=== PATIENT | female | born 1940 | race Caucasian/White ===

== ENCOUNTER → 2024-09-17 | Outpatient (CLI) | payer OTHER, SELFPAY ==
[2024-09-17 08:33] LABS: Basophils % (Auto) 1 % (0-2.5); Eosinophils # (Auto) 0.1 Thou/mm3 (0.0-0.5); Eosinophils % (Auto) 2 % (0-10); Hematocrit 38.1 % (36.0-46.0); Hemoglobin 12.7 g/dL (12.0-16.0); Immature Granulocytes % (Auto) 0 % (0-0); Immature Granulocytes Auto 0.01 Thou/mm3 (0.00-0.00); Lymphocytes # (Auto) 1.6 Thou/mm3 (1.0-4.8); Lymphocytes % (Auto) 26 % (10-50); Mean Corpuscular HGB Conc 33.3 g/dl (31.0-37.0); Mean Corpuscular Hemoglobin 31.9 pg (25.0-35.0); Mean Corpuscular Volume 96 fL (80-100); Monocytes # (Auto) 0.5 Thou/mm3 (0.0-0.8); Monocytes % (Auto) 9 % (0-12); Neutrophils # (Auto) 3.9 Thou/mm3 (1.8-7.7); Neutrophils % (Auto) 64 % (37-80); Nucleated Red Blood Cell % 0 /100 WBC (0); Platelet Count 186 Thou/mm3 (140-440); RDW Standard Deviation 44.8 fL (36.4-46.3); Red Blood Count 3.98 Miln/mm3 (4.00-5.20); White Blood Count 6.2 Thou/mm3 (3.6-11.0)
[2024-09-17 08:43] LABS: Alanine Aminotransferase 15 U/L (10-49); Albumin, Serum 4.4 gm/dL (3.4-4.8); Albumin/Globulin Ratio 1.7 (1.2-2.2); Alkaline Phosphatase 66 U/L (46-116); Anion Gap 8 (7-16); Aspartate Amino Transferase 20 U/L (0-34); BUN/Creatinine Ratio 20 Ratio (12-20); Bilirubin,Total 0.7 mg/dL (0.3-1.2); Blood Urea Nitrogen 22 mg/dL (9-23); Calcium 9.9 mg/dL (8.3-10.6); Calcium (Corrected) 9.9 mg/dL (8.5-10.1); Carbon Dioxide 32.5 mMol/L (20.0-31.0); Cardiac Risk Estimate 2.8 RATIO (3.7-5.6); Chloride 102 mMol/L (98-107); Cholesterol 203 mg/dL (132-200); Creatinine (Component) 1.1 mg/dL (0.6-1.3); Globulin 2.6 gm/dL (2.3-3.5); Glucose 116 mg/dL (74-106); HDL Cholesterol 72 mg/dL (40-60); LDL Cholesterol,Calculated 115 mg/dL (0-130); Osmolality,Calculated 287 (275-295); Potassium 4.3 mMol/L (3.4-5.1); Sodium 142 mMol/L (136-145); Triglycerides 80 mg/dL (30-150); eGFR 49 See Note
[2024-09-17 13:29] LABS: Collection Type, Urine Clean Catch
[2024-09-17 14:01] LABS: Bilirubin,Urine Negative (Negative); Blood,Urine Negative (Negative); Clarity,Urine Clear (Clear/Hazy); Color,Urine Yellow (Lt Yel-Yel); Glucose, Urine Negative (Negative); Hyaline Casts,Urine < 1 /hpf (0-1); Ketones,Urine Negative (Negative); Leukocyte Esterase,Urine Negative (Negative); Nitrite,Urine Negative (Negative); Protein,Urine Negative (Neg - Trace); RBC,Urine 1 /hpf (0-3); Squamous Epithelial Cell,Urine 8 /hpf (0-5); Urobilinogen,Urine Negative mg/dL (0.0-1.0); WBC,Urine 2 /hpf (0-5)
== END | disposition home or self-care (01) ==
LOC: COPL 06:39
PROVIDERS: PCP Internal Medicine; Referring Provider Internal Medicine; Visit Provider Internal Medicine Cardiovascular Disease
DX: I48.91 Unspecified atrial fibrillation (principal)
CPT/HCPCS: 36415; 80053; 80061; 81001; 85025

== ENCOUNTER → 2025-01-20 | Outpatient (CLI) | payer OTHER, SELFPAY ==
--- NOTE | 2025-01-20 | XR_ITS ---
EXAMINATION: Cervical spine, 5 views Technique: Cervical spine AP, AP odontoid, lateral, bilateral obliques, 5 views Exam date and time: January 20, 2025 0720 hours INDICATIONS: Left-sided neck pain beginning 5 years ago. FINDINGS: Straightening normal cervical lordosis. No cervical vertebral body compression fracture The odontoid is not well visualized on the lateral view Partial fusion C4-C5 Advanced degenerative disc disease C6-C7 Diffuse posterior osteophyte formation Diffuse mild to moderate bilateral neural foraminal stenosis IMPRESSION: Partial fusion C4-C5 Advanced degenerative disc disease C6-C7 Bilateral neural foraminal stenosis as above The odontoid is not well visualized on the lateral view, suggest CT scan cervical spine follow-up as clinically warranted
[2025-01-20 07:59] LABS: Collection Type, Urine Clean Catch
[2025-01-20 08:30] LABS: Alanine Aminotransferase 13 U/L (10-49); Albumin, Serum 4.5 gm/dL (3.4-4.8); Alkaline Phosphatase 59 U/L (46-116); Anion Gap 7 (7-16); BUN/Creatinine Ratio 13 Ratio (12-20); Bilirubin,Total 0.7 mg/dL (0.3-1.2); Blood Urea Nitrogen 13 mg/dL (9-23); Calcium 9.9 mg/dL (8.3-10.6); Calcium (Corrected) 9.9 mg/dL (8.5-10.1); Carbon Dioxide 29.9 mMol/L (20.0-31.0); Chloride 102 mMol/L (98-107); Cholesterol 219 mg/dL (132-200); Globulin 2.3 gm/dL (2.3-3.5); Glucose 126 mg/dL (74-106); HDL Cholesterol 72 mg/dL (40-60); LDL Cholesterol,Calculated 128 mg/dL (0-130); Osmolality,Calculated 279 (275-295); Potassium 4.8 mMol/L (3.4-5.1); Sodium 139 mMol/L (136-145); Total Protein 6.8 gm/dL (5.7-8.2); Triglycerides 94 mg/dL (30-150); eGFR 55 See Note
[2025-01-20 08:35] LABS: Basophils % (Auto) 1 % (0-2.5); Eosinophils # (Auto) 0.1 Thou/mm3 (0.0-0.5); Eosinophils % (Auto) 1 % (0-10); Hematocrit 36.3 % (36.0-46.0); Hemoglobin 12.5 g/dL (12.0-16.0); Immature Granulocytes % (Auto) 0 % (0-0); Immature Granulocytes Auto 0.01 Thou/mm3 (0.00-0.00); Lymphocytes # (Auto) 1.9 Thou/mm3 (1.0-4.8); Lymphocytes % (Auto) 28 % (10-50); Mean Corpuscular HGB Conc 34.4 g/dl (31.0-37.0); Mean Corpuscular Hemoglobin 32.1 pg (25.0-35.0); Mean Corpuscular Volume 93 fL (80-100); Monocytes # (Auto) 0.6 Thou/mm3 (0.0-0.8); Monocytes % (Auto) 9 % (0-12); Neutrophils # (Auto) 4.1 Thou/mm3 (1.8-7.7); Neutrophils % (Auto) 61 % (37-80); Nucleated Red Blood Cell % 0 /100 WBC (0); Platelet Count 234 Thou/mm3 (140-440); RDW Standard Deviation 44.6 fL (36.4-46.3); Red Blood Count 3.89 Miln/mm3 (4.00-5.20); White Blood Count 6.8 Thou/mm3 (3.6-11.0)
[2025-01-20 09:01] LABS: Bilirubin,Urine Negative (Negative); Blood,Urine Negative (Negative); Clarity,Urine Clear (Clear/Hazy); Color,Urine Yellow (Lt Yel-Yel); Glucose, Urine Negative (Negative); Hyaline Casts,Urine < 1 /hpf (0-1); Ketones,Urine Negative (Negative); Leukocyte Esterase,Urine Negative (Negative); Nitrite,Urine Negative (Negative); PH,Urine 6.5 (5.0-7.0); Protein,Urine Trace (Neg - Trace); RBC,Urine 4 /hpf (0-3); Specific Gravity,Urine 1.021 (1.001-1.035); Squamous Epithelial Cell,Urine 3 /hpf (0-5); Urobilinogen,Urine Negative mg/dL (0.0-1.0); WBC,Urine 3 /hpf (0-5)
== END | disposition home or self-care (01) ==
LOC: CDIM 06:40
PROVIDERS: PCP Internal Medicine; Referring Provider Internal Medicine; Visit Provider Internal Medicine
DX: M50.323 Other cervical disc degeneration at C6-C7 level (principal); M48.02 Spinal stenosis, cervical region; M43.22 Fusion of spine, cervical region
CPT/HCPCS: 36415; 72050; 80053; 80061; 81001; 85025

== ENCOUNTER → 2025-02-13 | Outpatient (CLI) | payer OTHER, SELFPAY ==
--- NOTE | 2025-02-13 09:15 | XR_ITS ---
Examination: Breast ultrasound complete, bilateral Date and time of exam: February 13, 2025 0922 hours INDICATIONS: Breast pain beginning one year ago Technique: Real-time grayscale ultrasonographic imaging bilateral breasts, including all 4 quadrants as well as nipple retroareolar and axillary regions. Findings: Sonographic images right and left breast demonstrated no cystic or solid masses IMPRESSION: BI-RADS Category 1: Negative studies
== END | disposition home or self-care (01) ==
PROVIDERS: PCP Internal Medicine; Referring Provider Internal Medicine; Visit Provider Internal Medicine
DX: N64.4 Mastodynia (principal)
CPT/HCPCS: 76641

== ENCOUNTER 2025-02-25 07:17 | Inpatient (IN) | payer OTHER, MEDICARE, SELFPAY ==
[2025-02-25] VITALS (9 sets, daily range): BP systolic 92–140; BP diastolic 49–75; PULSE 52–93; RESP 14–20; TEMP 36.4–36.8; O2SAT 94–100; BMI 22.6
--- NOTE | 2025-02-25 07:35 | XR_ITS ---
Examination: CT brain head without contrast. Date and time of exam: TECHNIQUE: 2024, 0806 hours INDICATIONS: Stroke alert, onset altered mental status today CTDI: vol (mGy):130 DLP: (mGycm):3085 Technique: Multiple axial sections of the brain to been obtained, 5 mm slice thickness. Contrast has not been administered. 2-D sagittal, coronal reconstructions have been obtained Low dose protocols were performed. One or more of the following dose reduction techniques were used; automated exposure control, adjustment of the mA and/or KV according to patient size, use of iterative reconstruction technique. Findings: No significant ventricular enlargement. Intra-axial or extra-axial hemorrhage density is not seen. No mass effect or midline shift. Basal cisterns are not remarkable. Fourth ventricle is midline. Cranial vault intact. Impression: Negative for acute hemorrhage, mass effect or midline shift
--- NOTE | 2025-02-25 07:35 | XR_ITS ---
Examination:Right hip AP, lateral, AP pelvis 3 views Technique: Hip AP lateral, AP pelvis, 3 views Exam date and time:February 25, 2025 0743 hours INDICATIONS: Patient fell today with injury to the right hip, right hip pain. FINDINGS: Acute displaced fracture right femoral neck Left hip bones of the pelvis is intact IMPRESSION: Acute displaced fracture right femoral neck.
[2025-02-25] MEDS: MORPHINE SULF INJ 10 MG/ML VIAL 4 MG IVP ×2 (07:59→11:15)
--- NOTE | 2025-02-25 08:06 | PC.NURSE ---
PATIENT ARRIVED ED WITH COMPLAINT OF RIGHT HIP PAIN S/P FALL THIS MORNING. PATIENT STATES SHE WAS OUTSIDE IN THE YARD PICKING UP TRASH WITH SHE LOST HER BALANCE LANDING ON HER RIGHT HIP. PATIENT WITH SHORTENING AND EXTERNAL ROTATION. PATIENT ALSO PRESENTS WITH SKIN TEAR TO RIGHT ARM. PATIENT WITH PAIN 10/10 ON PAIN SCALE. EMS ADMINISTERED 56MG FENTANYL AND 1000MG TYLENOL. PATIENT DENIES HEAD PAIN AND NO TRAUMA. CALL LIGHT WITHIN REACH. WILL CONTINUE TO MONITOR
--- NOTE | 2025-02-25 08:27 | PD.EDFALL ---
ED Fall Injury RME/HPI General Chief Complaint: Fall Stated Complaint: HIP PAIN Time Seen by Provider: 02/25/25 07:28 Arrival date/time: 02/25/25 07:17 RME / HPI RME / HPI Narrative: 84 year old female with a nonsyncopal trip and fall accident earlier this morning in her backyard. She did not hit her head. No loss of consciousness. Related Data Home Medications ?Medication ?Instructions ?Recorded ?Confirmed amiodarone 200 mg tablet 200 mg PO QPM 09/04/18 10/31/23 aspirin 81 mg tablet,delayed 81 mg PO DAILY 05/20/19 10/31/23 release (Aspir-) timolol 0.5 % eye drops 1 drp ophthalmic (eye) BID 05/20/19 10/31/23 albuterol 90 mcg/actuation aerosol 90 mcg inhalation PRN PRN 05/09/22 10/31/23 inhaler Shortness Of Breath Or Wheezing ferrous sulfate 325 mg (65 mg 325 mg PO DAILY 05/09/22 10/31/23 iron) capsule,extended release ferrous sulfate 325 mg (65 mg 325 mg PO QDAY 05/09/22 10/31/23 iron) tablet (iron) fluticasone propionate 50 1 spray intranasal HS 05/09/22 10/31/23 mcg/actuation nasal spray,suspension loratadine 10 mg tablet 10 mg PO QDAY 05/09/22 10/31/23 chykatps-kxnx-csek 8 mg-folic 400 1 tab PO DAILY 05/09/22 10/31/23 mcg-K 50 mcg-lutein 300 mcg tablet (Centrum Silver Women) nitroglycerin 0.4 mg sublingual 0.4 mg buccal 1XD PRN Chest Pain 05/09/22 10/31/23 tablet tizanidine 2 mg tablet 2 mg PO DAILY 05/09/22 10/31/23 vitamin E 400 unit tablet 45 mg PO QDAY 05/09/22 10/31/23 mirabegron 25 mg tablet,extended 25 mg PO QDAY 03/02/23 10/31/23 release 24 hr (Myrbetriq) Allergies Allergy/AdvReac Type Severity Reaction Status Date / Time Iodine and Iodide Containing AdvReac Mild Rash Verified 09/22/23 08:11 Produc Review of Systems Review of Systems Systems Reviewed: All systems reviewed, normal except as documented Past Medical History Past Medical History NEUROLOGIC: Negative Neurological Disorders, Cerebrovascular Accident, Transient Ischemic Attacks (TIA), Dementia, Alzheimer's Disease, Parkinson's Disease, Brain Tumor, Meningitis, Seizures, Epilepsy, Multiple Sclerosis, Cerebral Palsy, Amyotrophic Lateral Sclerosis (ALS/Sarah Gehrig's), Guillain-[place] Syndrome, Spina Bifida, Paralysis, Peripheral Neuropathy, Perez's Palsy, Subdural Hematoma, Migraine, Head Trauma, Spinal Cord Injury or Traumatic Brain Injury CARDIAC: Positive Cardiac Disorders, Angina, Coronary Artery Disease, Atherosclerotic Heart Disease and Edema; Negative Myocardial Infarction, Cardiac Arrhythmia, Atrial Fibrillation, Heart Murmur, Peripheral Vascular Disease, Hypercholesterolemia, Aneurysm, Congestive Heart Failure, Congenital Heart Disease, Valvular Heart Disease, Rheumatic Fever, Cardiomyopathy, Pericarditis, Cellulitis, Deep Vein Thrombosis, Hypertension, Hypotension or Varicose Veins RESPIRATORY: Positive Chronic Obstructive Pulmonary Disease (COPD); Negative Asthma, Bronchitis, Emphysema, Pneumonia, Pulmonary Fibrosis, Cystic Fibrosis, Tuberculosis, Pulmonary Embolism, Pulmonary Edema or Sleep Apnea GASTROINTESTINAL: Positive Gastrointestinal Disorders and Gall Bladder Disease (CHOLECYSTECTOMY); Negative Hepatitis, Cirrhosis, Pancreatitis, Celiac Disease, Gastrointestinal Bleed, Esophageal Varices, Munoz's Esophagus, Colitis, Ulcerative Colitis, Diverticulitis, Diverticulosis, Ulcer, Colorectal Cancer, Irritable Bowel, Crohn's Disease, Obstructive Bowel, Hiatal Hernia, Hemorrhoids, Gastroesophageal Reflux Disease or Obesity GENITOURINARY: Negative Genitourinary Disorders, Renal Disease, Kidney Stones, Polycystic Kidney Disease, Neurogenic Bladder, Inguinal Hernia, Dialysis or Prostate Cancer REPRODUCTIVE: Positive Previous Pregnancies (); Negative Breast Cancer, Endometriosis, Genital Herpes, Gonorrhea, Pelvic Inflammatory Disease, Syphilis, Testicular Cancer or Uterine Prolapse MUSCULOSKELETAL: Positive Musculoskeletal Disorders, Arthritis and Fractures (L ARM); Negative Muscular Dystrophy, Myasthenia Gravis, Marfan's Syndrome, Bone Cancer, Rheumatoid Arthritis, Osteoporosis, Degenerative Disk Disease, Gout, Scoliosis, Carpal Tunnel Syndrome, Fibromyalgia, Degenerative Joint Disease, Osteomyelitis or Poliovirus ENT: Positive Glaucoma; Negative Cataracts, Blind, Retinal Detachment, Macular Degeneration, Ear Infection, Deafness, Head Trauma or Eye Prosthesis ENDOCRINE: Negative Endocrine Disorders, Diabetes Mellitus Type 1, Diabetes Mellitus Type 2, Hypoglycemia, [place]'s Syndrome, Ryne's Disease, Hyperthyroidism, Hypothyroidism, Parathyroid Disease, Pituitary Disease, Systemic Lupus Erythematosus, Syndrome of Inappropriate Antidiuretic Hormone (SIADH), Adrenal Disease or Graves' Disease HEMATOLOGIC: Negative Blood Disorders, Anemia, Leukemia, Hemophilia, Thalassemia or Sickle Cell Disease PSYCHO/SOCIAL: Negative Psychiatric Problems, Schizophrenia, Recreational Drug Use, Bipolar Disorder, Depression, Anxiety, Behavior Problems, Self-Mutilation, Attention Deficit Disorder, Attention Deficit Hyperactivity Disorder, Depression, Post Traumatic Stress Disorder or Eating Disorder OTHER HISTORY: Positive Hospitalization, Shingles, Falls, Chicken Pox and Measles; Negative Autoimmune Disease, Down Syndrome, Autism, Developmental Delay, Blood Transfusions, Blood Transfusion Reaction, Anesthesia Reactions, Organ Transplant, Chemotherapy, Radiation Therapy, Hyperbaric Therapy, MRSA, Vancomycin-Resistant Enterococci, Human Immunodeficiency Virus (HIV), Mumps, Rubella (Iranian Measles), Pertussis, Clostridium Difficile, Cancer, Breast Cancer, Cervical Cancer, Colorectal Cancer, Lung Cancer, Ovarian Cancer, Prostate Cancer or Testicular Cancer Family History FAMILY HISTORY: Positive Family Respiratory Disorders (FATHER), Family Cardiac Disorders (SISTER), Family Gastrointestinal Problems and Family Cancer; Negative Family Psychiatric Problems, Family Surgery or Family Anesthesia Reaction Surgical History SURGICAL: Positive Cardiac Catheterization, Angiogram, Tonsillectomy, Abdominal Surgery and Hysterectomy; Negative Cardiac Surgery, Open Heart Surgery, Coronary Artery Bypass Graft, Valve Replacement, Vascular Surgery, Coronary Stent, Pacemaker, Auto Implanted Cardiovert Defib, Carotid Endarterectomy, Endocrine Surgery, Thyroidectomy, Ear Surgery, Tympanostomy Tube, Eye Surgery, Nose Surgery, Oral Surgery, Adenoidectomy, Cochlear Implant, Corneal Transplant, Throat Surgery, Tracheostomy, Gastric Bypass Surgery, Gastrostomy, Bowel Surgery, Nephrectomy, Transurethral Resection, Joint Replacement, Amputation, Open Reduction Internal Fixation, Arthroscopy, Neurologic Surgery, Brain Shunt, Mastectomy, Lumpectomy, Tubal Ligation, Section or Organ Transplant Social History SMOKING STATUS: Never smoker ED Exam Narrative Physical exam: Generally patient is alert in mild to moderate distress secondary to pain. Heart regular rate and rhythm lungs clear to auscultation bilaterally abdomen soft bowel sounds present times and nontender extremities show external rotation and shortening of the right lower extremity with tenderness at the right hip. Patient's right lower extremity is neurovascularly intact. Course Quality Measures none Orders Category Date Time Status Admit to Inpatient Status Routine Admission 02/25/25 09:43 Active Patient Condition Routine Admission 02/25/25 09:42 Ordered Activity as Tolerated Routine Care 02/25/25 09:43 Ordered Continuous Pulse Oximetry NOW Care 02/25/25 09:42 Active Notify provider NEEDED Care 02/25/25 09:42 Active Obtain Written Consent For: .NOW Care 02/25/25 09:41 Active Obtain weight X1 Care 02/25/25 09:42 Active XR chest 1V portable Stat Exams 02/25/25 07:35 Completed XR femur RT 2V Stat Exams 02/25/25 09:42 Ordered XR hip RT w pelvis 2-3V Stat Exams 02/25/25 07:35 Completed XR knee RT 3V Stat Exams 02/25/25 09:42 Ordered CBC Stat Lab 02/25/25 08:15 Completed CMP [Comprehensive Metabolic Panel] Stat Lab 02/25/25 08:15 Completed PT [Prothrombin Time with INR] Stat Lab 02/25/25 08:15 Completed HYDROcodone*/APAP 5/325 [[place] 5/325] Med 02/25/25 09:42 Active 1 tab PO Q4HR PRN Morphine Inj Med 02/25/25 07:35 Discontinued 4 mg IVP X1 ONE Code Status Routine Oth 02/25/25 09:42 Ordered Oxygen Delivery PRN RT 02/25/25 09:42 Active Vital Signs Vital signs: Vital Signs Temperature 97.9 F 02/25/25 07:28 Pulse Rate 62 02/25/25 07:28 Respiratory Rate 20 02/25/25 07:28 Blood Pressure 127/75 02/25/25 07:28 Fall MDM Narrative MDM Narrative:: X-ray of the right hip shows a femoral neck fracture. Preop labs were ordered. I discussed this case with orthopedic surgeon Dr. Gonzalez who asked for full femur x-rays to be obtained as well as the knee so those were ordered as well. I discussed this with the hospitalist. Patient will be admitted to the hospital for further treatment and evaluation for her right femoral neck fracture. Patient data External records reviewed:: [facility] previous records Clinical information provided by:: patient Social determinants that could affect healthcare access:: none Patient has the following chronic illnesses:: Atrial fibrillation How is presenting disease/condition affected by chronic disease/condition?: no chronic disease Evaluation data The following diagnostics were reviewed and interpreted by me:: lab results and radiology exam(s) Lab and/or radiology exams considered but not ordered:: None Interpretation Summary: All labs were reviewed and interpreted by myself Medications / Prescriptions Medications or Prescriptions considered but not ordered:: Medications were reviewed Medication administrations:: Medication Administration History Hydrocodone Bitart/Acetaminophen (Hydrocodone/Apap 5/325 Tablet) 1 tab PO Q4HR PRN PRN Reason: PAIN SCALE 4-6 (Moderate Stop: 03/02/25 09:41 Discontinued Medications Morphine Sulfate (Morphine Sulf Inj 10 Mg/Ml Vial) 4 mg IVP X1 ONE Stop: 02/25/25 07:36 Last Admin: 02/25/25 07:59 Dose: 4 mg Documented By: SM See above Consultations Consultation(s) initiated? (list below): Yes Consultation #1 (Physician, Specialty, Details): Dr. Gonzalez Time: 09:30 Consultation #2 (Physician, Specialty, Details): Hospitalist Time: 09:40 Diagnosis Fall Differential Diagnosis: other Most likely diagnosis given after review of the tests above:: Right femoral neck fracture Admission Indicated Admission indicated?: indicated Admission Request Was there a request for admission?: Yes Admission Attestation Admission request attestation: Discussed case with [] from Hospitalist service regarding admission. Discussed patients ED course, exam findings, labs, and radiology results. The Hospitalist [agrees,declines] to accept the patient for admission. Disposition Plan Disposition Plan: Admit Discharge Plan Plan Patient Disposition: Admit Acute Care w/in Hospital Prescriptions/Referrals Prescriptions/Med Rec: No Action Myrbetriq 25 mg tablet extended release 24 hr 25 mg PO QDAY amiodarone 200 mg Tablet 200 mg PO QPM aspirin [Aspir-81] 81 mg Tablet,Delayed Release (Dr/Ec) 81 mg PO DAILY timolol 0.5 % Drops 1 drp OPHTHALMIC (EYE) BID nitroglycerin 0.4 mg Tablet, Sublingual 0.4 mg BUCCAL 1XD PRN (Reason: Chest Pain) fluticasone propionate 50 mcg/actuation [place],Suspension 1 spray INTRANASAL HS Rx Instructions: administer into each nostril ferrous sulfate 325 mg (65 mg iron) Capsule, Extended Release 325 mg PO DAILY tizanidine 2 mg Tablet 2 mg PO DAILY Centrum Silver Women 8 mg iron-400 mcg-300 mcg Tablet 1 tab PO DAILY ferrous sulfate [iron] 325 mg (65 mg iron) Tablet 325 mg PO QDAY vitamin E 400 unit Tablet 45 mg PO QDAY albuterol 90 mcg/actuation Aerosol 90 mcg INHALATION PRN PRN (Reason: Shortness Of Breath Or Wheezing) loratadine 10 mg Tablet 10 mg PO QDAY Referrals: Adriana Knutson MD [Primary Care Provider] - In 1 week Problem List Clinical Impression: Closed displaced fracture of right femoral neck Patient/Caregiver Discharge Instructions Print Language: Algerian Stand Alone Forms: Kateryna Award Info., Patient Portal Info Letter
[2025-02-25 08:32] LABS: Basophils # (Auto) 0.0 Thou/mm3 (0.0-0.2); Basophils % (Auto) 0 % (0-2.5); Eosinophils # (Auto) 0.0 Thou/mm3 (0.0-0.5); Eosinophils % (Auto) 0 % (0-10); Hematocrit 33.2 % (36.0-46.0); Hemoglobin 11.5 g/dL (12.0-16.0); Immature Granulocytes Auto 0.08 Thou/mm3 (0.00-0.00); Lymphocytes # (Auto) 1.4 Thou/mm3 (1.0-4.8); Lymphocytes % (Auto) 13 % (10-50); Mean Corpuscular HGB Conc 34.6 g/dl (31.0-37.0); Mean Corpuscular Hemoglobin 32.5 pg (25.0-35.0); Mean Corpuscular Volume 94 fL (80-100); Monocytes # (Auto) 0.6 Thou/mm3 (0.0-0.8); Monocytes % (Auto) 6 % (0-12); Neutrophils # (Auto) 8.3 Thou/mm3 (1.8-7.7); Neutrophils % (Auto) 80 % (37-80); Nucleated Red Blood Cell # 0.00 Thou/mm3 (0.00-0.00); Nucleated Red Blood Cell % 0 /100 WBC (0); Platelet Count 189 Thou/mm3 (140-440); RDW Standard Deviation 44.6 fL (36.4-46.3); Red Blood Count 3.54 Miln/mm3 (4.00-5.20); White Blood Count 10.3 Thou/mm3 (3.6-11.0)
[2025-02-25 08:42] LABS: INR 1.1 (0.9-1.3); Prothrombin Time 11.9 Seconds (9.0-12.2)
[2025-02-25 08:44] LABS: Alanine Aminotransferase 22 U/L (10-49); Albumin, Serum 4.0 gm/dL (3.4-4.8); Albumin/Globulin Ratio 1.7 (1.2-2.2); Alkaline Phosphatase 56 U/L (46-116); Anion Gap 7 (7-16); Aspartate Amino Transferase 23 U/L (0-34); BUN/Creatinine Ratio 13 Ratio (12-20); Bilirubin,Total 0.8 mg/dL (0.3-1.2); Blood Urea Nitrogen 13 mg/dL (9-23); Calcium 9.5 mg/dL (8.3-10.6); Calcium (Corrected) 9.5 mg/dL (8.5-10.1); Carbon Dioxide 26.8 mMol/L (20.0-31.0); Chloride 100 mMol/L (98-107); Creatinine (Component) 1.0 mg/dL (0.6-1.3); Estimated Creatinine Clearance 36.9 mL/min (>60); Globulin 2.3 gm/dL (2.3-3.5); Glucose 148 mg/dL (74-106); Osmolality,Calculated 271 (275-295); Potassium 4.5 mMol/L (3.4-5.1); Sodium 134 mMol/L (136-145); Total Protein 6.3 gm/dL (5.7-8.2); eGFR 55 See Note
--- NOTE | 2025-02-25 09:42 | XR_ITS ---
Examination: Right knee 2 views TECHNIQUE: Portable AP lateral right knee 2 views Date and time: February 25, 2025 at 0951 hours FINDINGS: Limited study, no true lateral view the knee No fracture depicted Moderate narrowing medial lateral patellofemoral joints IMPRESSION: Limited study with no acute fracture
--- NOTE | 2025-02-25 09:42 | XR_ITS ---
Indication: Right femur 2 views Technique one AP lateral right femur 2 views Date and time: February 25, 2025 0948 hours INDICATIONS: Patient fell today with injury to the femur, femur pain. FINDINGS: Acute displaced right femoral neck fracture. Shaft of the femur intact IMPRESSION: Acute displaced right femoral neck fracture
[2025-02-25] MEDS: ONDANSETRON INJ 2 MG/ML INJ 2 ML 4 MG IV ×2 (11:15→20:21)
--- NOTE | 2025-02-25 11:29 | PD.RESHP ---
Documentation for date of: 02/25/25 HPI History of Present Illness Chief complaint: Fracture of Rt femoral neck History of present illness: Mayi Fox is a 84F pmhx significant for atrial fibrillation, CKDIII, COPD on 2L at home, depression, and anemia who presents with mechanical fall. She reports that earlier this morning she was gardening in the back yard when she tripped over her feet and fell. Denies frequent falls, syncope, dizziness or palpitations at the time of the fall or currently. Reports that she uses 2L of O2 at night and sometimes during the day when she feels short of breath. Denies chest pain, SOB or fever. Currently reports no pain as was given morphine in ED. PMHx: atrial fibrillation, CKDIII, COPD on 2L, depression, anemia, urinary urge incontinence, GERD, osteoarthritis Surgical Hx: remote hysterectomy FHx: Noncontributory Social Hx: denies alcohol, tobacco or recreational drug use. Lives alone and is independent with all ADLs Allergies: iodine- rash Medications: Trelegy 100/62.5 1 puff prn, pantoprazole 20 mg QD, solifenacin 10 mg QD, ASA 81 mg QD, amiodarone 200 mg QD, furosemide 20 mg QD, timolol 1 drop BID, In ED, BP 127/75 HR 62, satting 94% on 4L O2, significant labs include Hgb 11.5, Cr 1.0, GFR 55, and glucose 148. In ED, given morphine 4 mg x2 and zofran. Hip X-ray showed acute displaced fracture of Rt femoral neck. Femur x-ray shows shaft of femur intact, acute displaced Rt femoral neck fracture. Rt knee X-ray shows a limited study w no acute fracture. Patient was admitted for right femoral neck fracture, Dr. Gonzalez consulted for surgery. Review of Systems Review of Systems Systems Reviewed: All systems reviewed, normal except as documented Exam Vital Signs Temp Pulse Resp BP Pulse Ox O2 Del Method O2 Flow Rate 97.9 F 60 20 127/72 96 Nasal Cannula 4 02/25/25 10:01 02/25/25 10:01 02/25/25 10:01 02/25/25 10:01 02/25/25 10:01 02/25/25 10:01 02/25/25 10:01 Narrative Exam General: AOx3, no acute distress HEENT: NC/AT, mucous membranes moist, bilateral sclera anicteric Cardiovascular: regular rate and rhythm, S1/S2 present, no murmurs appreciated Pulmonary: clear to auscultation bilaterally, no rales/rhonchi/wheezes Abdominal: soft, non-tender, non-distended, no rebound/guarding, bowel sounds present Extremities: no peripheral edema, Rt leg is straight, cushioned with pillows, externally rotated and shortened Skin: warm and dry, intact, no rashes Neuro CN II-XII grossly intact, no focal deficits, alert, following commands Results: Labs 02/25/25 08:15 02/25/25 08:15 Labs: Short CBC 02/25/25 Range/Units 08:15 WBC 10.3 (3.6-11.0) Thou/mm3 Hgb 11.5 L (12.0-16.0) g/dL Hct 33.2 L (36.0-46.0) % Plt Count 189 D (140-440) Thou/mm3 BMP 02/25/25 08:15 Sodium 134 L Potassium 4.5 Chloride 100 Carbon Dioxide 26.8 BUN 13 Creatinine 1.0 Glucose 148 H Calcium 9.5 Liver Function 02/25/25 Range/Units 08:15 Total Bilirubin 0.8 (0.3-1.2) mg/dL AST 23 (0-34) U/L ALT 22 (10-49) U/L Alkaline Phosphatase 56 (46-116) U/L Albumin 4.0 (3.4-4.8) gm/dL Quality Measures Quality Measures none Advance care planning discussed with:: patient Medications Home Medications and Allergies Home Medications ?Medication ?Instructions ?Recorded ?Confirmed ?Type amiodarone 200 mg tablet 200 mg PO QPM 09/04/18 02/25/25 History aspirin 81 mg tablet,delayed 81 mg PO PRN 05/20/19 02/25/25 History release (Aspir-) timolol 0.5 % eye drops 1 drp ophthalmic (eye) BID 05/20/19 02/25/25 History albuterol 90 mcg/actuation aerosol 90 mcg inhalation PRN PRN 05/09/22 02/25/25 History inhaler Shortness Of Breath Or Wheezing ferrous sulfate 325 mg (65 mg 325 mg PO DAILY 05/09/22 02/25/25 History iron) capsule,extended release ferrous sulfate 325 mg (65 mg 325 mg PO QDAY 05/09/22 02/25/25 History iron) tablet (iron) fluticasone propionate 50 1 spray intranasal HS 05/09/22 02/25/25 History mcg/actuation nasal spray,suspension loratadine 10 mg tablet 10 mg PO QDAY 05/09/22 02/25/25 History pszcmwst-ofbc-kakl 8 mg-folic 400 1 tab PO DAILY 05/09/22 02/25/25 History mcg-K 50 mcg-lutein 300 mcg tablet (Centrum Silver Women) nitroglycerin 0.4 mg sublingual 0.4 mg buccal 1XD PRN Chest Pain 05/09/22 02/25/25 History tablet tizanidine 2 mg tablet 2 mg PO PRN PRN muscle spasticity 05/09/22 02/25/25 History vitamin E 400 unit tablet 45 mg PO QDAY 05/09/22 02/25/25 History mirabegron 25 mg tablet,extended 25 mg PO QDAY 03/02/23 02/25/25 History release 24 hr (Myrbetriq) Allergies Allergy/AdvReac Type Severity Reaction Status Date / Time Iodine and Iodide Containing AdvReac Mild Rash Verified 09/22/23 08:11 Produc Visit Medications Acetaminophen (Acetaminophen 325 Mg Tablet) 650 mg PO Q6H PRN PRN Reason: PAIN 1-3 OR FEVER > 101 Stop: 03/27/25 10:42 Hydrocodone Bitart/Acetaminophen (Hydrocodone/Apap 5/325 Tablet) 1 tab PO Q4HR PRN PRN Reason: PAIN SCALE 4-6 (Moderate Stop: 03/02/25 09:41 Morphine Sulfate (Morphine Sulf Inj 10 Mg/Ml Vial) 4 mg IVP Q6HR PRN PRN Reason: PAIN SCALE 7-10 severe Stop: 03/02/25 10:44 Last Admin: 02/25/25 11:15 Dose: 4 mg Ondansetron HCl (Ondansetron Inj 2 Mg/Ml Inj 2 Ml) 4 mg IV Q6H PRN; Protocol PRN Reason: NAUSEA OR VOMITING Stop: 03/27/25 10:42 Last Admin: 02/25/25 11:15 Dose: 4 mg Sennosides (Senna Tablet) 2 tab PO BID PRN; Protocol PRN Reason: CONSTIPATION Stop: 03/27/25 10:42 Discontinued Medications Morphine Sulfate (Morphine Sulf Inj 10 Mg/Ml Vial) 4 mg IVP X1 ONE Stop: 02/25/25 07:36 Last Admin: 02/25/25 07:59 Dose: 4 mg Morphine Sulfate (Morphine Sulf Inj 10 Mg/Ml Vial) 4 mg IVP Q6HR PRN PRN Reason: PAIN SCALE 4-10(Mod-Sev Stop: 03/02/25 10:44 Assessment & Plan Plan Mayi Fox is a 84F pmhx significant for atrial fibrillation, CKDIII, COPD on 2L at home, depression, and anemia who presents with fall, admitted for Rt femoral neck fracture, Dr. Gonzalez consulted for surgery. #Displaced right femoral neck fracture Patient sustained mechanical ground level fall while gardening, denies syncope or headstrike Hip x-ray shows acute displaced fracture of Rt femoral neck. Femur x-ray shows shaft of femur intact, acute displaced Rt femoral neck fracture. Rt knee X-ray shows a limited study w no acute fracture. CXR done, but report contained CT head findings which was neg for acute hemorrhage. Plan: -Dr. Gonzalez consulted for surgery -NPO -Pain scale regimen: norco 5 q4h prn, morphine 4 q6h prn -Zofran prn for nausea -Post op PT #Atrial Fibrillation, rate controlled, stable Patient is unaware she has atrial fibrillation, but upon chart review, she is taking ASA and amiodarone and follows Dr. Quinones outpatient. Denies palpitations. At bedside, is in sinus rhythm. Plan: -Hold home ASA 81 mg and amiodarone 200 mg for now -CTM #Normocytic anemia, stable Admission Hgb 11.5 MCV 94, but Hgb 12.5 01/2025. Is on iron supplements at home. Plan: -CTM and manage outpatient #CKD Stage IIIa, stable Admission GFR 55 Cr 1.0 at baseline. Plan: -CTM, trend -Hold Lasix for now iso surgery -Avoid nephrotoxic medication -Renally dose medication #Urinary urge incontinence #Osteoarthritis Chronic medical conditions nonpertinent to the following presentation Plan: -Hold solifenacin 10 mg QD and topical diclofenac for now Hospital management: Diet: NPO Bowel: Senna GI prophylaxis: none for now DVT prophylaxis: none iso surgery Disposition: med surg for Rt femoral fracture surgery CODE STATUS: Full code Plan of care discussed with attending Dr. Knutson, and PGY-2 Dr. Del Toro. Shana Vazquez, DO PGY-1 Internal Medicine Attending Provider Attestation/Addendum Patient seen and examined with resident physician Dr. Vazquez. Note reviewed, agree with findings and recommendations. Status post fall-right femoral fracture. orthopedic consultation requested by ER provider. Might need cardiology clearance due to history of A-fib. Hold Rex.
--- NOTE | 2025-02-25 11:52 | PD.SUROPNT ---
Date of Procedure 02/26/25 Pre Op Diagnosis right hip femoral neck fracture displaced Post Op Diagnosis right hip femoral neck fracture displaced Procedure right hip hemiarthroplasty Findings displaced femoral neck fracture Procedure Description Indications: The patient is a 84y.o. year-old with a right femoral neck fracture after ground-level fall. After considering the patient's condition and the impact of their hip injury on the patient's quality of life and risks of nonoperative treatment, total hip replacement was offered as a reasonable option. Prior to the surgery I discussed the nature of the hip replacement surgery including alternatives to surgery and the purpose of, and indications for proceeding with surgery. I discussed that this surgery is a shared decision between the patient and the surgeon. Risks and benefits and alternatives of the procedure have been explained to the patient and their family. Anesthesia complications and risks include but are not limited to stroke, heart attack, and . The surgical risks include but are not limited to infection, instability/dislocation, bleeding, nerve and blood vessel injury, deep vein thrombosis, pulmonary embolus, stiffness, pain, scar, need for reoperation, leg length discrepancy, thigh numbness, weakness, and mechanical failure of the implant including loosening, metal complications, metal allergy, wear or breakage. I discussed the expected recovery from surgery and the importance of compliance with all our pre and post-operative recommendations in order to maximize the recovery. The patient/family understands the risks of loss of life, loss of limb and, loss of function and wishes to proceed. They understand they are at increased risk for infection given their history of smoking. A signed and witnessed consent was obtained and placed in the chart. We also discussed that she is at risk for wound complications because of her blood thinner history. She was bridged on heparin drip as her INR went down to 1.2. Patient Positioning: The patient was placed in the lateral decubitus position on a standard table using a pegboard. An axillary role was placed. All extremities were padded to ensure adequate protection. A starkey catheter was aseptically inserted. Time Out: A timeout was performed prior to the procedure which verified the correct patient, positioning, operation to be performed, operative site, antibiotics, allergies, imaging, and any other concerns. All parties were in agreement. Procedure in detail: The operative site was cleaned and draped in the usual sterile fashion. A final timeout was performed with all parties in agreement. A modified anterolateral approach to the hip was utilized. A 16cm skin incision was made centered over the greater trochanter in line with the femur. This was taken down through skin and subcutaneous tissue using a 10 blade. Bleeding was controlled using electrocautery. The fascia was identified and split in line with the femur. The charnley retractor was then placed. The abductor insertion was identified and a split made in the anterior 1/3 of the tendon proximally. Retractors were placed and the gluteus minimus was visualized. A capsulotomy was made down to the femoral neck anterior to the minimus. A split was then made in the anterior 1/3 of the vastus lateralis. A retractor was then placed anterior to the femoral shaft, the tendon was tagged with #1 ethibond sutures and a U-shaped split was made in the anterior 1/3 of the abductor tendon being careful to leave enough tendon to re-attach. The hip was then gently externally rotated as the anterior tissues were taken down with the tendon and capsule as one sleeve. A femoral neck fracture was visualized. The hip was gently dislocated. Retractors were placed around the femoral neck and the femoral neck osteotomy was then made to freshen up the cut. The femoral head was then removed. We then turned our attention to the femur. The leg was brought into external rotation and the femur was exposed. A canal finder was used followed by a box osteotomy and the femur was broached sequentially. The trial stem was then left in and the hip was trialed using various neck offsets and head sizes until the appropriate size was found based on leg length, stability. Once we were satisfied with the construct a cross-table AP pelvis radiograph was obtained to confirm appropriate positioning and sizing. The hip was then dislocated and the trials were then removed and the final stem impacted into placed. The hip was then again trialed and the appropriate head size identified. The marie taper was then cleaned and dried and the final head impact into place and tested. The acetabulum was irrigated and confirmed to be free of debris. The hip was then reduced and taken through range of motion. The hip was stable in abduction and external rotation, adduction and external rotation, flexion past 90 degrees and internal rotation past 20 degrees. It did not sublux throughout range of motion and no impingement was detected. Leg lengths were appropriately restored based on preoperative leg lengths and intraoperative testing. . The hip was then copiously irrigated with dilute betadine followed by normal saline. The hip was then injected with the cocktail per protocol The hip was the closed in layers. The abductor tendon was closed with #1 ethibond. The fascia was closed with 0 Vicryl followed by an 0 V-lock. . The deep layer was closed with 0-Vicryl and the subcutaneous layer by a 2-0 Vicryl. The subdermal layer was closed with a 3-0 monocryl. The skin was then cleaned and dried and steri-strips placed followed by a sterile dressing. The drapes were then taken down and the patient was placed supine. Leg lengths were confirmed to be appropriate and the patient's lower extremities were warm and well perfused with brisk capillary refill and palpable pulses. The patient was then awoken, transferred to the [facility] and taken to the PACU in stable condition. They tolerated the procedure well. The patient's family/caregiviers were made aware of their condition. Postoperative plan Activity: WBAT, no hip precautions , no active hip abduction DVT Prophylaxis: per medicine Antibiotics: Standard postoperative antibiotics x 24 hours Implants: Keshia 47 bipolar head, 5HO insignia Anesthesia GETA Implants keshia Pathology / specimen None Pathology comment: none Estimated Blood Loss 150 Condition Stable Disposition same day Surgeon Almas Gonzalez MD Surgical Staff Operation Date: 02/25/25 15:45 <No data on this case meets the specified criteria>
--- NOTE | 2025-02-25 14:25 | PD.ORTHCON ---
HPI Consult details Reason for consultation narrative: Right hip pain History of present illness: Mayi is a pleasant 84-year-old female was a baseline ambulator with a cane with a ground-level fall this morning. I have previously seen her in the past. She is not on any blood thinners. She reports significant right hip pain and was unable to walk since this happened. She reports that she slipped on the driveway today. She denies hitting her head. Meds Home Medications and Allergies Home Medications ?Medication ?Instructions ?Recorded ?Confirmed ?Type amiodarone 200 mg tablet 200 mg PO QPM 09/04/18 02/25/25 History aspirin 81 mg tablet,delayed 81 mg PO PRN 05/20/19 02/25/25 History release (Aspir-) timolol 0.5 % eye drops 1 drp ophthalmic (eye) BID 05/20/19 02/25/25 History albuterol 90 mcg/actuation aerosol 90 mcg inhalation PRN PRN 05/09/22 02/25/25 History inhaler Shortness Of Breath Or Wheezing ferrous sulfate 325 mg (65 mg 325 mg PO DAILY 05/09/22 02/25/25 History iron) capsule,extended release ferrous sulfate 325 mg (65 mg 325 mg PO QDAY 05/09/22 02/25/25 History iron) tablet (iron) fluticasone propionate 50 1 spray intranasal HS 05/09/22 02/25/25 History mcg/actuation nasal spray,suspension loratadine 10 mg tablet 10 mg PO QDAY 05/09/22 02/25/25 History sqhgfmyn-sfrf-btou 8 mg-folic 400 1 tab PO DAILY 05/09/22 02/25/25 History mcg-K 50 mcg-lutein 300 mcg tablet (Centrum Silver Women) nitroglycerin 0.4 mg sublingual 0.4 mg buccal 1XD PRN Chest Pain 05/09/22 02/25/25 History tablet tizanidine 2 mg tablet 2 mg PO PRN PRN muscle spasticity 05/09/22 02/25/25 History vitamin E 400 unit tablet 45 mg PO QDAY 05/09/22 02/25/25 History mirabegron 25 mg tablet,extended 25 mg PO QDAY 03/02/23 02/25/25 History release 24 hr (Myrbetriq) Allergies Allergy/AdvReac Type Severity Reaction Status Date / Time Iodine and Iodide Containing AdvReac Mild Rash Verified 09/22/23 08:11 Produc Exam Vital Signs Temp Pulse Resp BP Pulse Ox O2 Del Method O2 Flow Rate 97.8 F 60 18 113/65 98 Nasal Cannula 2 02/25/25 12:00 02/25/25 12:00 02/25/25 12:00 02/25/25 12:00 02/25/25 12:00 02/25/25 12:00 02/25/25 12:00 Additional findings Additional findings: Patient is in no acute distress and is cooperative with the examination today. Breathing is nonlabored. In no respiratory distress. Patient has no paraspinal tenderness. Spinal deformity cannot be appreciated. Bilateral extremities were evaluated and demonstrates sensation intact to light touch. Palpable pedal pulses are present. No significant edema is present. Bilateral knees were examined and the patient has full strength and range of motion.. The left hip was examined. Patient was able to flex to 90 degrees, adduct to 30 degrees, abduct to 40 degrees, internally rotate to 20 degrees, and externally rotate to 20 degrees. Patient has a negative logroll. Stinchfield is negative. The patient is nontender diffusely to touch. The right hip was examined. Leg is externally rotated and shortened. Right hip x-rays demonstrate a acute displaced femoral neck fracture. Her cortices are great Results - Ortho Labs 02/25/25 08:15 02/25/25 08:15 Labs: Short CBC 02/25/25 Range/Units 08:15 WBC 10.3 (3.6-11.0) Thou/mm3 Hgb 11.5 L (12.0-16.0) g/dL Hct 33.2 L (36.0-46.0) % Plt Count 189 D (140-440) Thou/mm3 BMP 02/25/25 08:15 Sodium 134 L Potassium 4.5 Chloride 100 Carbon Dioxide 26.8 BUN 13 Creatinine 1.0 Glucose 148 H Calcium 9.5 Liver Function 02/25/25 Range/Units 08:15 Total Bilirubin 0.8 (0.3-1.2) mg/dL AST 23 (0-34) U/L ALT 22 (10-49) U/L Alkaline Phosphatase 56 (46-116) U/L Albumin 4.0 (3.4-4.8) gm/dL Assessment & Plan Problem List (1) Closed displaced fracture of right femoral neck: Status: Acute Assessment and plan: Patient is a 84-year-old female with a right displaced femoral neck fracture who lives alone. She is a baseline ambulator with a cane. The patient has been NPO. We were planning for surgery at 3:00. It appears that the case may be bumped by an emergent case and it may have to wait until tomorrow unfortunately. We discussed the risk the procedure with her and her son Serge who is a manager surgical. We discussed the risk of fracture, infection, damage to nerves and vessels, and dislocation, and medical risk of having surgery in general. We discussed hemiarthroplasty is a reasonable option giving her age. She understands like to proceed with the procedure - N.p.o. - Awaiting OR availability which appears to be limited by anesthesia availability - Plan for hip hemiarthroplasty through an anterior lateral approach
--- NOTE | 2025-02-25 20:00 | PC.NURSE ---
called Dr. Knutson regarding patient's BP 92/49, HR 53, Patient is also having 10/10 pain in her right leg. New orders received for morphine 1mg every 4 hours 7-10 pain, per Dr giraldo to give medication. IV fluids NS at 80 mL/hr started.
[2025-02-25] MEDS: MORPHINE SULF INJ 10 MG/ML VIAL IVP (20:14)
[2025-02-25] MEDS: SODIUM CHLORIDE 0.9% 1000 ML 1,000 ML 80 ML IV (20:22)
[2025-02-25] MEDS: HYDROcodone/APAP 5/325 TABLET 1 TAB PO (21:40)
--- NOTE | 2025-02-25 21:43 | EKG_ITS ---
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
[2025-02-26] VITALS (14 sets, daily range): BP systolic 92–119; BP diastolic 43–67; PULSE 47–65; RESP 14–22; TEMP 36.2–37.1; O2SAT 93–100
[2025-02-26] MEDS: MORPHINE SULF INJ 10 MG/ML VIAL IVP ×2 (05:08→09:04)
[2025-02-26 06:07] LABS: Collection Type, Urine Clean Catch
[2025-02-26 06:11] LABS: Bilirubin,Urine Negative (Negative); Blood,Urine Negative (Negative); Clarity,Urine Clear (Clear/Hazy); Color,Urine Yellow (Lt Yel-Yel); Glucose, Urine Negative (Negative); Hyaline Casts,Urine < 1 /hpf (0-1); Ketones,Urine 1+ (Negative); Leukocyte Esterase,Urine Negative (Negative); Nitrite,Urine Negative (Negative); PH,Urine 6.5 (5.0-7.0); Protein,Urine Negative (Neg - Trace); RBC,Urine < 1 /hpf (0-3); Specific Gravity,Urine 1.024 (1.001-1.035); Squamous Epithelial Cell,Urine 2 /hpf (0-5); Urobilinogen,Urine Negative mg/dL (0.0-1.0); WBC,Urine 1 /hpf (0-5)
[2025-02-26 06:38] LABS: Basophils # (Auto) 0.0 Thou/mm3 (0.0-0.2); Basophils % (Auto) 0 % (0-2.5); Eosinophils # (Auto) 0.0 Thou/mm3 (0.0-0.5); Eosinophils % (Auto) 0 % (0-10); Hematocrit 31.7 % (36.0-46.0); Hemoglobin 11.1 g/dL (12.0-16.0); Immature Granulocytes Auto 0.04 Thou/mm3 (0.00-0.00); Lymphocytes # (Auto) 1.0 Thou/mm3 (1.0-4.8); Lymphocytes % (Auto) 11 % (10-50); Mean Corpuscular HGB Conc 35.0 g/dl (31.0-37.0); Mean Corpuscular Hemoglobin 32.6 pg (25.0-35.0); Mean Corpuscular Volume 93 fL (80-100); Monocytes # (Auto) 0.6 Thou/mm3 (0.0-0.8); Monocytes % (Auto) 6 % (0-12); Neutrophils # (Auto) 7.5 Thou/mm3 (1.8-7.7); Neutrophils % (Auto) 82 % (37-80); Nucleated Red Blood Cell # 0.00 Thou/mm3 (0.00-0.00); Nucleated Red Blood Cell % 0 /100 WBC (0); Platelet Count 151 Thou/mm3 (140-440); RDW Standard Deviation 45.0 fL (36.4-46.3); Red Blood Count 3.40 Miln/mm3 (4.00-5.20); White Blood Count 9.2 Thou/mm3 (3.6-11.0)
--- NOTE | 2025-02-26 06:41 | PC.NURSE ---
called Dr. Knutson regarding patient c/o severe pain 10/10 in her right leg, patient was given morphine 1mg IVP at 0500 but patient states did not help. Also notified of patient's HR and BP being on the lower side, new order okay to give 2 mg morphine IVP x1 then change order of PRN morphine to Q3hr.
[2025-02-26 06:44] LABS: INR 1.1 (0.9-1.3); Prothrombin Time 11.9 Seconds (9.0-12.2)
[2025-02-26] MEDS: MORPHINE SULF INJ 10 MG/ML VIAL 2 MG IVP (06:49)
[2025-02-26 07:07] LABS: Alanine Aminotransferase 49 U/L (10-49); Albumin, Serum 3.6 gm/dL (3.4-4.8); Alkaline Phosphatase 56 U/L (46-116); Anion Gap 7 (7-16); Aspartate Amino Transferase 43 U/L (0-34); BUN/Creatinine Ratio 11 Ratio (12-20); Bilirubin,Direct 0.4 mg/dL (0.0-0.3); Bilirubin,Total 1.3 mg/dL (0.3-1.2); Blood Urea Nitrogen 10 mg/dL (9-23); Calcium 9.0 mg/dL (8.3-10.6); Carbon Dioxide 28.2 mMol/L (20.0-31.0); Cardiac Risk Estimate 2.7 RATIO (3.7-5.6); Chloride 100 mMol/L (98-107); Cholesterol 169 mg/dL (132-200); Creatinine (Component) 0.9 mg/dL (0.6-1.3); Estimated Creatinine Clearance 33.9 mL/min (>60); Glucose 126 mg/dL (74-106); HDL Cholesterol 63 mg/dL (40-60); LDL Cholesterol,Calculated 94 mg/dL (0-130); Magnesium 1.5 mg/dL (1.6-2.6); Osmolality,Calculated 271 (275-295); Phosphorous 2.8 mg/dL (2.4-5.1); Potassium 4.6 mMol/L (3.4-5.1); Sodium 135 mMol/L (136-145); Thyroid Stimulating Hormone 3.24 uIU/mL (0.55-4.78); Total Protein 5.8 gm/dL (5.7-8.2); Triglycerides 61 mg/dL (30-150); eGFR > 60 See Note
[2025-02-26] MEDS: SODIUM CHLORIDE 0.9% 1000 ML 1,000 ML 80 ML IV ×2 (08:55→16:06)
--- NOTE | 2025-02-26 10:07 | PD.RESPRO ---
Documentation for date of: 02/26/25 Subjective Subjective Interval history: Mayi Fox is a 84F pmhx significant for atrial fibrillation, CKDIII, COPD on 2L at home, depression, and anemia who presents with mechanical fall. She reports that earlier this morning she was gardening in the back yard when she tripped over her feet and fell. Denies frequent falls, syncope, dizziness or palpitations at the time of the fall or currently. Reports that she uses 2L of O2 at night and sometimes during the day when she feels short of breath. Denies chest pain, SOB or fever. Currently reports no pain as was given morphine in ED. 02/26/25: Overnight, HR dropped to low 50s, no interventions. Patient seen and examined at bedside. Patient is asleep on left side and endorses significant pain of Rt hip. Denies chest pain, SOB, fever, or palpitations. Upon exam, HR stable high 50s-low 60s on tele monitor. Exam Vital Signs Temp Pulse Resp BP Pulse Ox O2 Del Method O2 Flow Rate 97.2 F 56 L 18 92/47 L 93 L Nasal Cannula 2 02/26/25 08:00 02/26/25 08:00 02/26/25 08:00 02/26/25 08:00 02/26/25 08:00 02/26/25 08:00 02/26/25 08:00 Narrative Exam General: AOx3, no acute distress, laying on left side HEENT: NC/AT, mucous membranes moist, bilateral sclera anicteric Cardiovascular: regular rate and rhythm, S1/S2 present, no murmurs appreciated Pulmonary: clear to auscultation bilaterally, no rales/rhonchi/wheezes Abdominal: soft, non-tender, non-distended, no rebound/guarding, bowel sounds present Extremities: no peripheral edema, Rt leg externally rotated and shortened Skin: warm and dry, intact, no rashes Neuro CN II-XII grossly intact, no focal deficits, alert, following commands Objective Labs 02/26/25 05:46 02/26/25 05:46 Labs: Laboratory Results - last 24 hr 02/26/25 02/26/25 05:16 05:46 WBC 9.2 RBC 3.40 L Hgb 11.1 L Hct 31.7 L MCV 93 MCH 32.6 MCHC 35.0 RDW Std Deviation 45.0 Plt Count 151 D Neut % (Auto) 82 H Lymph % (Auto) 11 Potter % (Auto) 6 Eos % (Auto) 0 Baso % (Auto) 0 Neut # (Auto) 7.5 Lymph # (Auto) 1.0 Potter # (Auto) 0.6 Eos # (Auto) 0.0 Baso # (Auto) 0.0 Immature Gran # (Auto) 0.04 H Absolute Nucleated RBC 0.00 Immature Gran % 0 Nucleated RBC % 0 PT 11.9 INR 1.1 Sodium 135 L Potassium 4.6 Chloride 100 Carbon Dioxide 28.2 Anion Gap 7 BUN 10 Creatinine 0.9 Estim Creat Clear Calc 33.9 L eGFR > 60 BUN/Creatinine Ratio 11 L Glucose 126 H Calculated Osmolality 271 L Calcium 9.0 Phosphorus 2.8 Magnesium 1.5 L Total Bilirubin 1.3 H D Direct Bilirubin 0.4 H AST 43 H ALT 49 Alkaline Phosphatase 56 Total Protein 5.8 Albumin 3.6 Triglycerides 61 Cholesterol 169 LDL Cholesterol, Calc 94 HDL Cholesterol 63 H Cholesterol/HDL Ratio 2.7 L TSH 3.24 Ur Collection Type Clean Catch Urine Color Yellow Urine Clarity Clear Urine pH 6.5 Ur Specific [place] 1.024 Urine Protein Negative Urine Glucose (UA) Negative Urine Ketones 1+ A Urine Blood Negative Urine Nitrite Negative Urine Bilirubin Negative Urine Urobilinogen (Auto) Negative Ur Leukocyte Esterase Negative Urine RBC < 1 Urine WBC 1 Ur Squamous Epith Cells 2 Urine Bacteria None Hyaline Casts < 1 Quality Measures Quality Measures none Advance care planning discussed with:: patient Assessment & Plan Assessment Current Active Medications: Generic Name Dose Route Start Last Admin Trade Name Freq PRN Reason Stop Dose Admin Acetaminophen 650 mg 02/25/25 10:43 Acetaminophen 325 Mg Tablet PO 03/27/25 10:42 Q6H PRN PAIN 1-3 OR FEVER > 101 Hydrocodone Bitart/Acetaminophen 1 tab 02/25/25 09:42 02/25/25 21:40 Hydrocodone/Apap 5/325 Tablet PO 03/02/25 09:41 1 tab Q4HR PRN Administration PAIN SCALE 4-6 (Moderate Sodium Chloride 1,000 mls @ 80 mls/hr 02/25/25 19:55 02/26/25 08:55 Ns IV 03/27/25 19:54 80 mls/hr .[id number] SANDOR Administration Morphine Sulfate 1 mg 02/26/25 06:40 02/26/25 09:04 Morphine Sulf Inj 10 Mg/Ml Vial IVP 03/02/25 19:52 1 mg Q3HR PRN Administration PAIN SCALE 7-10 (Severe Ondansetron HCl 4 mg 02/25/25 10:43 02/25/25 20:21 Ondansetron Inj 2 Mg/Ml Inj 2 Ml IV 03/27/25 10:42 4 mg Q6H PRN Administration NAUSEA OR VOMITING Protocol Sennosides 2 tab 02/25/25 10:43 Senna Tablet PO 03/27/25 10:42 BID PRN CONSTIPATION Protocol Plan Mayi Fox is a 84F pmhx significant for atrial fibrillation, CKDIII, COPD on 2L at home, depression, and anemia who presents with fall, admitted for Rt femoral neck fracture, Dr. Gonzalez consulted for surgery. #Displaced right femoral neck fracture Patient sustained mechanical ground level fall while gardening, denies syncope or headstrike Hip x-ray shows acute displaced fracture of Rt femoral neck. Femur x-ray shows shaft of femur intact, acute displaced Rt femoral neck fracture. Rt knee X-ray shows a limited study w no acute fracture. CXR done, but report contained CT head findings which was neg for acute hemorrhage. Plan: -Dr. Gonzalez consulted for surgery -NPO -Pain scale regimen: norco 5 q4h prn, morphine 1 q3h prn -Zofran prn for nausea -Post op PT #Atrial Fibrillation, rate controlled, stable Patient is unaware she has atrial fibrillation, but upon chart review, she is taking ASA and amiodarone and follows Dr. Quinones outpatient. Denies palpitations. At bedside, is in sinus rhythm with HR high 50s-low 60s. Plan: -Hold home ASA 81 mg and amiodarone 200 mg for now -CTM -Consider consulting cardiology Dr. Quinones if HR is persistently low or patient goes into a-fib #Normocytic anemia, stable Admission Hgb 11.5 MCV 94, but Hgb 12.5 01/2025. Not taking prescribed iron supplements at home. Plan: -CTM and manage outpatient #CKD Stage IIIa, stable Admission GFR 55 Cr 1.0 at baseline. Plan: -CTM, trend -Avoid nephrotoxic medication -Renally dose medication #Urinary urge incontinence #Osteoarthritis Chronic medical conditions nonpertinent to the following presentation Plan: -Hold solifenacin 10 mg QD and topical diclofenac for now Hospital management: Diet: NPO Bowel: Senna GI prophylaxis: none for now DVT prophylaxis: none iso surgery Disposition: med surg for Rt femoral fracture surgery CODE STATUS: Full code Plan of care discussed with attending Dr. Knutson, and PGY-2 Dr. Del Toro. Shana Vazquez, DO PGY-1 Internal Medicine Attending Provider Attestation/Addendum Patient seen and examined with resident physician Dr. Vazquez. Note reviewed, agree with findings and recommendations. Status post fall-right femoral fracture and fixation with Dr. Gonzalez. History of A-fib although currently in normal sinus rhythm. Patient noted to have bradycardia. Off amiodarone. Will consult Dr. Hartman. Will need anticoagulation-will discuss with cardiology(aspirin versus Eliquis)
--- NOTE | 2025-02-26 12:30 | XR_ITS ---
Examination: AP right hip 2 views TECHNIQUE: AP right hip 2 views Date and time: February 26, 2025 1217 hours INDICATIONS: Postop hip replacement, displaced hip fracture August 28, 2024 FINDINGS: Right hip bipolar hemiarthroplasty. Satisfactory alignment IMPRESSION: Right hip bipolar hemiarthroplasty with satisfactory alignment
--- NOTE | 2025-02-26 13:24 | XR_ITS ---
Examination: AP pelvis single view Technique one AP portable supine pelvis single view Date and time: February 26, 2025 1359 hours INDICATIONS: Postop right hip replacement FINDINGS: Right hip bipolar hemiarthroplasty. Satisfactory alignment Left hip bones of the pelvis intact IMPRESSION: Right hip bipolar hemiarthroplasty with satisfactory alignment
[2025-02-26] MEDS: ONDANSETRON INJ 2 MG/ML INJ 2 ML 4 MG IVP (13:31)
--- NOTE | 2025-02-26 14:10 | SUR.PHASEI ---
1410: Pt. AAOx4, vitals stable, breathing unlabored, no complaint of pain or nausea, dressing to left hip CDI, no active bleed noted, bilateral dorsalis pedis pulses strong, cap refill to bilateral feet less than 3 seconds, pt. able to move bilateral legs, report given to Shelby RN prior to transfer to room.
--- NOTE | 2025-02-26 15:01 | PC.SS ---
Mayi Elkins is a 84-year-old female admitted to unit for Femoral Fracture. MEDICAL INSURANCE CLERK made contact with the patient, in the attempt to complete initial. Role and reason for the contact was explained to the patient. Demographic information was verified with the patient. Patient was able to verify her home address, phone number and contact information. Pt. provided primary point of contact sonJayson ph: [phone] and secondary contact sister Judit Alcantara [phone]. Pt. reports she lives at home with son Myles Castrejon. Pt. reports she would like to d/c to SNF, pt. is aware she will require insurance authorization, pt. would like placement locally. Pt. reports that prior to hospitalization she was able to ambulant on her own. Pt. has the following medical equipment at home: walker and Oxygen. Pt. stated her pharmacy is [facility] on [address] and her PCP is Dr. Knutson with an upcoming appointment on 02/27. Primary contact: Jayson Castrejon [phone] PCP: DR. Knutson d/c: SNF
--- NOTE | 2025-02-26 15:55 | PC.SS ---
Addendum entered by ROSA Lerma 02/26/25 16:33: PASRR completed. Spoke with resident Dr Solomon to make aware of need for PT orders for insurance authorization for SNF. Addendum entered by ROSA Lerma 02/26/25 16:28: SS update: notified Dr. Gonzalez that patient will need PT orders as she will require insurance authorization for SNF. Original Note: SS follow up: SNF referral sent via [place]. Pending responses.
[2025-02-26] MEDS: Magnesium Sulfate 4 GM Ivpb 4 GM/50 ML BAG IV (16:06)
--- NOTE | 2025-02-26 17:22 | ESCONSULT_ITS ---
<Statement entered by Juan Carlos Quinones MD - 02/27/25 14:45> The patient is examined by me evaluate the patient as well well-known to me has longstanding history of multiple medical problems history of paroxysmal A-fib but not had any A-fib for several years on amiodarone was not given anticoagulation since maintain sinus rhythm bleeding risk was high. Patient now has a fracture of the hip. Doing fairly well negative cholangiogram. Question of anticoagulation patient will not require lengthy long-term anticoagulation since the low risk for stroke less than 3% [id number] was 3 also has high fall risk. We can proceed with a low-dose Eliquis to prevent DVT for full 2 weeks. Evaluate the patient with resident physician Dr. sunil Rosado agree with treatment plan recommendation as documented. HPI Data of Consult Requesting Physician: Almas Gonzalez MD Admitting Provider: Katie Cedeño MD Attending Provider: Almas Gonzalez MD Primary Care Provider: Adriana Knutson MD Consult Narrative Reason for consult: For anticoagulation History of present illness: A 84-year-old female with significant past medical history of atrial fibrillation not on anticoagulation, CKD, chronic lung disease on 2 L oxygen, depression, anemia presented to the hospital with chief complaints of fall. Per patient, she is doing her routine back yard work early in the morning while taking breaks in between. After standing for a while she felt that her feet is hurting and suddenly they get away following which she had a fall on her right side following which she was brought to the hospital. Denies chest pain, palpitations, syncopal episode, orthopnea, PND, pedal edema. Fall seems to be most likely mechanical rather than cardiac causes. Vitals at the time of admission are stable. Hip/pelvis x-ray done at the time showed acute displaced fracture of right femoral neck. Dr. Gonzalez was consulted and patient underwent right hip hemiarthroplasty. Patient tolerated the procedure well. The patient had history of atrial fibrillation, not on any anticoagulation and appears to be in normal sinus rhythm from chart review since 2018. No history of CAD/CABG/family history of CAD. Cardiology is consulted in view of starting of anticoagulation. Denies smoking, alcohol, other illicit drug abuse. cc:: cc: Almas Gonzalez MD Review of Systems Review of Systems Systems Reviewed: All systems reviewed, normal except as documented Past Medical History Past Medical History NEUROLOGIC: Negative Neurological Disorders, Cerebrovascular Accident, Transient Ischemic Attacks (TIA), Dementia, Alzheimer's Disease, Parkinson's Disease, Brain Tumor, Meningitis, Seizures, Epilepsy, Multiple Sclerosis, Cerebral Palsy, Amyotrophic Lateral Sclerosis (ALS/Sarah Gehrig's), Guillain-[place] Syndrome, Spina Bifida, Paralysis, Peripheral Neuropathy, Perez's Palsy, Subdural Hematoma, Migraine, Head Trauma, Spinal Cord Injury or Traumatic Brain Injury CARDIAC: Positive Cardiac Disorders, Angina, Coronary Artery Disease, Atherosclerotic Heart Disease and Edema; Negative Myocardial Infarction, Cardiac Arrhythmia, Atrial Fibrillation, Heart Murmur, Peripheral Vascular Disease, Hypercholesterolemia, Aneurysm, Congestive Heart Failure, Congenital Heart Disease, Valvular Heart Disease, Rheumatic Fever, Cardiomyopathy, Pericarditis, Cellulitis, Deep Vein Thrombosis, Hypertension, Hypotension or Varicose Veins RESPIRATORY: Positive Chronic Obstructive Pulmonary Disease (COPD); Negative Asthma, Bronchitis, Emphysema, Pneumonia, Pulmonary Fibrosis, Cystic Fibrosis, Tuberculosis, Pulmonary Embolism, Pulmonary Edema or Sleep Apnea GASTROINTESTINAL: Positive Gastrointestinal Disorders and Gall Bladder Disease (CHOLECYSTECTOMY); Negative Hepatitis, Cirrhosis, Pancreatitis, Celiac Disease, Gastrointestinal Bleed, Esophageal Varices, Munoz's Esophagus, Colitis, Ulcerative Colitis, Diverticulitis, Diverticulosis, Ulcer, Colorectal Cancer, Irritable Bowel, Crohn's Disease, Obstructive Bowel, Hiatal Hernia, Hemorrhoids, Gastroesophageal Reflux Disease or Obesity GENITOURINARY: Negative Genitourinary Disorders, Renal Disease, Kidney Stones, Polycystic Kidney Disease, Neurogenic Bladder, Inguinal Hernia, Dialysis or Prostate Cancer REPRODUCTIVE: Positive Previous Pregnancies (); Negative Breast Cancer, Endometriosis, Genital Herpes, Gonorrhea, Pelvic Inflammatory Disease, Syphilis, Testicular Cancer or Uterine Prolapse MUSCULOSKELETAL: Positive Musculoskeletal Disorders, Arthritis and Fractures (L ARM); Negative Muscular Dystrophy, Myasthenia Gravis, Marfan's Syndrome, Bone Cancer, Rheumatoid Arthritis, Osteoporosis, Degenerative Disk Disease, Gout, Scoliosis, Carpal Tunnel Syndrome, Fibromyalgia, Degenerative Joint Disease, Osteomyelitis or Poliovirus ENT: Positive Glaucoma; Negative Cataracts, Blind, Retinal Detachment, Macular Degeneration, Ear Infection, Deafness, Head Trauma or Eye Prosthesis ENDOCRINE: Negative Endocrine Disorders, Diabetes Mellitus Type 1, Diabetes Mellitus Type 2, Hypoglycemia, Linton's Syndrome, [place]'s Disease, Hyperthyroidism, Hypothyroidism, Parathyroid Disease, Pituitary Disease, Systemic Lupus Erythematosus, Syndrome of Inappropriate Antidiuretic Hormone (SIADH), Adrenal Disease or Graves' Disease HEMATOLOGIC: Negative Blood Disorders, Anemia, Leukemia, Hemophilia, Thalassemia or Sickle Cell Disease PSYCHO/SOCIAL: Negative Psychiatric Problems, Schizophrenia, Recreational Drug Use, Bipolar Disorder, Depression, Anxiety, Behavior Problems, Self-Mutilation, Attention Deficit Disorder, Attention Deficit Hyperactivity Disorder, Depression, Post Traumatic Stress Disorder or Eating Disorder OTHER HISTORY: Positive Hospitalization, Shingles, Falls, Chicken Pox and Measles; Negative Autoimmune Disease, Down Syndrome, Autism, Developmental Delay, Blood Transfusions, Blood Transfusion Reaction, Anesthesia Reactions, Organ Transplant, Chemotherapy, Radiation Therapy, Hyperbaric Therapy, MRSA, Vancomycin-Resistant Enterococci, Human Immunodeficiency Virus (HIV), Mumps, Rubella (Kazakh Measles), Pertussis, Clostridium Difficile, Cancer, Breast Cancer, Cervical Cancer, Colorectal Cancer, Lung Cancer, Ovarian Cancer, Prostate Cancer or Testicular Cancer Family History FAMILY HISTORY: Positive Family Respiratory Disorders (FATHER), Family Cardiac Disorders (SISTER), Family Gastrointestinal Problems and Family Cancer; Negative Family Psychiatric Problems, Family Surgery or Family Anesthesia Reaction Surgical History SURGICAL: Positive Cardiac Catheterization, Angiogram, Tonsillectomy, Abdominal Surgery and Hysterectomy; Negative Cardiac Surgery, Open Heart Surgery, Coronary Artery Bypass Graft, Valve Replacement, Vascular Surgery, Coronary Stent, Pacemaker, Auto Implanted Cardiovert Defib, Carotid Endarterectomy, Endocrine Surgery, Thyroidectomy, Ear Surgery, Tympanostomy Tube, Eye Surgery, Nose Surgery, Oral Surgery, Adenoidectomy, Cochlear Implant, Corneal Transplant, Throat Surgery, Tracheostomy, Gastric Bypass Surgery, Gastrostomy, Bowel Surgery, Nephrectomy, Transurethral Resection, Joint Replacement, Amputation, Open Reduction Internal Fixation, Arthroscopy, Neurologic Surgery, Brain Shunt, Mastectomy, Lumpectomy, Tubal Ligation, Section or Organ Transplant Social History SMOKING STATUS: Never smoker Exam Vital Signs Temp Pulse Resp BP Pulse Ox O2 Del Method O2 Flow Rate 97.4 F 65 18 92/45 L 93 L Room Air 3 02/26/25 16:00 02/26/25 16:00 02/26/25 16:00 02/26/25 16:00 02/26/25 16:02/26/25 16:02/26/25 14:00 Narrative Exam General: Awake. appears ill nourished HEENT: Normocephalic, atraumatic, mucous membranes moist. Heart: Regular rate and rhythm, no murmurs. mild bradycardia noted, 55 - 60bpm Lungs: Clear to auscultation with no wheezing or crackles. Abdomen: Soft, nondistended, nontender, positive bowel sounds. ?No guarding or rebound tenderness. Neurologic: Alert and oriented x3, no gross neurological deficit, and patient able to move all 4 extremities. Extremities: No edema. noted limited movements at the site of surgery Skin: No rash or ecchymoses. Results Labs 02/27/25 05:36 02/27/25 05:36 Labs: Short CBC 02/26/25 Range/Units 05:46 WBC 9.2 (3.6-11.0) Thou/mm3 Hgb 11.1 L (12.0-16.0) g/dL Hct 31.7 L (36.0-46.0) % Plt Count 151 D (140-440) Thou/mm3 BMP 02/26/25 05:46 Sodium 135 L Potassium 4.6 Chloride 100 Carbon Dioxide 28.2 BUN 10 Creatinine 0.9 Glucose 126 H Calcium 9.0 Liver Function 02/26/25 Range/Units 05:46 Total Bilirubin 1.3 H D (0.3-1.2) mg/dL Direct Bilirubin 0.4 H (0.0-0.3) mg/dL AST 43 H (0-34) U/L ALT 49 (10-49) U/L Alkaline Phosphatase 56 (46-116) U/L Albumin 3.6 (3.4-4.8) gm/dL Urine 02/26/25 Range/Units 05:16 Urine Color Yellow (Lt Yel-Yel) Urine Clarity Clear (Clear/Hazy) Urine pH 6.5 (5.0-7.0) Ur Specific [place] 1.024 (1.001-1.035) Urine Protein Negative (Neg - Trace) Urine Glucose (UA) Negative (Negative) Quality Measures Quality Measures none Advance care planning discussed with:: patient Medications Home Medications and Allergies Home Medications ?Medication ?Instructions ?Recorded ?Confirmed ?Type amiodarone 200 mg tablet 200 mg PO QPM 09/04/1802/25 History aspirin 81 mg tablet,delayed 81 mg PO PRN 05/20/19 History release (Aspir-) timolol 0.5 % eye drops 1 drp ophthalmic (eye) BID 1 02/25/25 History albuterol 90 mcg/actuation aerosol 90 mcg inhalation P RN PRN 05/09/22 02/25/25 History inhaler Shortness Of Breath Or Wheez ing ferrous sulfate 325 mg (65 mg 325 mg PO DAILY 05/09/22 02/25/25 History iron) capsule,extended release ferrous sulfate 325 mg (65 mg 325 mg PO QDAY 05/09/22 02/25/25 History iron) tablet (iron) fluticasone propionate 50 1 spray intranasal HS 02/25/25 History mcg/actuation nasal spray,suspension loratadine 10 mg tablet 10 mg PO QDAY 05/09/2202/25 History hvxliggd-iorb-orlu 8 mg-folic 400 1 tab PO DAILY 05/0902/25/25 History mcg-K 50 mcg-lutein 300 mcg tablet (Centrum Silver Women) nitroglycerin 0.4 mg sublingual 0.4 mg buccal 1XD PRN Chest Pain 05/09/22 02/25/25 History tablet tizanidine 2 mg tablet 2 mg PO PRN PRN muscle spast icity 05/09/22 02/25/25 History vitamin E 400 unit tablet 45 mg PO QDAY 05/09/2202/25 History mirabegron 25 mg tablet,extended 25 mg PO QDAY 3 02/25/25 History release 24 hr (Myrbetriq) Allergies Allergy/AdvReac Type Severity Reaction Status Date / Time Iodine and Iodide Containing AdvReac Mild Rash Verified 09/22/23 08:11 Produc Visit Medications Acetaminophen (Acetaminophen 325 Mg Tablet) 650 mg PO Q6H PRN PRN Reason: PAIN 1-3 OR FEVER > 101 Stop: 03/27/25 10:42 Hydrocodone Bitart/Acetaminophen (Hydrocodone/Apap 5/325 Tablet) 1 tab PO Q4HR PRN PRN Reason: PAIN SCALE 4-6 (Moderate Stop: 03/02/25 09:41 Last Admin: 02/25/25 21:40 Dose: 1 tab Albuterol (Albuterol Inh 8 Gm) 90 puff INH Q4H PRN PRN Reason: Shortness Of Breath Or Wheezing Stop: 03/28/25 15:02 Amiodarone HCl (Amiodarone Hcl 200 Mg Tablet) 200 mg PO HS [facility] Stop: 03/28/25 20:59 Aspirin (Aspirin Ec 81 Mg Tabec) 81 mg PO DAILY [facility] Stop: 03/29/25 08:59 Ferrous Sulfate (Ferrous Sulf 325 Mg Tablet) 325 mg PO DAILY [facility] Stop: 03/29/25 08:59 Sodium Chloride (Ns) 1,000 mls @ 80 mls/hr IV .[id number] SANDOR Stop: 03/27/25 19:54 Last Admin: 02/26/25 16:06 Dose: 80 mls/hr Magnesium Sulfate (Magnesium Sulfate Ivpb) 4 gm in 50 mls @ 12.5 mls/hr IV X1 ONE Stop: 02/26/25 19:05 Last Admin: 02/26/25 16:06 Dose: 12.5 mls/hr Loratadine (Loratadine 10 Mg Tablet) 10 mg PO QDAY [facility] Stop: 03/29/25 08:59 Morphine Sulfate (Morphine Sulf Inj 10 Mg/Ml Vial) 1 mg IVP Q3HR PRN PRN Reason: PAIN SCALE 7-10 (Severe Stop: 03/02/25 19:52 Last Admin: 02/26/25 09:04 Dose: 1 mg Multivitamins (Multivitamins Tablet) 1 tab PO DAILY [facility] Stop: 03/29/25 08:59 Ondansetron HCl (Ondansetron Inj 2 Mg/Ml Inj 2 Ml) 4 mg IV Q6H PRN; Protocol PRN Reason: NAUSEA OR VOMITING Stop: 03/27/25 10:42 Last Admin: 02/25/25 20:21 Dose: 4 mg Sennosides (Senna Tablet) 2 tab PO BID PRN; Protocol PRN Reason: CONSTIPATION Stop: 03/27/25 10:42 Tizanidine HCl (Tizanidine Hcl 2 Mg Tablet) 2 mg PO QDAY PRN PRN Reason: MUSCLE SPASMS Stop: 03/28/25 15:02 Discontinued Medications Fentanyl Citrate (Fentanyl Cit Inj 50 Mcg/Ml Amp 2ml) 25 mcg IVP Q5M PRN PRN Reason: PAIN SCALE 1-3 (mild Stop: 02/26/25 13:06 Hydromorphone HCl (Hydromorphone Inj 2 Mg/Ml Vial) 0.2 mg IVP Q5M PRN PRN Reason: PAIN 1-6 (mild-mod Stop: 02/26/25 13:06 Morphine Sulfate (Morphine Sulf Inj 10 Mg/Ml Vial) 4 mg IVP X1 ONE Stop: 02/25/25 07:36 Last Admin: 02/25/25 07:59 Dose: 4 mg Morphine Sulfate (Morphine Sulf Inj 10 Mg/Ml Vial) 4 mg IVP Q6HR PRN PRN Reason: PAIN SCALE 4-10(Mod-Sev Stop: 03/02/25 10:44 Morphine Sulfate (Morphine Sulf Inj 10 Mg/Ml Vial) 4 mg IVP Q6HR PRN PRN Reason: PAIN SCALE 7-10 severe Stop: 03/02/25 10:44 Last Admin: 02/25/25 11:15 Dose: 4 mg Morphine Sulfate (Morphine Sulf Inj 10 Mg/Ml Vial) 1 mg IVP Q4HR PRN PRN Reason: PAIN SCALE 7-10 (Severe Stop: 03/02/25 19:52 Last Admin: 02/26/25 05:08 Dose: 1 mg Morphine Sulfate (Morphine Sulf Inj 10 Mg/Ml Vial) 2 mg IVP X1 ONE Stop: 02/26/25 06:40 Last Admin: 02/26/25 06:49 Dose: 2 mg Morphine Sulfate (Morphine Sulf Inj 10 Mg/Ml Vial) 3 mg IVP Q5M PRN PRN Reason: PAIN SCALE 4-6 (Moderate Stop: 02/26/25 13:06 Ondansetron HCl (Ondansetron Inj 2 Mg/Ml Inj 2 Ml) 4 mg IVP X1 ONE Stop: 02/26/25 11:06 Last Admin: 02/26/25 13:31 Dose: 4 mg Assessment & Plan Plan A 84-year-old female with significant past medical history of atrial fibrillation not on anticoagulation, CKD, chronic lung disease on 2 L oxygen, depression, anemia presented to the hospital with chief complaints of fall, admitted for acute displaced fracture of right hip followed by right hip hemiarthroplasty # History of paroxysmal atrial fibrillation, currently in normal sinus rhythm # Bradycardia # Status post right hip hemiarthroplasty - Patient had history of atrial fibrillation and was on amiodarone 200 Mg p.o. at bedtime but not on any anticoagulation - Per chart review, EKG since 2018 did not show any further episodes of atrial fibrillation. Also found to have mild bradycardia with heart rate around 55 to 60 bpm since then - Does not remember exact duration since she had A-fib, denies history of CAD/PCI/CABG, heart failure, TIA/stroke - [id number] or is 3 Plan - Recommended to continue amiodarone 200 Mg p.o. at bedtime - Though patient had [id number] or of 3, no anticoagulation is needed for atrial fibrillation as patient did not have any history of TIA/stroke despite not being on anticoagulation. - As patient had fall risk now, it is better not to start any anticoagulation for atrial fibrillation - For DVT prophylaxis patient can be started on either Eliquis 2.5 Mg twice daily for 10 days or aspirin 81 Mg twice daily for 10 days - Patient does not have any symptoms of bradycardia like dizziness, skipped beats, hypotension - no need of any pacemaker for now #Displaced right femoral neck fracture #Normocytic anemia, stable #CKD Stage IIIa, stable #Urinary urge incontinence #Osteoarthritis -Rest of the medical conditions to be treated as per primary team Thank you for allowing us to involved in the care of the patient Patient plan of care was discussed with the wire machine cutter, Dr. Joni Willis, PGY2
[2025-02-27] VITALS (10 sets, daily range): BP systolic 94–130; BP diastolic 55–69; PULSE 51–99; RESP 15–22; TEMP 36.1–36.8; O2SAT 90–100; BMI 22.6
[2025-02-27 06:35] LABS: Basophils # (Auto) 0.0 Thou/mm3 (0.0-0.2); Basophils % (Auto) 0 % (0-2.5); Eosinophils # (Auto) 0.0 Thou/mm3 (0.0-0.5); Eosinophils % (Auto) 0 % (0-10); Hematocrit 28.3 % (36.0-46.0); Hemoglobin 10.1 g/dL (12.0-16.0); Immature Granulocytes Auto 0.07 Thou/mm3 (0.00-0.00); Lymphocytes # (Auto) 0.6 Thou/mm3 (1.0-4.8); Lymphocytes % (Auto) 5 % (10-50); Mean Corpuscular HGB Conc 35.7 g/dl (31.0-37.0); Mean Corpuscular Hemoglobin 33.0 pg (25.0-35.0); Mean Corpuscular Volume 93 fL (80-100); Monocytes # (Auto) 0.7 Thou/mm3 (0.0-0.8); Monocytes % (Auto) 5 % (0-12); Neutrophils # (Auto) 12.1 Thou/mm3 (1.8-7.7); Neutrophils % (Auto) 90 % (37-80); Nucleated Red Blood Cell # 0.00 Thou/mm3 (0.00-0.00); Nucleated Red Blood Cell % 0 /100 WBC (0); Platelet Count 106 Thou/mm3 (140-440); RDW Standard Deviation 43.8 fL (36.4-46.3); Red Blood Count 3.06 Miln/mm3 (4.00-5.20); White Blood Count 13.5 Thou/mm3 (3.6-11.0)
[2025-02-27] MEDS: MORPHINE SULF INJ 10 MG/ML VIAL IVP ×2 (06:46→17:14)
[2025-02-27 07:04] LABS: Anion Gap 11 (7-16); BUN/Creatinine Ratio 14 Ratio (12-20); Blood Urea Nitrogen 13 mg/dL (9-23); Calcium 9.0 mg/dL (8.3-10.6); Carbon Dioxide 21.5 mMol/L (20.0-31.0); Chloride 102 mMol/L (98-107); Creatinine (Component) 0.9 mg/dL (0.6-1.3); Estimated Creatinine Clearance 33.9 mL/min (>60); Glucose 155 mg/dL (74-106); Osmolality,Calculated 271 (275-295); Potassium 5.0 mMol/L (3.4-5.1); Sodium 134 mMol/L (136-145); eGFR > 60 See Note
[2025-02-27] MEDS: SODIUM CHLORIDE 0.9% 1000 ML 1,000 ML 80 ML IV (08:38)
[2025-02-27] MEDS: ASPIRIN EC 81 MG TABEC PO (08:38)
[2025-02-27] MEDS: FERROUS SULF 325 MG TABLET PO (08:38)
[2025-02-27] MEDS: MULTIVITAMINS TABLET 1 TAB PO (08:38)
[2025-02-27] MEDS: HYDROcodone/APAP 5/325 TABLET 1 TAB PO (09:11)
--- NOTE | 2025-02-27 10:39 | PC.SS ---
Addendum entered by Jael Walters 02/27/25 14:55: SS follow up note; SS contacted DR. Virgen and she informed SS that patient is pending Surgery clearance and patient will possibly discharge tomorrow to [facility]. Addendum entered by Jael Walters 02/27/25 14:50: SS follow up note; SS was contacted by Mirlande from [facility] and she informed SS that auth was approved for patient to discharge to [facility]. Addendum entered by Jael Walters 02/27/25 13:07: SS follow up note; SS sent PT note to [facility]. SS contacted Mirlande from [facility] [place]. SS left voicemail with contact number. Addendum entered by Jael Waltres 02/27/25 11:51: SS follow up note: SS sent Clinicals to [facility], will sent PT note once available. Original Note: SS follow up note; SS met with patient at bedside to discuss SNF choices, patient would like to discharge to [facility]. SS contacted Kelley from [facility] and she informed SS that they are able to accept patient. SS will send PT notes to [facility] once available for auth.
--- NOTE | 2025-02-27 11:50 | PD.RESPRO ---
Documentation for date of: 02/27/25 Subjective Subjective Interval history: Mayi Fox is a 84F pmhx significant for atrial fibrillation, CKDIII, COPD on 2L at home, depression, and anemia who presents with mechanical fall. She reports that earlier this morning she was gardening in the back yard when she tripped over her feet and fell. Denies frequent falls, syncope, dizziness or palpitations at the time of the fall or currently. Reports that she uses 2L of O2 at night and sometimes during the day when she feels short of breath. Denies chest pain, SOB or fever. Currently reports no pain as was given morphine in ED. 02/26/25: Overnight, HR dropped to low 50s, no interventions. Patient seen and examined at bedside. Patient is asleep on left side and endorses significant pain of Rt hip. Denies chest pain, SOB, fever, or palpitations. Upon exam, HR stable high 50s-low 60s on tele monitor. 02/27/25: No acute overnight events. Patient seen and examined at bedside. Hip replacement surgery yesterday afternoon. States that Rt hip is painful and stiff. Denies chest pain, SOB, fever, or palpitations. BP stable. HR stable low 50s-70. Exam Vital Signs Temp Pulse Resp BP Pulse Ox O2 Del Method O2 Flow Rate 96.9 F 70 18 130/60 97 Nasal Cannula 2 02/27/25 08:00 02/27/25 08:00 02/27/25 08:00 02/27/25 08:00 02/27/25 08:00 02/27/25 08:00 02/27/25 08:00 Narrative Exam General: AOx3, no acute distress, laying on left side HEENT: NC/AT, mucous membranes moist, bilateral sclera anicteric Cardiovascular: regular rate and rhythm, S1/S2 present, no murmurs appreciated Pulmonary: clear to auscultation bilaterally, no rales/rhonchi/wheezes Abdominal: soft, non-tender, non-distended, no rebound/guarding, bowel sounds present Extremities: no peripheral edema, Rt hip surgical site dressed Skin: warm and dry, intact, no rashes Neuro CN II-XII grossly intact, no focal deficits, alert, following commands Objective Labs 02/27/25 05:36 02/27/25 05:36 Labs: Laboratory Results - last 24 hr 02/27/25 05:36 WBC 13.5 H D RBC 3.06 L Hgb 10.1 L Hct 28.3 L MCV 93 MCH 33.0 MCHC 35.7 RDW Std Deviation 43.8 Plt Count 106 L D Neut % (Auto) 90 H Lymph % (Auto) 5 L [place] % (Auto) 5 Eos % (Auto) 0 Baso % (Auto) 0 Neut # (Auto) 12.1 H Lymph # (Auto) 0.6 L [place] # (Auto) 0.7 Eos # (Auto) 0.0 Baso # (Auto) 0.0 Immature Gran # (Auto) 0.07 H Absolute Nucleated RBC 0.00 Immature Gran % 1 H Nucleated RBC % 0 Sodium 134 L Potassium 5.0 Chloride 102 Carbon Dioxide 21.5 Anion Gap 11 BUN 13 Creatinine 0.9 Estim Creat Clear Calc 33.9 L eGFR > 60 BUN/Creatinine Ratio 14 Glucose 155 H Calculated Osmolality 271 L Calcium 9.0 Quality Measures Quality Measures none Advance care planning discussed with:: patient Assessment & Plan Assessment Current Active Medications: Generic Name Dose Route Start Last Admin Trade Name Freq PRN Reason Stop Dose Admin Acetaminophen 650 mg 02/25/25 10:43 Acetaminophen 325 Mg Tablet PO 03/27/25 10:42 Q6H PRN PAIN 1-3 OR FEVER > 101 Hydrocodone Bitart/Acetaminophen 1 tab 02/25/25 09:42 02/27/25 09:11 Hydrocodone/Apap 5/325 Tablet PO 03/02/25 09:41 1 tab Q4HR PRN Administration PAIN SCALE 4-6 (Moderate Albuterol 90 puff 02/26/25 15:03 Albuterol Inh 8 Gm INH 03/28/25 15:02 Q4H PRN Shortness Of Breath Or Wheezing Amiodarone HCl 200 mg 02/26/25 21:00 02/26/25 20:28 Amiodarone Hcl 200 Mg Tablet PO 03/28/25 20:59 Not Given HS SANDOR Aspirin 81 mg 02/27/25 09:00 02/27/25 08:38 Aspirin Ec 81 Mg Tabec PO 03/29/25 08:59 81 mg DAILY SANDOR Administration Ferrous Sulfate 325 mg 02/27/25 09:00 02/27/25 08:38 Ferrous Sulf 325 Mg Tablet PO 03/29/25 08:59 325 mg DAILY SANDOR Administration Sodium Chloride 1,000 mls @ 80 mls/hr 02/25/25 19:55 02/27/25 08:38 Ns IV 03/27/25 19:54 80 mls/hr .[id number] SANDOR Administration Loratadine 10 mg 02/27/25 09:00 02/27/25 08:38 Loratadine 10 Mg Tablet PO 03/29/25 08:59 10 mg QDAY SANDOR Administration Morphine Sulfate 1 mg 02/26/25 06:40 02/27/25 06:46 Morphine Sulf Inj 10 Mg/Ml Vial IVP 03/02/25 19:52 1 mg Q3HR PRN Administration PAIN SCALE 7-10 (Severe Multivitamins 1 tab 02/27/25 09:00 02/27/25 08:38 Multivitamins Tablet PO 03/29/25 08:59 1 tab DAILY SANDOR Administration Ondansetron HCl 4 mg 02/25/25 10:43 02/25/25 20:21 Ondansetron Inj 2 Mg/Ml Inj 2 Ml IV 03/27/25 10:42 4 mg Q6H PRN Administration NAUSEA OR VOMITING Protocol Sennosides 2 tab 02/25/25 10:43 Senna Tablet PO 03/27/25 10:42 BID PRN CONSTIPATION Protocol Tizanidine HCl 2 mg 02/26/25 15:03 Tizanidine Hcl 2 Mg Tablet PO 03/28/25 15:02 QDAY PRN MUSCLE SPASMS Protocol Plan Mayi Fox is a 84F pmhx significant for atrial fibrillation, CKDIII, COPD on 2L at home, depression, and anemia who presents with fall, admitted for Rt femoral neck fracture operated by Dr. Gonzalez 02/26. #Displaced right femoral neck fracture s/p hip hemiarthroplasty 02/26/25 Patient sustained mechanical ground level fall while gardening, denies syncope or headstrike Hip x-ray shows acute displaced fracture of Rt femoral neck. Femur x-ray shows shaft of femur intact, acute displaced Rt femoral neck fracture. Rt knee X-ray shows a limited study w no acute fracture. CXR done, but report contained CT head findings which was neg for acute hemorrhage. Plan: -Pain scale regimen: norco 5 q4h prn, morphine 1 q3h prn -ASA 81 mg QD started for post surgery thromboprophylaxis -Zofran prn for nausea -Post op PT ordered #Atrial Fibrillation, rate controlled, stable Patient is unaware she has atrial fibrillation, but upon chart review, she is taking ASA and amiodarone and follows Dr. Quinones outpatient. Denies palpitations. At bedside, is in sinus rhythm with HR high 50s-low 60s. Plan: -on amiodarone 200 mg po qhs -CTM -Cardiology Dr. Quinones consulted recs appreciated: continue amiodarone 200 mg qhs, for DVT prophylaxis either Eliquis 2.5 mg BID for 10 days or ASA 81 mg BID for 10 days #Normocytic anemia, stable Admission Hgb 11.5 MCV 94, but Hgb 12.5 01/2025. Not taking prescribed iron supplements at home. Plan: -CTM and manage outpatient #CKD Stage IIIa, stable Admission GFR 55 Cr 1.0 at baseline. Plan: -CTM, trend -Avoid nephrotoxic medication -Renally dose medication #Urinary urge incontinence #Osteoarthritis Chronic medical conditions nonpertinent to the following presentation Plan: -Hold solifenacin 10 mg QD and topical diclofenac for now Hospital management: Diet: regular Bowel: Senna GI prophylaxis: none for now DVT prophylaxis: none Disposition: med surg for Rt femoral fracture surgery CODE STATUS: Full code Plan of care discussed with attending Dr. Knutson. Shana Vazquez DO PGY-1 Internal Medicine Attending Provider Attestation/Addendum Patient seen and examined with resident physician Dr. Vazquez. Note reviewed, agree with findings and recommendations. Status post fall-right femoral fracture and fixation with Dr. Gonzalez. History of A-fib although currently in normal sinus rhythm. Patient noted to have bradycardia. Off amiodarone. Dr. Hartman was consulted. Recommended aspirin bid for prophylaxis. Will give heparin while in the hospital. Plan for discharge to rehab in a.m.
--- NOTE | 2025-02-27 12:32 | PC.PT ---
Patient is safe to ambulate to the bathroom with a FWW, her O2, and 1 staff assist. RN made aware.
--- NOTE | 2025-02-27 15:03 | ESPR_ITS ---
<Statement entered by Juan Carlos Quinones MD - 03/02/25 17:32> I examined the patient evaluate the patient with resident physician Dr. Anderson PGY 2 the patient is known to me has a history of A-fib but she does not have any further episodes atrial fibrillation for several years decided not to anticoagulate the patient because of risk of bleeding. Might consider prophylactic use of Eliquis 2.5 twice daily otherwise no other recommendations. Agree with the treatment treatment plan recommendation as documented by Dr. Anderson. Documentation for date of: 02/27/25 Subjective Subjective Interval history: Pt is seen at bedside. Currently in Sinus rhythm with rate of 65-67. Pt is saturating above 94% on 2 L oxygen via nasal cannula. Pt was just reposition in bed therefore is complaining of pain in the hip rigth now but otherwise feeling great. Pt underwent physical therapy today and states she was able to walk to the door without difficulty. Pt will be discharge to rehab tomorrow to continue physical therapy. vitals are stable, labs are reviewed and electrolytes are repleted. Recommend continuing DVT prophylaxis with Aspirin as per orthopedics recommendations. Continue Amiodarone 200mg QD, no anticoagulation for afib at this time. Exam Vital Signs Temp Pulse Resp BP Pulse Ox O2 Del Method O2 Flow Rate 97.8 F 60 19 94/58 L 98 Nasal Cannula 2 02/27/25 12:00 02/27/25 12:00 02/27/25 12:00 02/27/25 12:00 02/27/25 12:00 02/27/25 12:00 02/27/25 12:00 Narrative Exam GENERAL: A&Ox3 . Awake, Not in acute distress NEURO: no focal neurological deficits HEENT: Atraumatic, Normocephalic. mucous membranes moist. Eyes open, symmetrical, & clear HEART: Normal Heart Sounds LUNGS: Clear to auscultation with no wheezing or crackles. ABDOMEN: soft, non-distended, non-tender, bowel sounds heard, no guarding or rebound tenderness SKIN: No Rash or ecchymoses EXTREMITIES: No edema, tenderness, able to move all 4 extremities, pedal pulses palpated, surgical site is clean and dry, limited range of movement due to pain Objective Labs 02/27/25 05:36 02/27/25 05:36 Labs: Laboratory Results - last 24 hr 02/27/25 05:36 WBC 13.5 H D RBC 3.06 L Hgb 10.1 L Hct 28.3 L MCV 93 MCH 33.0 MCHC 35.7 RDW Std Deviation 43.8 Plt Count 106 L D Neut % (Auto) 90 H Lymph % (Auto) 5 L [place] % (Auto) 5 Eos % (Auto) 0 Baso % (Auto) 0 Neut # (Auto) 12.1 H Lymph # (Auto) 0.6 L [place] # (Auto) 0.7 Eos # (Auto) 0.0 Baso # (Auto) 0.0 Immature Gran # (Auto) 0.07 H Absolute Nucleated RBC 0.00 Immature Gran % 1 H Nucleated RBC % 0 Sodium 134 L Potassium 5.0 Chloride 102 Carbon Dioxide 21.5 Anion Gap 11 BUN 13 Creatinine 0.9 Estim Creat Clear Calc 33.9 L eGFR > 60 BUN/Creatinine Ratio 14 Glucose 155 H Calculated Osmolality 271 L Calcium 9.0 Quality Measures Quality Measures none Advance care planning discussed with:: patient Assessment & Plan Assessment Current Active Medications: Generic Name Dose Route Start Last Admin Trade Name Freq PRN Reason Stop Dose Admin Acetaminophen 650 mg 02/25/25 10:43 Acetaminophen 325 Mg Tablet PO 03/27/25 10:42 Q6H PRN PAIN 1-3 OR FEVER > 101 Hydrocodone Bitart/Acetaminophen 1 tab 02/25/25 09:42 02/27/25 09:11 Hydrocodone/Apap 5/325 Tablet PO 03/02/25 09:41 1 tab Q4HR PRN Administration PAIN SCALE 4-6 (Moderate Albuterol 90 puff 02/26/25 15:03 Albuterol Inh 8 Gm INH 03/28/25 15:02 Q4H PRN Shortness Of Breath Or Wheezing Amiodarone HCl 200 mg 02/26/25 21:00 02/26/25 20:28 Amiodarone Hcl 200 Mg Tablet PO 03/28/25 20:59 Not Given HS SANDOR Aspirin 81 mg 02/27/25 09:00 02/27/25 08:38 Aspirin Ec 81 Mg Tabec PO 03/29/25 08:59 81 mg DAILY SANDOR Administration Ferrous Sulfate 325 mg 02/27/25 09:00 02/27/25 08:38 Ferrous Sulf 325 Mg Tablet PO 03/29/25 08:59 325 mg DAILY SANDOR Administration Sodium Chloride 1,000 mls @ 80 mls/hr 02/25/25 19:55 02/27/25 08:38 Ns IV 03/27/25 19:54 80 mls/hr .[id number] SANDOR Administration Loratadine 10 mg 02/27/25 09:00 02/27/25 08:38 Loratadine 10 Mg Tablet PO 03/29/25 08:59 10 mg QDAY SANDOR Administration Morphine Sulfate 1 mg 02/26/25 06:40 02/27/25 06:46 Morphine Sulf Inj 10 Mg/Ml Vial IVP 03/02/25 19:52 1 mg Q3HR PRN Administration PAIN SCALE 7-10 (Severe Multivitamins 1 tab 02/27/25 09:00 02/27/25 08:38 Multivitamins Tablet PO 03/29/25 08:59 1 tab DAILY SANDOR Administration Ondansetron HCl 4 mg 02/25/25 10:43 02/25/25 20:21 Ondansetron Inj 2 Mg/Ml Inj 2 Ml IV 03/27/25 10:42 4 mg Q6H PRN Administration NAUSEA OR VOMITING Protocol Sennosides 2 tab 02/25/25 10:43 Senna Tablet PO 03/27/25 10:42 BID PRN CONSTIPATION Protocol Tizanidine HCl 2 mg 02/26/25 15:03 Tizanidine Hcl 2 Mg Tablet PO 03/28/25 15:02 QDAY PRN MUSCLE SPASMS Protocol Plan Ms. Elkins is a 84-year-old female with significant past medical history of atrial fibrillation not on anticoagulation, CKD, chronic lung disease on 2 L oxygen, depression, anemia presented to the hospital with chief complaints of fall, admitted for acute displaced fracture of right hip followed by right hip hemiarthroplasty #History of paroxysmal atrial fibrillation, currently in normal sinus rhythm #Bradycardia #Status post right hip hemiarthroplasty - Patient had history of atrial fibrillation and was on amiodarone 200 Mg p.o. at bedtime but not on any anticoagulation - Per chart review, EKG since 2018 did not show any further episodes of atrial fibrillation. Also found to have mild bradycardia with heart rate around 55 to 60 bpm since then - Does not remember exact duration since she had A-fib, denies history of CAD/PCI/CABG, heart failure, TIA/stroke - [id number] score is 3, risk for stroke less than 3% yearly Plan - Recommended to continue amiodarone 200 Mg p.o. at bedtime - Though patient had [id number] or of 3, no anticoagulation is needed for atrial fibrillation as patient did not have any history of TIA/stroke despite not being on anticoagulation. - As patient had fall risk now, it is better not to start any anticoagulation for atrial fibrillation - For DVT prophylaxis patient can continue Aspirin as per orthopedic surgery recommendation - Patient does not have any symptoms of bradycardia like dizziness, skipped beats, hypotension - no need of any pacemaker for now #Displaced right femoral neck fracture #Normocytic anemia, stable #CKD Stage IIIa, stable #Urinary urge incontinence #Osteoarthritis -Rest of the medical conditions to be treated as per primary team Assessment and plan discussed with my attending Parts Facilitator Dr. Joni Anderson (PGY-2)- Internal medicine resident
[2025-02-27] MEDS: AMIODARONE HCL 200 MG TABLET PO (21:16)
[2025-02-27] MEDS: HEPARIN SOD INJ 5000 UNIT/ML VIAL SC (21:16)
[2025-02-28] VITALS (11 sets, daily range): BP systolic 99–134; BP diastolic 52–72; PULSE 58–80; RESP 16–22; TEMP 36.2–36.7; O2SAT 93–100
--- NOTE | 2025-02-28 00:03 | PC.NURSE ---
Patient woke up from her sleep and accidentally pulled out her IV on the left forearm. A new IV was inserted on her Right hand.
[2025-02-28] MEDS: MORPHINE SULF INJ 10 MG/ML VIAL IVP (00:12)
[2025-02-28] MEDS: SODIUM CHLORIDE 0.9% 1000 ML 1,000 ML 80 ML IV ×2 (05:56→19:54)
[2025-02-28] MEDS: HEPARIN SOD INJ 5000 UNIT/ML VIAL SC ×3 (05:56→21:13)
[2025-02-28 06:37] LABS: Basophils # (Auto) 0.0 Thou/mm3 (0.0-0.2); Basophils % (Auto) 0 % (0-2.5); Eosinophils # (Auto) 0.0 Thou/mm3 (0.0-0.5); Eosinophils % (Auto) 0 % (0-10); Hematocrit 28.9 % (36.0-46.0); Hemoglobin 10.1 g/dL (12.0-16.0); Immature Granulocytes Auto 0.06 Thou/mm3 (0.00-0.00); Lymphocytes # (Auto) 1.4 Thou/mm3 (1.0-4.8); Lymphocytes % (Auto) 13 % (10-50); Mean Corpuscular HGB Conc 34.9 g/dl (31.0-37.0); Mean Corpuscular Hemoglobin 32.5 pg (25.0-35.0); Mean Corpuscular Volume 93 fL (80-100); Monocytes # (Auto) 1.0 Thou/mm3 (0.0-0.8); Monocytes % (Auto) 9 % (0-12); Neutrophils # (Auto) 8.3 Thou/mm3 (1.8-7.7); Neutrophils % (Auto) 77 % (37-80); Nucleated Red Blood Cell # 0.00 Thou/mm3 (0.00-0.00); Nucleated Red Blood Cell % 0 /100 WBC (0); Platelet Count 111 Thou/mm3 (140-440); RDW Standard Deviation 45.3 fL (36.4-46.3); Red Blood Count 3.11 Miln/mm3 (4.00-5.20); White Blood Count 10.7 Thou/mm3 (3.6-11.0)
[2025-02-28 07:40] LABS: Anion Gap 9 (7-16); BUN/Creatinine Ratio 17 Ratio (12-20); Blood Urea Nitrogen 12 mg/dL (9-23); Calcium 8.6 mg/dL (8.3-10.6); Carbon Dioxide 21.9 mMol/L (20.0-31.0); Chloride 107 mMol/L (98-107); Creatinine (Component) 0.7 mg/dL (0.6-1.3); Estimated Creatinine Clearance 43.5 mL/min (>60); Glucose 108 mg/dL (74-106); Osmolality,Calculated 276 (275-295); Potassium 4.8 mMol/L (3.4-5.1); Sodium 138 mMol/L (136-145); eGFR > 60 See Note
[2025-02-28] MEDS: MULTIVITAMINS TABLET 1 TAB PO (08:21)
[2025-02-28] MEDS: ASPIRIN EC 81 MG TABEC PO (08:21)
[2025-02-28] MEDS: FERROUS SULF 325 MG TABLET PO (08:21)
--- NOTE | 2025-02-28 09:24 | PD.RESPRO ---
Documentation for date of: 02/28/25 Subjective Subjective Interval history: Mayi Fox is a 84F pmhx significant for atrial fibrillation, CKDIII, COPD on 2L at home, depression, and anemia who presents with mechanical fall. She reports that earlier this morning she was gardening in the back yard when she tripped over her feet and fell. Denies frequent falls, syncope, dizziness or palpitations at the time of the fall or currently. Reports that she uses 2L of O2 at night and sometimes during the day when she feels short of breath. Denies chest pain, SOB or fever. Currently reports no pain as was given morphine in ED. 02/26/25: Overnight, HR dropped to low 50s, no interventions. Patient seen and examined at bedside. Patient is asleep on left side and endorses significant pain of Rt hip. Denies chest pain, SOB, fever, or palpitations. Upon exam, HR stable high 50s-low 60s on tele monitor. 02/27/25: No acute overnight events. Patient seen and examined at bedside. Hip replacement surgery yesterday afternoon. States that Rt hip is painful and stiff. Denies chest pain, SOB, fever, or palpitations. BP stable. HR stable low 50s-70. 02/28/25: No acute overnight events. Patient seen and examined at bedside. Complaints of Rt hip pain and stiffness. Has not had BM since prior to admission. Denies chest pain, SOB, or fever. In sinus rhythm HR in 60s at bedside. BP stable. Exam Vital Signs Temp Pulse Resp BP Pulse Ox O2 Del Method O2 Flow Rate 97.1 F 63 16 134/67 H 95 Nasal Cannula 2 02/28/25 07:32 02/28/25 07:32 02/28/25 07:32 02/28/25 07:32 02/28/25 07:32 02/28/25 07:32 02/28/25 07:32 Narrative Exam General: AOx3, no acute distress HEENT: NC/AT, mucous membranes moist, bilateral sclera anicteric Cardiovascular: regular rate and rhythm, S1/S2 present, no murmurs appreciated Pulmonary: clear to auscultation bilaterally, no rales/rhonchi/wheezes Abdominal: soft, non-tender, non-distended, no rebound/guarding, bowel sounds present Extremities: no peripheral edema, Rt hip surgical site dressed Skin: warm and dry, intact, no rashes Neuro CN II-XII grossly intact, no focal deficits, alert, following commands Objective Labs 02/28/25 04:15 02/28/25 04:15 Labs: Laboratory Results - last 24 hr 02/28/25 04:15 WBC 10.7 RBC 3.11 L Hgb 10.1 L Hct 28.9 L MCV 93 MCH 32.5 MCHC 34.9 RDW Std Deviation 45.3 Plt Count 111 L Neut % (Auto) 77 Lymph % (Auto) 13 [place] % (Auto) 9 Eos % (Auto) 0 Baso % (Auto) 0 Neut # (Auto) 8.3 H Lymph # (Auto) 1.4 [place] # (Auto) 1.0 H Eos # (Auto) 0.0 Baso # (Auto) 0.0 Immature Gran # (Auto) 0.06 H Absolute Nucleated RBC 0.00 Immature Gran % 1 H Nucleated RBC % 0 Sodium 138 Potassium 4.8 Chloride 107 Carbon Dioxide 21.9 Anion Gap 9 BUN 12 Creatinine 0.7 Estim Creat Clear Calc 43.5 L eGFR > 60 BUN/Creatinine Ratio 17 Glucose 108 H Calculated Osmolality 276 Calcium 8.6 Quality Measures Quality Measures none Advance care planning discussed with:: patient Assessment & Plan Assessment Current Active Medications: Generic Name Dose Route Start Last Admin Trade Name Freq PRN Reason Stop Dose Admin Acetaminophen 650 mg 02/25/25 10:43 Acetaminophen 325 Mg Tablet PO 03/27/25 10:42 Q6H PRN PAIN 1-3 OR FEVER > 101 Hydrocodone Bitart/Acetaminophen 1 tab 02/25/25 09:42 02/27/25 09:11 Hydrocodone/Apap 5/325 Tablet PO 03/02/25 09:41 1 tab Q4HR PRN Administration PAIN SCALE 4-6 (Moderate Albuterol 90 puff 02/26/25 15:03 Albuterol Inh 8 Gm INH 03/28/25 15:02 Q4H PRN Shortness Of Breath Or Wheezing Amiodarone HCl 200 mg 02/26/25 21:00 02/27/25 21:16 Amiodarone Hcl 200 Mg Tablet PO 03/28/25 20:59 200 mg HS SANDOR Administration Aspirin 81 mg 02/27/25 09:00 02/28/25 08:21 Aspirin Ec 81 Mg Tabec PO 03/29/25 08:59 81 mg DAILY SANDOR Administration Ferrous Sulfate 325 mg 02/27/25 09:00 02/28/25 08:21 Ferrous Sulf 325 Mg Tablet PO 03/29/25 08:59 325 mg DAILY SANDOR Administration Heparin Sodium (Porcine) 5,000 unit 02/27/25 22:00 02/28/25 05:56 Heparin Sod Inj 5000 Unit/Ml Vial SC 03/13/25 21:59 5,000 unit Q8HR SANDOR Administration Sodium Chloride 1,000 mls @ 80 mls/hr 02/25/25 19:55 02/28/25 05:56 Ns IV 03/27/25 19:54 80 mls/hr .[id number] SANDOR Administration Lactulose 20 gm 02/28/25 08:50 Lactulose Syrup 20 Gm/30 Ml Udc PO 03/30/25 08:59 TID PRN CONSTIPATION Protocol Loratadine 10 mg 02/27/25 09:00 02/28/25 08:21 Loratadine 10 Mg Tablet PO 03/29/25 08:59 10 mg QDAY SANDOR Administration Morphine Sulfate 1 mg 02/26/25 06:40 02/28/25 00:12 Morphine Sulf Inj 10 Mg/Ml Vial IVP 03/02/25 19:52 1 mg Q3HR PRN Administration PAIN SCALE 7-10 (Severe Multivitamins 1 tab 02/27/25 09:00 02/28/25 08:21 Multivitamins Tablet PO 03/29/25 08:59 1 tab DAILY SANDOR Administration Naloxegol 25 mg 02/28/25 09:00 Naloxegol Oxalate 25 Mg Tablet (Non-Formulary) PO 03/30/25 08:59 QDAY [facility] Ondansetron HCl 4 mg 02/25/25 10:43 02/25/25 20:21 Ondansetron Inj 2 Mg/Ml Inj 2 Ml IV 03/27/25 10:42 4 mg Q6H PRN Administration NAUSEA OR VOMITING Protocol Sennosides 2 tab 02/25/25 10:43 Senna Tablet PO 03/27/25 10:42 BID PRN CONSTIPATION Protocol Tizanidine HCl 2 mg 02/26/25 15:03 Tizanidine Hcl 2 Mg Tablet PO 03/28/25 15:02 QDAY PRN MUSCLE SPASMS Protocol Plan Mayi Fox is a 84F pmhx significant for atrial fibrillation, CKDIII, COPD on 2L at home, depression, and anemia who presents with fall, admitted for Rt femoral neck fracture operated by Dr. Gonzalez 02/26. #Constipation Patient has not had a bowel movement since admission. Likely opioid induced as has received significant morphine doses and hydrocodone for hip pain. Plan: -Movantik 25 mg QD -Lactulose 20 mg BID prn #Displaced right femoral neck fracture s/p hip hemiarthroplasty 02/26/25 Patient sustained mechanical ground level fall while gardening, denies syncope or headstrike Hip x-ray shows acute displaced fracture of Rt femoral neck. Femur x-ray shows shaft of femur intact, acute displaced Rt femoral neck fracture. Rt knee X-ray shows a limited study w no acute fracture. Plan: -Pain scale regimen: norco 5 q4h prn, morphine 1 q3h prn -ASA 81 mg QD started for post surgery thromboprophylaxis -Zofran prn for nausea -Post op PT ordered: recommend discharge to SNF #Atrial Fibrillation, rate controlled, stable Patient is unaware she has atrial fibrillation, but upon chart review, she is taking ASA and amiodarone and follows Dr. Quinones outpatient. Denies palpitations. At bedside, is in sinus rhythm with HR high 50s-low 60s. No recorded atrial fibrillation during current stay. Plan: -on amiodarone 200 mg po qhs -CTM -Cardiology Dr. Quinones consulted recs appreciated: continue amiodarone 200 mg qhs, for DVT prophylaxis either Eliquis 2.5 mg BID for 10 days or ASA 81 mg BID for 10 days #Normocytic anemia, stable Admission Hgb 11.5 MCV 94, but Hgb 12.5 01/2025. Not taking prescribed iron supplements at home. Plan: -CTM and manage outpatient #CKD Stage IIIa, stable Admission GFR 55 Cr 1.0 at baseline. Plan: -CTM, trend -Avoid nephrotoxic medication -Renally dose medication #Urinary urge incontinence #Osteoarthritis Chronic medical conditions nonpertinent to the following presentation Plan: -Hold solifenacin 10 mg QD and topical diclofenac for now Hospital management: Diet: regular Bowel: Senna GI prophylaxis: none for now DVT prophylaxis: heparin Disposition: med surg for Rt femoral fracture surgery CODE STATUS: Full code Plan of care discussed with attending Dr. Knutson. Shana Vazquez, PGY-1 Internal Medicine Attending Provider Attestation/Addendum Patient seen and examined with resident physician Dr. Vazquez. Note reviewed, agree with findings and recommendations. Status post fall-right femoral fracture and fixation with Dr. Gonzalez. History of A-fib although currently in normal sinus rhythm. Bradycardia seems to be acceptable. Back on amiodarone. Dr. Hartman was consulted. Recommended aspirin bid for prophylaxis. Will give heparin while in the hospital. Plan for discharge to rehab in a.m once she has a bowel movement
[2025-02-28] MEDS: NALOXEGOL OXALATE 25 MG TABLET (NON-FORMULARY) PO (09:33)
[2025-02-28] MEDS: HYDROcodone/APAP 5/325 TABLET 1 TAB PO ×2 (09:33→20:07)
[2025-02-28] MEDS: LACTULOSE SYRUP 20 GM/30 ML UDC PO ×2 (09:33→14:55)
--- NOTE | 2025-02-28 10:07 | CHAP ---
Patient expressed gratitude for visit and prayer.
[2025-02-28] MEDS: GLYCERIN, ADULT 1 EA SUPP 1 EACH PR (15:51)
[2025-02-28] MEDS: SIMETHICONE 80 MG CHEW PO (15:51)
--- NOTE | 2025-02-28 18:49 | ESPR_ITS ---
<Statement entered by Juan Carlos Quinones MD - 03/02/25 17:46> I personally evaluated examined the patient with the resident physician PGY 2 Dr. Anderson patient is clinically stable orthopedic surgeon decided to give aspirin. There is no evidence in the medical literature and internal medicine about aspirin use for orthopedic surgery prevention however orthopedic surgery articles do have aspirin use which is okay with me though but it is not expected to be useful recommend the patient to be active to prevent DVT. Documentation for date of: 02/28/25 Subjective Subjective Interval history: Pt is seen at bedside, currently saturating 97% on 1L O2. Pt starts she was able to ambulate down the hallway and back without difficulty. Pt denies any chest palpitations. Does not have any cardiac complaints. Pt complains of constipation and gas, states she feels very uncomfortable. Pt is pending rehab placement. Recommend following Orthpedic recommendations on DVT prophalaxis post surgery. Pt is in sinus rhythm, continue Amiodarone 200mg QD, no anticoagulation for afib at this time. Cardiology team reema sign off, if further questions please do reach out Exam Vital Signs Temp Pulse Resp BP Pulse Ox O2 Del Method O2 Flow Rate 97.1 F 70 16 99/52 L 97 Nasal Cannula 1 02/28/25 16:00 02/28/25 16:00 02/28/25 16:00 02/28/25 16:00 02/28/25 16:00 02/28/25 16:00 02/28/25 16:00 Narrative Exam GENERAL: A&Ox3 . Awake, Not in acute distress NEURO: no focal neurological deficits HEENT: Atraumatic, Normocephalic. mucous membranes moist. Eyes open, symmetrical, & clear HEART: Normal Heart Sounds LUNGS: Clear to auscultation with no wheezing or crackles. ABDOMEN: soft, non-distended, non-tender, bowel sounds heard, no guarding or rebound tenderness SKIN: No Rash or ecchymoses EXTREMITIES: No edema, tenderness, able to move all 4 extremities, pedal pulses palpated, surgical site is clean and dry, limited range of movement due to pain Objective Labs 02/28/25 04:15 02/28/25 04:15 Labs: Laboratory Results - last 24 hr 02/28/25 04:15 WBC 10.7 RBC 3.11 L Hgb 10.1 L Hct 28.9 L MCV 93 MCH 32.5 MCHC 34.9 RDW Std Deviation 45.3 Plt Count 111 L Neut % (Auto) 77 Lymph % (Auto) 13 [place] % (Auto) 9 Eos % (Auto) 0 Baso % (Auto) 0 Neut # (Auto) 8.3 H Lymph # (Auto) 1.4 [place] # (Auto) 1.0 H Eos # (Auto) 0.0 Baso # (Auto) 0.0 Immature Gran # (Auto) 0.06 H Absolute Nucleated RBC 0.00 Immature Gran % 1 H Nucleated RBC % 0 Sodium 138 Potassium 4.8 Chloride 107 Carbon Dioxide 21.9 Anion Gap 9 BUN 12 Creatinine 0.7 Estim Creat Clear Calc 43.5 L eGFR > 60 BUN/Creatinine Ratio 17 Glucose 108 H Calculated Osmolality 276 Calcium 8.6 Quality Measures Quality Measures none Advance care planning discussed with:: patient Assessment & Plan Assessment Current Active Medications: Generic Name Dose Route Start Last Admin Trade Name Freq PRN Reason Stop Dose Admin Acetaminophen 650 mg 02/25/25 10:43 Acetaminophen 325 Mg Tablet PO 03/27/25 10:42 Q6H PRN PAIN 1-3 OR FEVER > 101 Hydrocodone Bitart/Acetaminophen 1 tab 02/25/25 09:42 02/28/25 09:33 Hydrocodone/Apap 5/325 Tablet PO 03/02/25 09:41 1 tab Q4HR PRN Administration PAIN SCALE 4-6 (Moderate Albuterol 90 puff 02/26/25 15:03 Albuterol Inh 8 Gm INH 03/28/25 15:02 Q4H PRN Shortness Of Breath Or Wheezing Amiodarone HCl 200 mg 02/26/25 21:00 02/27/25 21:16 Amiodarone Hcl 200 Mg Tablet PO 03/28/25 20:59 200 mg HS SANDOR Administration Aspirin 81 mg 02/27/25 09:00 02/28/25 08:21 Aspirin Ec 81 Mg Tabec PO 03/29/25 08:59 81 mg DAILY SANDOR Administration Ferrous Sulfate 325 mg 02/27/25 09:00 02/28/25 08:21 Ferrous Sulf 325 Mg Tablet PO 03/29/25 08:59 325 mg DAILY SANDOR Administration Heparin Sodium (Porcine) 5,000 unit 02/27/25 22:00 02/28/25 14:56 Heparin Sod Inj 5000 Unit/Ml Vial SC 03/13/25 21:59 5,000 unit Q8HR SANDOR Administration Sodium Chloride 1,000 mls @ 80 mls/hr 02/25/25 19:55 02/28/25 05:56 Ns IV 03/27/25 19:54 80 mls/hr .[id number] SANDOR Administration Lactulose 20 gm 02/28/25 08:50 02/28/25 14:55 Lactulose Syrup 20 Gm/30 Ml Udc PO 03/30/25 08:59 20 gm TID PRN Administration CONSTIPATION Protocol Loratadine 10 mg 02/27/25 09:00 02/28/25 08:21 Loratadine 10 Mg Tablet PO 03/29/25 08:59 10 mg QDAY SANDOR Administration Morphine Sulfate 1 mg 02/26/25 06:40 02/28/25 00:12 Morphine Sulf Inj 10 Mg/Ml Vial IVP 03/02/25 19:52 1 mg Q3HR PRN Administration PAIN SCALE 7-10 (Severe Multivitamins 1 tab 02/27/25 09:00 02/28/25 08:21 Multivitamins Tablet PO 03/29/25 08:59 1 tab DAILY SANDOR Administration Naloxegol 25 mg 02/28/25 09:00 02/28/25 09:33 Naloxegol Oxalate 25 Mg Tablet (Non-Formulary) PO 03/30/25 08:59 25 mg QDAY SANDOR Administration Ondansetron HCl 4 mg 02/25/25 10:43 02/25/25 20:21 Ondansetron Inj 2 Mg/Ml Inj 2 Ml IV 03/27/25 10:42 4 mg Q6H PRN Administration NAUSEA OR VOMITING Protocol Sennosides 1 tab 02/28/25 15:00 02/28/25 15:51 Senna Tablet PO 03/30/25 14:59 1 tab BID SANDOR Administration Protocol Tizanidine HCl 2 mg 02/26/25 15:03 Tizanidine Hcl 2 Mg Tablet PO 03/28/25 15:02 QDAY PRN MUSCLE SPASMS Protocol Plan Ms. Elkins is a 84-year-old female with significant past medical history of atrial fibrillation not on anticoagulation, CKD, chronic lung disease on 2 L oxygen, depression, anemia presented to the hospital with chief complaints of fall, admitted for acute displaced fracture of right hip followed by right hip hemiarthroplasty #History of paroxysmal atrial fibrillation, currently in normal sinus rhythm #Bradycardia #Status post right hip hemiarthroplasty - Patient had history of atrial fibrillation and was on amiodarone 200 Mg p.o. at bedtime but not on any anticoagulation - Per chart review, EKG since 2018 did not show any further episodes of atrial fibrillation. Also found to have mild bradycardia with heart rate around 55 to 60 bpm since then - Does not remember exact duration since she had A-fib, denies history of CAD/PCI/CABG, heart failure, TIA/stroke - [id number] score is 3, risk for stroke less than 3% yearly Plan - Recommended to continue amiodarone 200 Mg p.o. at bedtime - Though patient had [id number] or of 3, no anticoagulation is needed for atrial fibrillation as patient did not have any history of TIA/stroke despite not being on anticoagulation. - As patient had fall risk now, it is better not to start any anticoagulation for atrial fibrillation - For DVT prophylaxis patient can continue Aspirin as per orthopedic surgery recommendation - Patient does not have any symptoms of bradycardia like dizziness, skipped beats, hypotension - no need of any pacemaker for now #Displaced right femoral neck fracture #Normocytic anemia, stable #CKD Stage IIIa, stable #Urinary urge incontinence #Osteoarthritis -Rest of the medical conditions to be treated as per primary team Assessment and plan discussed with my attending Lens Shaper Grinder Dr. Joni Anderson (PGY-2)- Internal medicine resident
[2025-02-28] MEDS: AMIODARONE HCL 200 MG TABLET PO (20:07)
[2025-03-01] VITALS (11 sets, daily range): BP systolic 98–117; BP diastolic 47–77; PULSE 57–94; RESP 15–95; TEMP 36.1–37; O2SAT 94–99; BMI 11.0
--- NOTE | 2025-03-01 04:20 | PC.NURSE ---
Left big toe noted to be swollen, reddish, warm and tender to touch with no visible opening. Pt complains of pain only when the area is in contact with the blanket. Dr. Vallejo was made aware. No new orders obtained at time. MD to let the day team know.
--- NOTE | 2025-03-01 04:36 | PC.NURSE ---
Dr. Vallejo and Dr. Champion in the room to assess patient.
[2025-03-01] MEDS: HEPARIN SOD INJ 5000 UNIT/ML VIAL SC ×3 (05:39→22:00)
--- NOTE | 2025-03-01 08:04 | PD.RESPRO ---
Documentation for date of: 03/01/25 Subjective Subjective Interval history: Mayi Fox is a 84F pmhx significant for atrial fibrillation, CKDIII, COPD on 2L at home, depression, and anemia who presents with mechanical fall. She reports that earlier this morning she was gardening in the back yard when she tripped over her feet and fell. Denies frequent falls, syncope, dizziness or palpitations at the time of the fall or currently. Reports that she uses 2L of O2 at night and sometimes during the day when she feels short of breath. Denies chest pain, SOB or fever. Currently reports no pain as was given morphine in ED. 02/26/25: Overnight, HR dropped to low 50s, no interventions. Patient seen and examined at bedside. Patient is asleep on left side and endorses significant pain of Rt hip. Denies chest pain, SOB, fever, or palpitations. Upon exam, HR stable high 50s-low 60s on tele monitor. 02/27/25: No acute overnight events. Patient seen and examined at bedside. Hip replacement surgery yesterday afternoon. States that Rt hip is painful and stiff. Denies chest pain, SOB, fever, or palpitations. BP stable. HR stable low 50s-70. 02/28/25: No acute overnight events. Patient seen and examined at bedside. Complaints of Rt hip pain and stiffness. Has not had BM since prior to admission. Denies chest pain, SOB, or fever. In sinus rhythm HR in 60s at bedside. BP stable. 03/01/25: No acute overnight events. Patient seen and examined at bedside. Vitals and labs reviewed. States hip pain is better, still stiff. Able to move both lower extremities. Endorsed BM this morning. Denies chest pain, SOB, or fever. Exam Vital Signs Temp Pulse Resp BP Pulse Ox O2 Del Method O2 Flow Rate 98.6 F 58 L 28 H 101/57 L 99 Nasal Cannula 1 03/01/25 08:00 03/01/25 08:00 03/01/25 08:00 03/01/25 08:00 03/01/25 08:00 03/01/25 08:00 03/01/25 08:00 Narrative Exam General: AOx3, no acute distress HEENT: NC/AT, mucous membranes moist, bilateral sclera anicteric Cardiovascular: regular rate and rhythm, S1/S2 present, no murmurs appreciated Pulmonary: clear to auscultation bilaterally, no rales/rhonchi/wheezes Abdominal: soft, non-tender, non-distended, no rebound/guarding, bowel sounds present Extremities: no peripheral edema, Rt hip surgical site dressed Skin: warm and dry, intact, no rashes Neuro CN II-XII grossly intact, no focal deficits, alert, following commands Objective Labs 02/28/25 04:15 02/28/25 04:15 Quality Measures Quality Measures VTE prophylaxis Advance care planning discussed with:: patient and spouse Assessment & Plan Assessment Current Active Medications: Generic Name Dose Route Start Last Admin Trade Name Freq PRN Reason Stop Dose Admin Acetaminophen 650 mg 02/25/25 10:43 Acetaminophen 325 Mg Tablet PO 03/27/25 10:42 Q6H PRN PAIN 1-3 OR FEVER > 101 Hydrocodone Bitart/Acetaminophen 1 tab 02/25/25 09:42 02/28/25 20:07 Hydrocodone/Apap 5/325 Tablet PO 03/02/25 09:41 1 tab Q4HR PRN Administration PAIN SCALE 4-6 (Moderate Albuterol 90 puff 02/26/25 15:03 Albuterol Inh 8 Gm INH 03/28/25 15:02 Q4H PRN Shortness Of Breath Or Wheezing Amiodarone HCl 200 mg 02/26/25 21:00 02/28/25 20:07 Amiodarone Hcl 200 Mg Tablet PO 03/28/25 20:59 200 mg HS SANDOR Administration Aspirin 81 mg 02/27/25 09:00 02/28/25 08:21 Aspirin Ec 81 Mg Tabec PO 03/29/25 08:59 81 mg DAILY SANDOR Administration Diclofenac Sodium 2 gm 03/01/25 06:00 03/01/25 06:15 Diclofenac 1% Top Gel 100 Gm Tube TOP 03/31/25 05:59 Not Given TID SANDOR Ferrous Sulfate 325 mg 02/27/25 09:00 02/28/25 08:21 Ferrous Sulf 325 Mg Tablet PO 03/29/25 08:59 325 mg DAILY SANDOR Administration Heparin Sodium (Porcine) 5,000 unit 02/27/25 22:00 03/01/25 05:39 Heparin Sod Inj 5000 Unit/Ml Vial SC 03/13/25 21:59 5,000 unit Q8HR SANDOR Administration Sodium Chloride 1,000 mls @ 80 mls/hr 02/25/25 19:55 02/28/25 19:54 Ns IV 03/27/25 19:54 80 mls/hr .[id number] SANDOR Administration Lactulose 20 gm 02/28/25 08:50 02/28/25 14:55 Lactulose Syrup 20 Gm/30 Ml Udc PO 03/30/25 08:59 20 gm TID PRN Administration CONSTIPATION Protocol Loratadine 10 mg 02/27/25 09:00 02/28/25 08:21 Loratadine 10 Mg Tablet PO 03/29/25 08:59 10 mg QDAY SANDOR Administration Morphine Sulfate 1 mg 02/26/25 06:40 02/28/25 00:12 Morphine Sulf Inj 10 Mg/Ml Vial IVP 03/02/25 19:52 1 mg Q3HR PRN Administration PAIN SCALE 7-10 (Severe Multivitamins 1 tab 02/27/25 09:00 02/28/25 08:21 Multivitamins Tablet PO 03/29/25 08:59 1 tab DAILY SANDOR Administration Naloxegol 25 mg 02/28/25 09:00 02/28/25 09:33 Naloxegol Oxalate 25 Mg Tablet (Non-Formulary) PO 03/30/25 08:59 25 mg QDAY SANDOR Administration Ondansetron HCl 4 mg 02/25/25 10:43 02/25/25 20:21 Ondansetron Inj 2 Mg/Ml Inj 2 Ml IV 03/27/25 10:42 4 mg Q6H PRN Administration NAUSEA OR VOMITING Protocol Sennosides 1 tab 02/28/25 15:00 02/28/25 20:08 Senna Tablet PO 03/30/25 14:59 Not Given BID SANDOR Protocol Tizanidine HCl 2 mg 02/26/25 15:03 Tizanidine Hcl 2 Mg Tablet PO 03/28/25 15:02 QDAY PRN MUSCLE SPASMS Protocol Plan Mayi Fox is a 84F pmhx significant for atrial fibrillation, CKDIII, COPD on 2L at home, depression, and anemia who presents with fall, admitted for Rt femoral neck fracture operated by Dr. Gonzalez 02/26. Pending DC to [facility]. #Constipation Patient has not had a bowel movement since admission. Likely opioid induced as has received significant morphine doses and hydrocodone for hip pain. Plan: -Movantik 25 mg QD -Lactulose 20 mg BID prn #Displaced right femoral neck fracture s/p hip hemiarthroplasty 02/26/25 Patient sustained mechanical ground level fall while gardening, denies syncope or headstrike Hip x-ray shows acute displaced fracture of Rt femoral neck. Femur x-ray shows shaft of femur intact, acute displaced Rt femoral neck fracture. Rt knee X-ray shows a limited study w no acute fracture. Plan: -Pain scale regimen: norco 5 q4h prn, morphine 1 q3h prn -ASA 81 mg QD started for post surgery thromboprophylaxis -Zofran prn for nausea -Post op PT ordered: recommend discharge to SNF #Atrial Fibrillation, rate controlled, stable Patient is unaware she has atrial fibrillation, but upon chart review, she is taking ASA and amiodarone and follows Dr. Quinones outpatient. Denies palpitations. At bedside, is in sinus rhythm with HR high 50s-low 60s. No recorded atrial fibrillation during current stay. Plan: -on amiodarone 200 mg po qhs -CTM -Cardiology Dr. Quinones consulted recs appreciated: continue amiodarone 200 mg qhs, for DVT prophylaxis either Eliquis 2.5 mg BID for 10 days or ASA 81 mg BID for 10 days #Normocytic anemia, stable Admission Hgb 11.5 MCV 94, but Hgb 12.5 01/2025. Not taking prescribed iron supplements at home. Plan: -CTM and manage outpatient #CKD Stage IIIa, stable Admission GFR 55 Cr 1.0 at baseline. Plan: -CTM, trend -Avoid nephrotoxic medication -Renally dose medication #Urinary urge incontinence #Osteoarthritis Chronic medical conditions nonpertinent to the following presentation Plan: -Hold solifenacin 10 mg QD and topical diclofenac for now Hospital management: Diet: regular Bowel: Senna GI prophylaxis: none for now DVT prophylaxis: heparin Disposition: med surg for Rt femoral fracture surgery CODE STATUS: Full code Plan of care discussed with attending Dr. Knutson. Ibrahima Khanna MD PGY-1 Attending Provider Attestation/Addendum Patient seen and examined with resident physician Dr. Khanna. Note reviewed, agree with findings and recommendations. Status post fall-right femoral fracture and fixation with Dr. Gonzalez. History of A-fib although currently in normal sinus rhythm. Bradycardia seems to be acceptable. Back on amiodarone with parameters. Dr. Hartman was consulted. Recommended aspirin bid for prophylaxis. Will give heparin while in the hospital. Plan for discharge to rehab in a.m once. she has a bowel movement
[2025-03-01] MEDS: MULTIVITAMINS TABLET 1 TAB PO (08:46)
[2025-03-01] MEDS: FERROUS SULF 325 MG TABLET PO (08:46)
[2025-03-01] MEDS: ASPIRIN EC 81 MG TABEC PO (08:46)
[2025-03-01] MEDS: NALOXEGOL OXALATE 25 MG TABLET (NON-FORMULARY) PO (08:49)
[2025-03-01] MEDS: SODIUM CHLORIDE 0.9% 1000 ML 1,000 ML 80 ML IV (13:33)
[2025-03-01] MEDS: DICLOFENAC 1% TOP GEL 100 GM TUBE TOP ×2 (13:56→22:11)
--- NOTE | 2025-03-01 16:35 | PC.NURSE ---
Clarified with MD Gonzalez pt is ok to dc over the phone. Per pt is clear and ready to DC.
[2025-03-01] MEDS: AMIODARONE HCL 200 MG TABLET PO (21:59)
[2025-03-01] MEDS: HYDROcodone/APAP 5/325 TABLET 1 TAB PO (22:06)
[2025-03-02] VITALS (9 sets, daily range): BP systolic 105–116; BP diastolic 51–62; PULSE 56–70; RESP 16–18; TEMP 36.1–36.8; O2SAT 94–99
[2025-03-02] MEDS: SODIUM CHLORIDE 0.9% 1000 ML 1,000 ML 80 ML IV (03:05)
[2025-03-02] MEDS: HYDROcodone/APAP 5/325 TABLET 1 TAB PO ×2 (04:22→08:55)
[2025-03-02] MEDS: LACTULOSE SYRUP 20 GM/30 ML UDC PO (04:22)
[2025-03-02] MEDS: HEPARIN SOD INJ 5000 UNIT/ML VIAL SC ×2 (05:45→13:48)
[2025-03-02] MEDS: DICLOFENAC 1% TOP GEL 100 GM TUBE TOP ×2 (05:45→13:51)
[2025-03-02] MEDS: FERROUS SULF 325 MG TABLET PO (08:25)
[2025-03-02] MEDS: ASPIRIN EC 81 MG TABEC PO (08:25)
[2025-03-02] MEDS: MULTIVITAMINS TABLET 1 TAB PO (08:25)
[2025-03-02] MEDS: NALOXEGOL OXALATE 25 MG TABLET (NON-FORMULARY) PO (08:26)
--- NOTE | 2025-03-02 09:28 | PD.RESDS ---
Planned Discharge Date 03/02/25 DS: Providers Provider Date of admission: 02/25/25 09:43 Primary care physician: Adriana Knutson MD Admitting Provider: Katie Cedeño MD Attending Provider on Admission: Almas Kebede MD Consults: 02/25/25 11:30 [facility] Referral - Transportation Routine Comment: Positive screening for transportation needs. 02/26/25 07:00 Consult to Cardiology Routine Comment: [facility], preop Consulting Provider: Juan Carlos Quinones Instructions: call in am 02/26/25 16:34 Referral Physical Therapy Routine Comment: Physician Instructions: Attending Provider on DC: RESIDENT John Discharging Provider: RESIDENT John DS: Diagnosis Problem List Completed Was Problem List Reviewed/Reconciled?: Yes Hospital Course Hospital Course Hospital course: Mayi Fox is a 84F pmhx significant for atrial fibrillation, CKDIII, COPD on 2L at home, depression, and anemia who presents with mechanical fall. She reports that earlier this morning she was gardening in the back yard when she tripped over her feet and fell. Denies frequent falls, syncope, dizziness or palpitations at the time of the fall or currently. Reports that she uses 2L of O2 at night and sometimes during the day when she feels short of breath. Denies chest pain, SOB or fever. Currently reports no pain as was given morphine in ED. 02/26/25: Overnight, HR dropped to low 50s, no interventions. Patient seen and examined at bedside. Patient is asleep on left side and endorses significant pain of Rt hip. Denies chest pain, SOB, fever, or palpitations. Upon exam, HR stable high 50s-low 60s on tele monitor. 02/27/25: No acute overnight events. Patient seen and examined at bedside. Hip replacement surgery yesterday afternoon. States that Rt hip is painful and stiff. Denies chest pain, SOB, fever, or palpitations. BP stable. HR stable low 50s-70. 02/28/25: No acute overnight events. Patient seen and examined at bedside. Complaints of Rt hip pain and stiffness. Has not had BM since prior to admission. Denies chest pain, SOB, or fever. In sinus rhythm HR in 60s at bedside. BP stable. 03/01/25: No acute overnight events. Patient seen and examined at bedside. Vitals and labs reviewed. States hip pain is better, still stiff. Able to move both lower extremities. Endorsed BM this morning. Denies chest pain, SOB, or fever. 03/02/25: Patient seen and examined at bedside. Still having some Rt hip pain and stiffness. Denies chest pain, SOB, or fever. Patient is feeling well and ready to go home. Status at Discharge Cognitive/behavioral status at discharge: Stable. Overall status at discharge: patient is progressing back to baseline Time Spent with Patient Time attestation: Total time spent providing and/or coordinating discharge services: Time spent: Greater than 30 minutes Exam Vital Signs Temp Pulse Resp BP Pulse Ox O2 Del Method O2 Flow Rate 97.8 F 60 18 107/60 99 Nasal Cannula 1 03/02/25 08:00 03/02/25 08:00 03/02/25 08:00 03/02/25 08:00 03/02/25 08:00 03/02/25 08:00 03/02/25 08:00 Narrative Exam General: AOx3, no acute distress HEENT: NC/AT, mucous membranes moist, bilateral sclera anicteric Cardiovascular: regular rate and rhythm, S1/S2 present, no murmurs appreciated Pulmonary: clear to auscultation bilaterally, no rales/rhonchi/wheezes Abdominal: soft, non-tender, non-distended, no rebound/guarding, bowel sounds present Extremities: no peripheral edema, Rt hip surgical site dressed, able to wiggles toes and move feet Skin: warm and dry, intact, no rashes Neuro CN II-XII grossly intact, no focal deficits, alert, following commands Discharge Plan Plan Patient Disposition: Xfer Skilled Nsg Fac (SNF) Disposition Comment: [facility] Patient condition on transfer: Stable Prescriptions/Referrals Prescriptions/Med Rec: New hydrocodone-acetaminophen 5-325 mg Tablet 1 tab PO Q4HR MDD 4 PRN (Reason: Pain Scale 4-6 (Moderate) Qty: 1 0RF Continued Myrbetriq 25 mg tablet extended release 24 hr 25 mg PO QDAY amiodarone 200 mg Tablet 200 mg PO QPM aspirin [Aspir-81] 81 mg Tablet,Delayed Release (Dr/Ec) 81 mg PO PRN timolol 0.5 % Drops 1 drp OPHTHALMIC (EYE) BID nitroglycerin 0.4 mg Tablet, Sublingual 0.4 mg BUCCAL 1XD PRN (Reason: Chest Pain) fluticasone propionate 50 mcg/actuation [place],Suspension 1 spray INTRANASAL HS Rx Instructions: administer into each nostril ferrous sulfate 325 mg (65 mg iron) Capsule, Extended Release 325 mg PO DAILY tizanidine 2 mg Tablet 2 mg PO PRN PRN (Reason: muscle spasticity) Centrum Silver Women 8 mg iron-400 mcg-300 mcg Tablet 1 tab PO DAILY ferrous sulfate [iron] 325 mg (65 mg iron) Tablet 325 mg PO QDAY vitamin E 400 unit Tablet 45 mg PO QDAY albuterol 90 mcg/actuation Aerosol 90 mcg INHALATION PRN PRN (Reason: Shortness Of Breath Or Wheezing) loratadine 10 mg Tablet 10 mg PO QDAY Referrals: Adriana Knutson MD [Primary Care Provider] - Patient/Caregiver Discharge Instructions Discharge Activity: activity as tolerated Education Materials: Surgery Anesthesia After, Preventing Surgical Site Infections Print Language: Estonian Activity Restrictions/Additional Instructions: follow up with Dr. kebede in 1-2 weeks\aspirin 81mg by mouth twice a day for 10 days Hold amiodarone if heart rate less than 60. Stand Alone Forms: [employer] Award Info., Patient Portal Info Letter Discharge Order Discharge Orders: Discharge (Routine); Ordered 03/02/25 Ordered By: Adriana Knutson Quality Discharge Quality Measures VTE prophylaxis MD Attestestation MD Attestation Patient seen and examined with resident physician Dr. Khanna. Note reviewed, agree with findings and recommendations. Status post fall-right femoral fracture and fixation with Dr. Kebede. History of A-fib although currently in normal sinus rhythm. Bradycardia seems to be acceptable. Back on amiodarone with parameters. Dr. Hartman was consulted. Recommended aspirin bid for prophylaxis. Will give heparin while in the hospital. Plan for discharge to rehab today,. CC:
--- NOTE | 2025-03-02 15:24 | PC.SS ---
Addendum entered by Monse Ortiz 03/02/25 15:31: SS received call from patient's son Yahir Castrjeon [phone], SS informed him patient to discharge today at 1700 to [facility]. Original Note: SS informed by ERROL Metzger patient is ready for discharge. SS confirmed with [facility] she can accept patient today. SS obtained [facility] for transportation, transportation scheduled for 1700 with [facility]. ERROL Metzger informed. SS attempted to connect with patient's son Jayson [phone], a message was left. [facility] informed of 1700 ETA.
--- NOTE | 2025-03-02 16:34 | PC.NURSE ---
Report given to Jane SOLIS at [facility].
== END 2025-03-02 18:04 | disposition skilled nursing facility (03) | DRG 522 ==
LOC: SERX 09:53 → SERHOLD 10:14 → S3NX 11:30 → SERHOLD 14:12
PROVIDERS: Student in an Organized Health Care Education/Training Program; Admitting Provider Internal Medicine; Emergency Provider Emergency Medicine; PCP Internal Medicine; Visit Provider Orthopaedic Surgery Adult Reconstructive Orthopaedic Surgery
PROC: 0SRR0JZ Replacement of Right Hip Joint, Femoral Surface with Synthetic Substitute, Open Approach (ICD-10-PCS; CPT 27125; principal; 2025-02-26 12:30)
DX: S72.001A Fracture of unspecified part of neck of right femur, initial encounter for closed fracture (principal); I48.91 Unspecified atrial fibrillation; J44.9 Chronic obstructive pulmonary disease, unspecified; N18.31 Chronic kidney disease, stage 3a; W01.0XXA Fall on same level from slipping, tripping and stumbling without subsequent striking against object, initial encounter; F32.A Depression, unspecified; Z90.710 Acquired absence of both cervix and uterus; D63.1 Anemia in chronic kidney disease; N39.41 Urge incontinence; M19.90 Unspecified osteoarthritis, unspecified site; I48.0 Paroxysmal atrial fibrillation; K59.00 Constipation, unspecified; Z75.1 Person awaiting admission to adequate facility elsewhere; Z79.01 Long term (current) use of anticoagulants; Z79.82 Long term (current) use of aspirin; Z87.891 Personal history of nicotine dependence; Z91.81 History of falling
CPT/HCPCS: 36415; 71045; 73501; 73502; 73552; 73562; 80048; 80053; 80061; 80076; 81001; 83735; 84100; 84443; 85025; 85610; 87081; 93005; 93225; 96374; 97163; A4217; A4649; C1776; J0690; J1644; J2270; J2405; J2704; J3010; J3475; J3490; J7030; J7999; A9270

== ENCOUNTER 2025-03-09 21:01 | Emergency (ER) | payer OTHER, SELFPAY ==
[2025-03-09 21:06] VITALS: BP 116/60; PULSE 62; RESP 19; TEMP 36.9; O2SAT 98
[2025-03-09 21:07] VITALS: PULSE 62; RESP 18; O2SAT 97; BMI 22.9
--- NOTE | 2025-03-09 21:43 | XR_ITS ---
Examination: Duplex scan of the lower extremity, unilateral right Date and time of exam: March 09, 2025 10:29 PM INDICATIONS: Hip surgery one week ago followed by leg swelling today Technique: Duplex scan of the extremity veins using B-mode/grayscale imaging and Doppler spectral analysis and color flow Attention is directed to internal echogenicity, compression and augmentation involving these veins, color flow assessment, spectral analysis Findings: Major deep venous structures in the extremity demonstrate normal course and caliber. There is no evidence of deep vein thrombosis. Normal color flow and spectral analysis Impression: Negative for DVT..
--- NOTE | 2025-03-09 21:43 | XR_ITS ---
Examination: AP chest single view TECHNIQUE: AP portable upright chest single view Date and time: March 09, 2025 2157 hours INDICATIONS: Chest pain today. FINDINGS: Subsegmental atelectasis left base Suspicious for early pneumonia right base Normal heart size No pulmonary edema IMPRESSION: Suspicious for early right basilar pneumonia
--- NOTE | 2025-03-09 21:43 | XR_ITS ---
Examination: CT abdomen with intravenous contrast CT pelvis with intravenous contrast 2-D coronal reconstructions 2-D sagittal reconstructions Date and time of exam:March 10, 2025 0018 hours INDICATIONS:. Onset abdominal pain today CTDI: vol (mGy) 7.79. DLP: (mGycm) 387. Technique: Multiple axial sections of the abdomen and pelvis have been obtained. 64 slice high-resolution scanner used. 3 mm axial sections have been obtained, post intravenous injection of 60 cc [id number]-[id number]. 2-D sagittal, coronal reconstructions obtained. Low dose protocols were performed. One or more of the following dose reduction techniques were used; automated exposure control, adjustment of the mA and/or KV according to patient size, use of iterative reconstruction technique. Findings: Mild pneumonia left base Mild to moderate enlargement cardiac contour Liver irregular in contour Absent gallbladder Spleen is not enlarged No pancreatic mass Aorta in the abdomen is not enlarged No hydronephrosis No bowel obstruction Trace ascites Normal appendix No bowel obstruction Distended urinary bladder No pelvic mass Severe osteopenia Right hip hemiarthroplasty satisfactory alignment Impression : Mild pneumonia left base Cirrhosis versus primary hepatocellular disease Distended urinary bladder, clinical correlation advised No pelvic mass
--- NOTE | 2025-03-09 21:43 | PD.EDABDPN ---
ED Abdominal Pain RME/HPI General Chief Complaint: Nausea/Vomiting/Diarrhea Stated complaint: ABDOMINAL PAIN Time seen by provider: 03/09/25 21:37 Arrival date/time: 03/09/25 21:01 RME / HPI RME / HPI narrative: DR. SAENZ MAIN ED EVALUATION: 84 y/o female with Hx of ... CHAR from [facility] presents to ED c/o intensified abdominal pain with associated vomiting and gassiness x 1 day, but ongoing for about 2 weeks. In addition, patient also presents with RLE swelling s/p recent hemiarhroplasty on 03/02/2025. Patient was given Zofran at [facility] at approximately 20:00. No other concerns or complaints expressed at this time. Related Data Home Medications ?Medication ?Instructions ?Recorded ?Confirmed amiodarone 200 mg tablet 200 mg PO QPM 09/04/18 02/25/25 aspirin 81 mg tablet,delayed 81 mg PO PRN 05/20/19 02/25/25 release (Aspir-) timolol 0.5 % eye drops 1 drp ophthalmic (eye) BID 05/20/19 02/25/25 albuterol 90 mcg/actuation aerosol 90 mcg inhalation PRN PRN 05/09/22 02/25/25 inhaler Shortness Of Breath Or Wheezing ferrous sulfate 325 mg (65 mg 325 mg PO DAILY 05/09/22 02/25/25 iron) capsule,extended release ferrous sulfate 325 mg (65 mg 325 mg PO QDAY 05/09/22 02/25/25 iron) tablet (iron) fluticasone propionate 50 1 spray intranasal HS 05/09/22 02/25/25 mcg/actuation nasal spray,suspension loratadine 10 mg tablet 10 mg PO QDAY 05/09/22 02/25/25 [id number] 8 mg-folic 400 1 tab PO DAILY 05/09/22 02/25/25 mcg-K 50 mcg-lutein 300 mcg tablet (Centrum Silver Women) nitroglycerin 0.4 mg sublingual 0.4 mg buccal 1XD PRN Chest Pain 05/09/22 02/25/25 tablet tizanidine 2 mg tablet 2 mg PO PRN PRN muscle spasticity 05/09/22 02/25/25 vitamin E 400 unit tablet 45 mg PO QDAY 05/09/22 02/25/25 mirabegron 25 mg tablet,extended 25 mg PO QDAY 03/02/23 02/25/25 release 24 hr (Myrbetriq) Previous Rx's ?Medication ?Instructions ?Recorded hydrocodone 5 mg-acetaminophen 325 1 tab PO Q4HR PRN Pain Scale 4-6 02/27/25 mg tablet (Moderate #1 tab Allergies Allergy/AdvReac Type Severity Reaction Status Date / Time Iodine and Iodide Containing AdvReac Mild Rash Verified 03/09/25 21:06 Produc Review of Systems Review of Systems Systems Reviewed: All systems reviewed, normal except as documented Past Medical History Past Medical History CARDIAC: Positive Cardiac Disorders, Angina, Coronary Artery Disease, Atherosclerotic Heart Disease and Edema RESPIRATORY: Positive Chronic Obstructive Pulmonary Disease (COPD) GASTROINTESTINAL: Positive Gastrointestinal Disorders and Gall Bladder Disease REPRODUCTIVE: Positive Previous Pregnancies MUSCULOSKELETAL: Positive Musculoskeletal Disorders, Arthritis and Fractures ENT: Positive Glaucoma OTHER HISTORY: Positive Hospitalization, Shingles, Falls, Chicken Pox and Measles Family History FAMILY HISTORY: Positive Family Respiratory Disorders, Family Cardiac Disorders, Family Gastrointestinal Problems and Family Cancer Surgical History SURGICAL: Positive Cardiac Catheterization, Angiogram, Tonsillectomy, Abdominal Surgery and Hysterectomy ED Exam Narrative Physical exam: Generally patient is alert elderly appearing female in no obvious distress heart is regular rate and rhythm lungs reveal station equal bilaterally abdomen soft bowel sounds present nondistended mild epigastric abdominal tenderness without rebound. Extremities show dressing over the right hip wound from surgery a week ago. She has some asymmetric swelling to the right lower extremity. Course Course Course Narrative: CXR is ordered for determining the etiology of shortness of breath. Quality Measures none Orders Category Date Time Status CT Screening NOW Care 03/09/25 21:[address] abdomen pelvis w con Stat Exams 03/09/25 21:43 Taken US venous doppler LE RT Stat Exams 03/09/25 21:43 Completed XR chest 1V portable Stat Exams 03/09/25 21:43 Completed CBC Stat Lab 03/09/25 23:18 Completed CMP [Comprehensive Metabolic Panel] Stat Lab 03/09/25 23:18 Completed Lipase Stat Lab 03/09/25 23:18 Completed UA [Urinalysis] Stat Lab 03/09/25 23:59 Completed Vital Signs Vital signs: Vital Signs Temperature 98.5 F 03/09/25 21:06 Pulse Rate 62 03/09/25 21:06 Respiratory Rate 19 03/09/25 21:06 Blood Pressure 116/60 03/09/25 21:06 Pulse Oximetry (%) 98 03/09/25 21:06 Oxygen Delivery Method Nasal Cannula 03/09/25 21:06 Oxygen Flow Rate 2 03/09/25 21:06 Abdominal Pain MDM MDM Narrative MDM Narrative:: Scribe Attestation: I, Nilam Barrera, am scribing for and in the presence of Dr. Saenz. Provider Notation: Although this document has been carefully reviewed, there may still be some phonetic and other typographical errors.? These errors are purely grammatical due to imperfections in the software program and should not be construed in any way to? compromise the substance of the patient's medical care during this visit. I interpreted all labs. There is no significant abnormality. Chest x-ray showed the possibility of a developing right lung pneumonia versus atelectasis. Patient does not have cough. No leukocytosis. No fever. There is no clinical signs of pneumonia. Doppler ultrasound to the right lower extremity showed no evidence of DVT. CT scan done of the abdomen pelvis with IV contrast showed no acute abnormality or inflammatory change. Patient has not vomited here in the emergency room. Patient is stable for discharge. Patient data External records reviewed:: [facility] previous records (Reviewed prior ED records from 02/25/25. Patient was seen for Closed displaced fracture of right femoral neck.), EMS form and Jail records Clinical information provided by:: patient and EMS Social determinants that could affect healthcare access:: housing (SNF) Patient has the following chronic illnesses:: Angina, Coronary Artery Disease, Atherosclerotic Heart Disease, Edema, Chronic Obstructive Pulmonary Disease (COPD), Gall Bladder Disease, Arthritis and Fractures How is presenting disease/condition affected by chronic disease/condition?: exacerbated by Evaluation data The following diagnostics were reviewed and interpreted by me:: lab results and radiology exam(s) Lab and/or radiology exams considered but not ordered:: None Interpretation Summary: RADIOLOGY Chest X-Ray: FINDINGS: Subsegmental atelectasis left base Suspicious for early pneumonia right base Normal heart size No pulmonary edema IMPRESSION: Suspicious for early right basilar pneumonia Abdomen/Pelvis CT: Venous Doppler: Findings: Major deep venous structures in the extremity demonstrate normal course and caliber. There is no evidence of deep vein thrombosis. Normal color flow and spectral analysis Impression: Negative for DVT. Medications / Prescriptions Medications or Prescriptions considered but not ordered:: None Medication administrations:: See above if any Consultations Consultation(s) initiated? (list below): No Diagnosis Differential diagnosis abdominal pain: abdominal pain, calculus of kidney, constipation, diverticulitis, gastroenteritis, pancreatitis and small bowel obstruction Most likely diagnosis given after review of the tests above:: None Admission Indicated Admission indicated?: not indicated Admission Request Was there a request for admission?: No Disposition Plan Disposition Plan: Discharge Discharge Attestation Discharge Attestation: The patient and all family members were given an opportunity to ask questions and understood the discharge instructions. Discharge instructions specifically effects, indications for sooner follow up or return to the emergency department, and the expected course of current diagnosis. Patient condition: Stable Discharge Plan Plan Patient Disposition: Xfer Skilled Nsg Fac (SNF) Prescriptions/Referrals Prescriptions/Med Rec: No Action Myrbetriq 25 mg tablet extended release 24 hr 25 mg PO QDAY amiodarone 200 mg Tablet 200 mg PO QPM aspirin [Aspir-81] 81 mg Tablet,Delayed Release (Dr/Ec) 81 mg PO PRN timolol 0.5 % Drops 1 drp OPHTHALMIC (EYE) BID hydrocodone-acetaminophen 5-325 mg Tablet 1 tab PO Q4HR MDD 4 PRN (Reason: Pain Scale 4-6 (Moderate) Qty: 1 0RF nitroglycerin 0.4 mg Tablet, Sublingual 0.4 mg BUCCAL 1XD PRN (Reason: Chest Pain) fluticasone propionate 50 mcg/actuation [place],Suspension 1 spray INTRANASAL HS Rx Instructions: administer into each nostril ferrous sulfate 325 mg (65 mg iron) Capsule, Extended Release 325 mg PO DAILY tizanidine 2 mg Tablet 2 mg PO PRN PRN (Reason: muscle spasticity) Centrum Silver Women 8 mg iron-400 mcg-300 mcg Tablet 1 tab PO DAILY ferrous sulfate [iron] 325 mg (65 mg iron) Tablet 325 mg PO QDAY vitamin E 400 unit Tablet 45 mg PO QDAY albuterol 90 mcg/actuation Aerosol 90 mcg INHALATION PRN PRN (Reason: Shortness Of Breath Or Wheezing) loratadine 10 mg Tablet 10 mg PO QDAY Referrals: Fabien Lovett MD [Primary Care Provider] - In 1 week Problem List Clinical Impression: Abdominal pain Patient/Caregiver Discharge Instructions Additional Instructions: CT scan done of the abdomen showed no acute abnormality. Doppler ultrasound to the right lower extremity showed no evidence of DVT. Continue current outpatient management. Print Language: Yoruba Stand Alone Forms: Kateryna Award Info., Patient Portal Info Letter
[2025-03-09 23:33] LABS: Basophils # (Auto) 0.0 Thou/mm3 (0.0-0.2); Basophils % (Auto) 0 % (0-2.5); Eosinophils # (Auto) 0.0 Thou/mm3 (0.0-0.5); Eosinophils % (Auto) 0 % (0-10); Hematocrit 30.2 % (36.0-46.0); Hemoglobin 10.0 g/dL (12.0-16.0); Immature Granulocytes Auto 0.07 Thou/mm3 (0.00-0.00); Lymphocytes # (Auto) 1.3 Thou/mm3 (1.0-4.8); Lymphocytes % (Auto) 12 % (10-50); Mean Corpuscular HGB Conc 33.1 g/dl (31.0-37.0); Mean Corpuscular Hemoglobin 32.3 pg (25.0-35.0); Mean Corpuscular Volume 97 fL (80-100); Monocytes # (Auto) 0.6 Thou/mm3 (0.0-0.8); Monocytes % (Auto) 5 % (0-12); Neutrophils # (Auto) 9.1 Thou/mm3 (1.8-7.7); Neutrophils % (Auto) 82 % (37-80); Nucleated Red Blood Cell # 0.00 Thou/mm3 (0.00-0.00); Nucleated Red Blood Cell % 0 /100 WBC (0); Platelet Count 320 Thou/mm3 (140-440); RDW Standard Deviation 47.8 fL (36.4-46.3); Red Blood Count 3.10 Miln/mm3 (4.00-5.20); White Blood Count 11.1 Thou/mm3 (3.6-11.0)
[2025-03-09 23:51] LABS: Alanine Aminotransferase 23 U/L (10-49); Albumin, Serum 3.5 gm/dL (3.4-4.8); Albumin/Globulin Ratio 1.6 (1.2-2.2); Alkaline Phosphatase 71 U/L (46-116); Anion Gap 6 (7-16); Aspartate Amino Transferase 27 U/L (0-34); BUN/Creatinine Ratio 14 Ratio (12-20); Bilirubin,Total 0.5 mg/dL (0.3-1.2); Blood Urea Nitrogen 11 mg/dL (9-23); Calcium 9.1 mg/dL (8.3-10.6); Calcium (Corrected) 9.5 mg/dL (8.5-10.1); Carbon Dioxide 29.0 mMol/L (20.0-31.0); Chloride 101 mMol/L (98-107); Creatinine (Component) 0.8 mg/dL (0.6-1.3); Estimated Creatinine Clearance 45.4 mL/min (>60); Globulin 2.2 gm/dL (2.3-3.5); Glucose 136 mg/dL (74-106); Lipase 28 U/L (12-53); Osmolality,Calculated 273 (275-295); Potassium 4.4 mMol/L (3.4-5.1); Sodium 136 mMol/L (136-145); Total Protein 5.7 gm/dL (5.7-8.2); eGFR > 60 See Note
[2025-03-10 00:05] VITALS: BP 128/63; PULSE 60; RESP 16; O2SAT 100
[2025-03-10 00:33] LABS: Collection Type, Urine Catheter; Squamous Epithelial Cell,Urine 0 /hpf (0-5)
[2025-03-10 00:36] LABS: Bilirubin,Urine Negative (Negative); Blood,Urine Negative (Negative); Clarity,Urine Clear (Clear/Hazy); Color,Urine Lt-Yellow (Lt Yel-Yel); Glucose, Urine Negative (Negative); Ketones,Urine Negative (Negative); Leukocyte Esterase,Urine Negative (Negative); Nitrite,Urine Negative (Negative); PH,Urine 7.0 (5.0-7.0); Protein,Urine Negative (Neg - Trace); RBC,Urine 1 /hpf (0-3); Specific Gravity,Urine 1.010 (1.001-1.035); Urobilinogen,Urine Negative mg/dL (0.0-1.0); WBC,Urine 1 /hpf (0-5)
[2025-03-10 01:16] VITALS: BP 112/58; PULSE 63; RESP 16; TEMP 36.8; O2SAT 95
--- NOTE | 2025-03-10 01:26 | PRELIM_ITS ---
CT scan of the abdomen and pelvis with intravenous contrast (axial sections with sagittal and coronal reformats) March 10, 2025 at 0018 hours Clinical History: Abdominal pain. Comparison: No prior study is available for comparison. Findings: Mild bilateral lung consolidation, atelectasis versus pneumonia. The pancreas, spleen, kidneys and adrenals are unremarkable. Status postcholecystectomy. No biliary duct dilation. Hepatomegaly. Mild irregular liver margins. No evidence of bowel obstruction.The appendix is within normal limits. Scattered air-fluid levels in the small bowel without dilation or wall thickening. There is no mesenteric or retroperitoneal adenopathy. The urinary bladder is unremarkable. There is no free fluid or free air. Degenerative changes of the imaged portions of the spine. Chronic multilevel disc disease. No acute fractures. Status post right hip replacement. Vascular calcifications. Diverticulosis of the colon. Impression: 1. Probable cirrhosis. 2. Possible mild enteritis. 3. Mild bilateral lung consolidation, atelectasis versus pneumonia. Report Electronically Signed By: Wes Flores 03/10/2025 1:25:20 AM [EST]
[2025-03-10 02:33] VITALS: BP 108/65; PULSE 60; RESP 18; TEMP 36.7; O2SAT 99
--- NOTE | 2025-03-10 02:35 | PC.NURSE ---
[facility]
== END 2025-03-10 02:37 | disposition skilled nursing facility (03) ==
PROVIDERS: Emergency Provider Emergency Medicine; PCP Family Medicine
DX: R10.9 Unspecified abdominal pain (principal); R07.9 Chest pain, unspecified; M79.89 Other specified soft tissue disorders; Z98.890 Other specified postprocedural states
CPT/HCPCS: 36415; 71045; 74177; 80053; 81001; 83690; 85025; 93971; 99283; A4649; Q9967

== ENCOUNTER 2025-03-11 08:26 | Outpatient (AMB) | payer OTHER, SELFPAY ==
--- NOTE | 2025-03-11 08:49 | PD.ORTHCLVIS ---
Vital signs 03/11/25 08:50 Height 1.65 m Height Method Stated BP 103/59 L Blood Pressure Source Automatic Cuff Blood Pressure Location Right Upper Arm Position Sitting Respiration 18 Pulse 56 L Pulse Source Monitor Temp 97.1 F Temp Source Temporal Artery Scan Pulse Oximetry (%) 97 Oxygen Delivery Method Room Air Med/Allergies Allergies & Medications Allergies Iodine and Iodide Containing Produc Adverse Reaction (Mild, Verified 03/11/25 08:51) Rash Medication Reconciliation amiodarone 200 mg tablet 200 mg PO QPM 09/04/18 [History Confirmed 03/11/25] aspirin 81 mg tablet,delayed release (Aspir-) 81 mg PO PRN 05/20/19 [History Confirmed 03/11/25] timolol 0.5 % eye drops 1 drp ophthalmic (eye) BID 05/20/19 [History Confirmed 03/11/25] albuterol 90 mcg/actuation aerosol inhaler 90 mcg inhalation PRN PRN Shortness Of Breath Or Wheezing 05/09/22 [History Confirmed 03/11/25] ferrous sulfate 325 mg (65 mg iron) capsule,extended release 325 mg PO DAILY 05/09/22 [History Confirmed 03/11/25] ferrous sulfate 325 mg (65 mg iron) tablet (iron) 325 mg PO QDAY 05/09/22 [History Confirmed 03/11/25] fluticasone propionate 50 mcg/actuation nasal spray,suspension 1 spray intranasal HS 05/09/22 [History Confirmed 03/11/25] loratadine 10 mg tablet 10 mg PO QDAY 05/09/22 [History Confirmed 03/11/25] hpobeour-wqgf-fxsl 8 mg-folic 400 mcg-K 50 mcg-lutein 300 mcg tablet (Centrum Silver Women) 1 tab PO DAILY 05/09/22 [History Confirmed 03/11/25] nitroglycerin 0.4 mg sublingual tablet 0.4 mg buccal 1XD PRN Chest Pain 05/09/22 [History Confirmed 03/11/25] tizanidine 2 mg tablet 2 mg PO PRN PRN muscle spasticity 05/09/22 [History Confirmed 03/11/25] vitamin E 400 unit tablet 45 mg PO QDAY 05/09/22 [History Confirmed 03/11/25] mirabegron 25 mg tablet,extended release 24 hr (Myrbetriq) 25 mg PO QDAY 03/02/23 [History Confirmed 03/11/25] hydrocodone 5 mg-acetaminophen 325 mg tablet 1 tab PO Q4HR PRN Pain Scale 4-6 (Moderate #1 tab 02/27/25 [Rx Confirmed 03/11/25] Exam Exam Patient is in no acute distress and is cooperative with the examination today. Patient has a normal mood and affect. Breathing is nonlabored. In no respiratory distress. Bilateral extremities were evaluated and demonstrates sensation intact to light touch. Palpable pedal pulses are present. No significant edema is present. Right hip incision is clean dry intact Assessment and Plan Problem List (1) Closed fracture of lateral portion of tibial plateau: Status: Acute Plan: Patient is an 83-year-old female who is doing well with a right hip hemiarthroplasty. We will see her back in approximately 4 weeks. Will get new x-rays I will see the patient back for new x-rays Advanced Care Planning Discussion Advance care planning discussed with:: patient Office Procedures GNS Level of Care Nursing/Assessment Patient Status: Established Patient Nursing Assessment/Reassesment: Medication Reconciliation, Update PMH in EMR and Vital Signs Coordination of Care: Complex Care and Chronic Disease 1-5, Education Complex Pt/Fam, Consent,records obtained, informed consent, Lab and Imaging orders, Results/Orders obtained and Staff clarify orders Established Patient Charge Established Patient Point Assignment: 110 Established Patient Point Charge: EP Level 3 (80-115) MA Intake Visit Data Collection New Patient or Established: Established Patient (seen at [facility] within 3 years) Reason for Visit:: 2 WEEK POST OP LEFT LUIS Seen by Clinical Staff ONLY (RN/MA): No School Resource Officer Required: No PCP or OBGYN visit in last 3 months: Yes Hx Now: No Do You Feel Safe at Home: Yes Authorities Contacted: N/A Questionairres Past Medical History Past Medical History Have you ever been diagnosed with any of the following: Neurological Problems Cerebrovascular Accident (CVA): No Transient Ischemic Attacks (TIA): No Dementia: No Alzheimer's Disease: No Parkinson's Disease: No Brain Tumor: No Meningitis: No Seizures: No Epilepsy: No Multiple Sclerosis: No Cerebral Palsy: No Amyotrophic Lateral Sclerosis (ALS/Sarah Gehrig's): No Guillain-[place] Syndrome: No Spina Bifida: No Paralysis: No Peripheral Neuropathy: No Perez's Palsy: No Subdural Hematoma: No Migraine: No Head Trauma: No Spinal Cord Injury: No Traumatic Brain Injury: No Cardiology Problems Myocardial Infarction: No Cardiac Arrhythmia: No Atrial Fibrillation: No Angina: Yes Heart Murmur: No Coronary Artery Disease: Yes Atherosclerotic Heart Disease: Yes Peripheral Vascular Disease: No Hypercholesterolemia: No Aneurysm: No Congestive Heart Failure: No Congenital Heart Disease: No Valvular Heart Disease: No Rheumatic Fever: No Cardiomyopathy: No Edema: Yes Pericarditis: No Cellulitis: No Deep Vein Thrombosis: No Hypertension: No Hypotension: No Varicose Veins: No Respiratory Problems Chronic Obstructive Pulmonary Disease (COPD): Yes Asthma: No Bronchitis: No Emphysema: No Pneumonia: No Pulmonary Fibrosis: No Tuberculosis: No Pulmonary Embolism: No Pulmonary Edema: No Sleep Apnea: No Stomache/Intestinal Problems Hepatitis: No Cirrhosis: No Pancreatitis: No Celiac Disease: No Gall Bladder Disease: Yes Gastrointestinal Bleed: No Esophageal Varices: No Munoz's Esophagus: No Colitis: No Ulcerative Colitis: No Diverticulitis: No Diverticulosis: No Ulcer: No Colorectal Cancer: No Irritable Bowel: No Crohn's Disease: No Obstructive Bowel: No Hiatal Hernia: No Hemorrhoids: No Gastroesophageal Reflux Disease: No Obesity: No Genital/Urinary Problems Renal Disease: No Kidney Stones: No Polycystic Kidney Disease: No Neurogenic Bladder: No Inguinal Hernia: No Dialysis: No Reproductive Problems Breast Cancer: No Endometriosis: No Genital Herpes: No Gonorrhea: No Pelvic Inflammatory Disease: No Previous Pregnancies: Yes Syphilis: No Uterine Prolapse: No Musculoskeletal Problems Muscular Dystrophy: No Myasthenia Gravis: No Marfan's Syndrome: No Bone Cancer: No Arthritis: Yes Rheumatoid Arthritis: No Osteoporosis: No Degenerative Disk Disease: No Gout: No Scoliosis: No Carpal Tunnel Syndrome: No Fibromyalgia: No Fractures: Yes Degenerative Joint Disease: No Osteomyelitis: No Poliovirus: No Head,Eye,Nose,Throat Problems Cataracts: No Glaucoma: Yes Blind: No Retinal Detachment: No Macular Degeneration: No Chronic Ear Infections: No Deafness: No Eye Prosthesis: No Endocrine Problems Diabetes Mellitus Type 1: No Diabetes Mellitus Type 2: No Hypoglycemia: No Rere's Syndrome: No Ryne's Disease: No Hyperthyroidism: No Hypothyroidism: No Parathyroid Disease: No Pituitary Disease: No Systemic Lupus Erythematosus: No Syndrome of Inappropriate Antidiuretic Hormone: No Adrenal Disease: No Graves' Disease: No Blood Problems Anemia: No Leukemia: No Hemophilia: No Thalassemia: No Sickle Cell Disease: No Psychologic Problems Schizophrenia: No Recreational Drug Use: No Bipolar Disorder: No Depression: No Anxiety: No Behavior Problems: No Self-Mutilation: No Attention Deficit Disorder: No Attention Deficit Hyperactivity Disorder: No Depression: No Post Traumatic Stress Disorder: No Eating Disorder: No Other Problems Hospitalization: Yes Down Syndrome: No Autism: No Developmental Delay: No Shingles: Yes Falls: Yes Blood Transfusions: No Blood Transfusion Reaction: No Anesthesia Reactions: No Organ Transplant: No Chemotherapy: No Radiation Therapy: No Hyperbaric Therapy: No MRSA: No Vancomycin-Resistant Enterococci: No Human Immunodeficiency Virus (HIV): No Chicken Pox: Yes Measles: Yes Mumps: No Rubella (Lithuanian Measles): No Pertussis: No Clostridium Difficile: No Cancer: No Cervical Cancer: No Lung Cancer: No Ovarian Cancer: No Surgical History Carotid Endarterectomy: No Coronary Artery Bypass Graft: No Valve Replacement: No Hysterectomy: Yes Pacemaker: No Thyroidectomy: No Subjective Visit Visit for: follow up visit, post op #1 and hip Immunization / Flu Flu Vaccine in the Last 12 Months: Yes Flu Vaccine Exclusion Criteria: Already Received History of Present Illness Chief complaint: 2 WEEK POST OP right LUIS Urinary patient is an 84-year-old female with right hip pain status post right hip hemiarthroplasty replacement. She is doing well. Personal History Red flag PMH: none BMI Counceling provided: No Pain Pain level (0-10): 1 Pain location: buttock Pain quality: dull Ambulatory data Ambulatory device: other (specify) (WHEELCHAIR) Treatments Improvement with previous injections: No Improvement with PT: No Improvement with NSAIDS: no Review of Systems Review of Systems: All systems negative unless otherwise noted in HPI.
[2025-03-11 08:50] VITALS: BP 103/59; PULSE 56; RESP 18; TEMP 36.2; O2SAT 97
== END 2025-03-11 09:05 | disposition home or self-care (01) ==
LOC: HODSRG 08:26
PROVIDERS: PCP Internal Medicine; Referring Provider Internal Medicine; Supervising Provider Orthopaedic Surgery Adult Reconstructive Orthopaedic Surgery; Visit Provider Orthopaedic Surgery Adult Reconstructive Orthopaedic Surgery
DX: S82.143D Displaced bicondylar fracture of unspecified tibia, subsequent encounter for closed fracture with routine healing (principal); X58.XXXD Exposure to other specified factors, subsequent encounter; Z96.642 Presence of left artificial hip joint; I25.10 Atherosclerotic heart disease of native coronary artery without angina pectoris; J44.9 Chronic obstructive pulmonary disease, unspecified; M25.551 Pain in right hip
CPT/HCPCS: 99213; G0463

== ENCOUNTER 2025-03-23 11:23 | Emergency (ER) | payer OTHER, SELFPAY ==
[2025-03-23 11:32] VITALS: BP 128/71; PULSE 67; RESP 20; TEMP 36.5; O2SAT 96; BMI 20.2
--- NOTE | 2025-03-23 12:29 | XR_ITS ---
Examination: AP chest single view Technique one AP portable semiupright chest single view Date and time: March 23, 2025 1315 hours Comparison March 09, 2025 INDICATIONS: Chest pain and weakness today. FINDINGS: Normal heart size No pneumonia or pulmonary edema Ectatic thoracic aorta. Significant osteopenia Minor atelectasis or scarring at the left base IMPRESSION: No active disease
--- NOTE | 2025-03-23 12:29 | EKG_ITS ---
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
--- NOTE | 2025-03-23 12:30 | XR_ITS ---
Examination: Venous duplex lower extremity sonogram, bilateral. Date and time of exam: March 23, 2025, 1244 hours INDICATION: Right hip fracture injury one month ago followed by bilateral leg swelling Technique: Multiple sonographic images of the deep venous system have been obtained. B-mode/2-D grayscale imaging of vascular structures and Doppler spectral analysis (waveforms) and color performed Both legs are examined. Findings: Deep venous systems do not demonstrate abnormal echogenicity. All visualized deep veins exhibit compressibility. All visualized deep veins exhibit augmentation. Impression: Negative for deep vein thrombosis
--- NOTE | 2025-03-23 12:31 | PD.EDWEAK ---
ED Weakness RME/HPI General Chief complaint: Flu Like Symptoms Stated complaint: COVID + X1 WEEK, PATIENT SHORT OF BREATH AND WEAK Time Seen by Provider: 03/23/25 12:05 Arrival date/time: 03/23/25 11:23 This is an 84-year-old female that comes into the emergency room with complaint of weakness,, congestion, nausea, and bilateral leg swelling. Patient reports that she was recently discharged from a rehab facility 5 days ago. Patient recently had a hip replacement. Patient states her hip replacement on the right side was approximately 1 week ago. Patient denies chest pain and shortness of breath. Per patient son at bedside patient has not been getting up and walking very much and at baseline does not eat very much. Patient was diagnosed with COVID while she was at the facility. They do not know if patient's symptoms are secondary to COVID. Patient does have a history of anemia, high blood pressure, atrial fibrillation, CKDIII, COPD on 2L at home, and depression. Related Data Home Medications ?Medication ?Instructions ?Recorded ?Confirmed amiodarone 200 mg tablet 200 mg PO QPM 09/04/18 03/11/25 aspirin 81 mg tablet,delayed 81 mg PO PRN 05/20/19 03/11/25 release (Aspir-) timolol 0.5 % eye drops 1 drp ophthalmic (eye) BID 05/20/19 03/11/25 albuterol 90 mcg/actuation aerosol 90 mcg inhalation PRN PRN 05/09/22 03/11/25 inhaler Shortness Of Breath Or Wheezing ferrous sulfate 325 mg (65 mg 325 mg PO DAILY 05/09/22 03/11/25 iron) capsule,extended release ferrous sulfate 325 mg (65 mg 325 mg PO QDAY 05/09/22 03/11/25 iron) tablet (iron) fluticasone propionate 50 1 spray intranasal HS 05/09/22 03/11/25 mcg/actuation nasal spray,suspension loratadine 10 mg tablet 10 mg PO QDAY 05/09/22 03/11/25 [id number] 8 mg-folic 400 1 tab PO DAILY 05/09/22 03/11/25 mcg-K 50 mcg-lutein 300 mcg tablet (Centrum Silver Women) nitroglycerin 0.4 mg sublingual 0.4 mg buccal 1XD PRN Chest Pain 05/09/22 03/11/25 tablet tizanidine 2 mg tablet 2 mg PO PRN PRN muscle spasticity 05/09/22 03/11/25 vitamin E 400 unit tablet 45 mg PO QDAY 05/09/22 03/11/25 mirabegron 25 mg tablet,extended 25 mg PO QDAY 03/02/23 03/11/25 release 24 hr (Myrbetriq) Previous Rx's ?Medication ?Instructions ?Recorded hydrocodone 5 mg-acetaminophen 325 1 tab PO Q4HR PRN Pain Scale 4-6 02/27/25 mg tablet (Moderate #1 tab amoxicillin 875 mg-potassium 1 tab PO Q12H #10 tabs 04/06/25 clavulanate 125 mg tablet Allergies Allergy/AdvReac Type Severity Reaction Status Date / Time No Known Allergies Allergy Verified 04/06/25 12:41 Review of Systems Review of Systems Systems Reviewed: All systems reviewed, normal except as documented Past Medical History Past Medical History CARDIAC: Positive Cardiac Disorders, Angina, Coronary Artery Disease, Atherosclerotic Heart Disease and Edema RESPIRATORY: Positive Chronic Obstructive Pulmonary Disease (COPD) GASTROINTESTINAL: Positive Gastrointestinal Disorders and Gall Bladder Disease REPRODUCTIVE: Positive Previous Pregnancies MUSCULOSKELETAL: Positive Musculoskeletal Disorders, Arthritis and Fractures ENT: Positive Glaucoma OTHER HISTORY: Positive Hospitalization, Shingles, Falls, Chicken Pox and Measles Family History FAMILY HISTORY: Positive Family Respiratory Disorders, Family Cardiac Disorders, Family Gastrointestinal Problems and Family Cancer Surgical History SURGICAL: Positive Cardiac Catheterization, Angiogram, Tonsillectomy, Abdominal Surgery and Hysterectomy ED Exam Narrative Physical exam: VITAL SIGNS: Reviewed. GENERAL APPEARANCE: Alert and interactive, follows commands, no acute distress, HEAD AND FACE: Non-traumatic. ENT: PERRL, conjuctiva pink and clear, eyelid no trauma, Mucous membrane moist. NECK: Supple, nontender, no nuchal rigidity. CHEST: No tenderness, no crepitus, no paradoxical movement, no retractions. LUNGS: Clear, well ventilated, symmetric, no rales, no wheezing, no rhonchi, no stridor, good breath sounds bilaterally. HEART: Regular rate, regular rhythm, no murmur, no gallops. ABDOMEN: Soft, nondistended, no guarding, nontender, no rebound, no masses, NEUROLOGICAL: Gross motor function intact sensory function intact, Appropriate for age. MUSCULOSKELETAL: low back nontender, full range of motion. EXTREMITIES: No erythema but +2 pitting edema bilateral foot and leg. Distal neurovascular status intact bilateral foot SKIN: Color pink, dry, no rash, no lacerations Course Quality Measures none Orders Category Date Time Status Bedside COVID-19 Antigen Test NOW Care 03/23/25 12:29 Completed Bedside Influenza A&B Antigen Test NOW Care 03/23/25 12:29 Completed EKG (ED ONLY) *Do not use* NOW Care 03/23/25 12:29 Completed Insert IV NOW Care 03/23/25 12:49 Completed EKG (ED Only) Stat Exams 03/23/25 12:29 Draft US venous doppler LE BI Stat Exams 03/23/25 12:30 Completed XR chest 1V Stat Exams 03/23/25 12:29 Completed BNP [B-Type Natriuretic Peptide] Stat Lab 03/23/25 15:03 Completed CBC Stat Lab 03/23/25 15:03 Completed Comprehensive Metabolic Panel Stat Lab 03/23/25 15:03 Completed Troponin I Stat Lab 03/23/25 15:03 Completed Urinalysis, C/S if Indicated Stat Lab 03/23/25 13:47 Completed Vital Signs Vital signs: Vital Signs Temperature 97.7 F 03/23/25 11:32 Pulse Rate 67 03/23/25 11:32 Respiratory Rate 20 03/23/25 11:32 Blood Pressure 128/71 03/23/25 11:32 Pulse Oximetry (%) 96 03/23/25 11:32 Oxygen Delivery Method Room Air 03/23/25 11:32 PROCEDURES: EKG Interpretation #1: Date of EK03/23/25 Time of EK:31 Rate: 59 Interpretation: Interpreted by me (sinus rhythm ) EKG Impression: No ectopy, Normal QRS and Normal intervals Weakness MDM Narrative MDM Narrative:: Labs reviewed CBC unremarkable for the most part. Hemoglobin is 11 hematocrit 72.6. White count is 4.8. Per son patient has chronic kidney disease. Renal function appears to be slowing. BNP was 66 troponin was less than 0.020 urinalysis was unremarkable Venous Doppler done: Impression: Negative for deep vein thrombosis chest x ray shows: FINDINGS: Normal heart size No pneumonia or pulmonary edema Ectatic thoracic aorta. Significant osteopenia Minor atelectasis or scarring at the left base IMPRESSION: No active disease I spoke to patient son at length. Swelling to lower extremities is acutally better thaqn previous. Theres a question if patient is taking lasix or not. Patient son will review pt medications because she used to take this medication byut they are not sure if she is taking it now. Son states they will follow up with pmd tomorrow. Pt given a sandwich and juice while she was here. Dragon dictation: Although this document has been carefully reviewed, there may still be some phonetic and other typographical errors. These errors are purely grammatical due to imperfections in the software program and should not be construed in any way to compromise the substance of the patient's medical care during this visit. Patient data External records reviewed:: [facility] previous records Clinical information provided by:: patient Social determinants that could affect healthcare access:: none Patient has the following chronic illnesses:: see hpi How is presenting disease/condition affected by chronic disease/condition?: exacerbated by Evaluation data The following diagnostics were reviewed and interpreted by me:: lab results, radiology exam(s) and EKG tracing(s) Lab and/or radiology exams considered but not ordered:: none Interpretation Summary: see note Medications / Prescriptions Medications or Prescriptions considered but not ordered:: none Medication administrations:: none Consultations Consultation(s) initiated? (list below): No Diagnosis Weakness Differential Diagnosis: acute myocardial infarction and dehydration (chf, dependant edema ) Most likely diagnosis given after review of the tests above:: dependant edema Admission Indicated Admission indicated?: not indicated Admission Request Was there a request for admission?: No Disposition Plan Disposition Plan: Discharge Discharge Attestation Discharge Attestation: The patient and all family members were given an opportunity to ask questions and understood the discharge instructions. Discharge instructions specifically effects, indications for sooner follow up or return to the emergency department, and the expected course of current diagnosis. Patient condition: Stable Discharge Plan Plan Patient Disposition: HOME (Self Care) Patient condition on transfer: Stable Prescriptions/Referrals Prescriptions/Med Rec: No Action Myrbetriq 25 mg tablet extended release 24 hr 25 mg PO QDAY amiodarone 200 mg Tablet 200 mg PO QPM aspirin [Aspir-81] 81 mg Tablet,Delayed Release (Dr/Ec) 81 mg PO PRN timolol 0.5 % Drops 1 drp OPHTHALMIC (EYE) BID hydrocodone-acetaminophen 5-325 mg Tablet 1 tab PO Q4HR MDD 4 PRN (Reason: Pain Scale 4-6 (Moderate) Qty: 1 0RF amoxicillin-pot clavulanate 875-125 mg tablet 1 tab PO Q12H Qty: 10 0RF nitroglycerin 0.4 mg Tablet, Sublingual 0.4 mg BUCCAL 1XD PRN (Reason: Chest Pain) fluticasone propionate 50 mcg/actuation [place],Suspension 1 spray INTRANASAL HS Rx Instructions: administer into each nostril ferrous sulfate 325 mg (65 mg iron) Capsule, Extended Release 325 mg PO DAILY tizanidine 2 mg Tablet 2 mg PO PRN PRN (Reason: muscle spasticity) Centrum Silver Women 8 mg iron-400 mcg-300 mcg Tablet 1 tab PO DAILY ferrous sulfate [iron] 325 mg (65 mg iron) Tablet 325 mg PO QDAY vitamin E 400 unit Tablet 45 mg PO QDAY albuterol 90 mcg/actuation Aerosol 90 mcg INHALATION PRN PRN (Reason: Shortness Of Breath Or Wheezing) loratadine 10 mg Tablet 10 mg PO QDAY Referrals: No Primary/Family,Physician [Primary Care Provider] - In 1 week Problem List Clinical Impression: COVID-19, Leg edema Patient/Caregiver Discharge Instructions Discharge Activity: activity as tolerated Education Materials: 2019-nCoV Additional Instructions: Follow up with primary provider in 1-2 days. Come back to ED if symptoms change or worsen Print Language: Icelandic Stand Alone Forms: Kateryna Award Info., Patient Portal Info Letter PA/SUPERVISING NURSE Supervising Physician PA/SUPERVISING NURSE Supervising Physician: nato
[2025-03-23 14:16] LABS: Collection Type, Urine Voided
[2025-03-23 14:27] LABS: Bilirubin,Urine Negative (Negative); Blood,Urine Negative (Negative); Clarity,Urine Clear (Clear/Hazy); Color,Urine Lt-Yellow (Lt Yel-Yel); Culture Indicated,Urine Not Indicated; Glucose, Urine Negative (Negative); Ketones,Urine Negative (Negative); Leukocyte Esterase,Urine Negative (Negative); Nitrite,Urine Negative (Negative); PH,Urine 7.5 (5.0-7.0); Protein,Urine Negative (Neg - Trace); RBC,Urine 2 /hpf (0-3); Specific Gravity,Urine 1.009 (1.001-1.035); Squamous Epithelial Cell,Urine 2 /hpf (0-5); Urobilinogen,Urine Negative mg/dL (0.0-1.0); WBC,Urine 1 /hpf (0-5)
[2025-03-23 15:14] VITALS: BP 121/71; PULSE 59; RESP 16; TEMP 36.6; O2SAT 97
[2025-03-23 15:23] LABS: Basophils # (Auto) 0.0 Thou/mm3 (0.0-0.2); Basophils % (Auto) 0 % (0-2.5); Eosinophils # (Auto) 0.0 Thou/mm3 (0.0-0.5); Eosinophils % (Auto) 0 % (0-10); Hematocrit 32.6 % (36.0-46.0); Hemoglobin 11.0 g/dL (12.0-16.0); Immature Granulocytes Auto 0.01 Thou/mm3 (0.00-0.00); Lymphocytes # (Auto) 2.3 Thou/mm3 (1.0-4.8); Lymphocytes % (Auto) 47 % (10-50); Mean Corpuscular HGB Conc 33.7 g/dl (31.0-37.0); Mean Corpuscular Hemoglobin 32.0 pg (25.0-35.0); Mean Corpuscular Volume 95 fL (80-100); Monocytes # (Auto) 0.4 Thou/mm3 (0.0-0.8); Monocytes % (Auto) 9 % (0-12); Neutrophils # (Auto) 2.1 Thou/mm3 (1.8-7.7); Neutrophils % (Auto) 43 % (37-80); Nucleated Red Blood Cell # 0.00 Thou/mm3 (0.00-0.00); Nucleated Red Blood Cell % 0 /100 WBC (0); Platelet Count 253 Thou/mm3 (140-440); RDW Standard Deviation 45.2 fL (36.4-46.3); Red Blood Count 3.44 Miln/mm3 (4.00-5.20); White Blood Count 4.8 Thou/mm3 (3.6-11.0)
[2025-03-23 16:03] LABS: Alanine Aminotransferase 32 U/L (10-49); Albumin, Serum 3.9 gm/dL (3.4-4.8); Albumin/Globulin Ratio 1.8 (1.2-2.2); Alkaline Phosphatase 86 U/L (46-116); Anion Gap 10 (7-16); Aspartate Amino Transferase 31 U/L (0-34); BUN/Creatinine Ratio 8 Ratio (12-20); Bilirubin,Total 0.4 mg/dL (0.3-1.2); Blood Urea Nitrogen 8 mg/dL (9-23); Calcium 9.3 mg/dL (8.3-10.6); Calcium (Corrected) 9.4 mg/dL (8.5-10.1); Carbon Dioxide 29.9 mMol/L (20.0-31.0); Chloride 97 mMol/L (98-107); Creatinine (Component) 1.0 mg/dL (0.6-1.3); Estimated Creatinine Clearance 35.3 mL/min (>60); Globulin 2.2 gm/dL (2.3-3.5); Glucose 101 mg/dL (74-106); Osmolality,Calculated 272 (275-295); Potassium 3.9 mMol/L (3.4-5.1); Sodium 137 mMol/L (136-145); Total Protein 6.1 gm/dL (5.7-8.2); Troponin I < 0.020 ng/mL (0.0-0.045); eGFR 55 See Note
[2025-03-23 16:23] VITALS: BP 136/75; PULSE 61; RESP 19; TEMP 36.6; O2SAT 95
[2025-03-23 16:30] LABS: B-Type Natriuretic Peptide 66 pg/mL (0-100)
[2025-03-23 17:15] VITALS: BP 158/86; PULSE 68; RESP 16; TEMP 36.6; O2SAT 99
== END 2025-03-23 17:17 | disposition home or self-care (01) ==
PROVIDERS: Nurse Practitioner Family; Emergency Provider Family Medicine
DX: U07.1 COVID-19 (principal); R60.0 Localized edema; J44.9 Chronic obstructive pulmonary disease, unspecified; I48.91 Unspecified atrial fibrillation; N18.30 Chronic kidney disease, stage 3 unspecified; I25.10 Atherosclerotic heart disease of native coronary artery without angina pectoris; Z99.81 Dependence on supplemental oxygen; Z96.641 Presence of right artificial hip joint; Z79.899 Other long term (current) drug therapy
CPT/HCPCS: 36415; 71045; 80053; 81001; 83880; 84484; 85025; 87400; 87811; 93005; 93970; 99283

== ENCOUNTER 2025-04-06 12:39 | Emergency (ER) | payer OTHER, SELFPAY ==
[2025-04-06 12:40] VITALS: BMI 25.2
[2025-04-06 13:20] VITALS: BP 111/65; PULSE 70; RESP 18; TEMP 37; O2SAT 97
[2025-04-06] MEDS: LIDOCAINE HCL 1% 20 ML VIAL 10 ML IM (15:41)
[2025-04-06] MEDS: DIPHTH,PERTUSS(ACELL),TET VAC 0.5 ML SYR- ADULT IMi (15:41)
--- NOTE | 2025-04-06 18:29 | PD.EDLOWEX ---
Lower Extremity Injury RME/HPI General Chief Complaint: Extremity Injury, Lower Stated Complaint: CUT ON LEFT LEG SINCE 729 Time Seen by Provider: 04/06/25 12:59 Source: patient Arrival date/time: 04/06/25 12:39 Mode of arrival: ambulatory Limitations: no limitations RME / HPI RME / HPI Narrative: Approximately an hour prior to arrival patient hit her left lower leg against her walker resulting in a laceration to her leg. Denies any leg pain, no foreign body. Related Data Home Medications ?Medication ?Instructions ?Recorded ?Confirmed amiodarone 200 mg tablet 200 mg PO QPM 09/04/18 04/08/25 aspirin 81 mg tablet,delayed 81 mg PO PRN 05/20/19 04/08/25 release (Aspir-) timolol 0.5 % eye drops 1 drp ophthalmic (eye) BID 05/20/19 04/08/25 albuterol 90 mcg/actuation aerosol 90 mcg inhalation PRN PRN 05/09/22 04/08/25 inhaler Shortness Of Breath Or Wheezing ferrous sulfate 325 mg (65 mg 325 mg PO DAILY 05/09/22 04/08/25 iron) capsule,extended release ferrous sulfate 325 mg (65 mg 325 mg PO QDAY 05/09/22 04/08/25 iron) tablet (iron) fluticasone propionate 50 1 spray intranasal HS 05/09/22 04/08/25 mcg/actuation nasal spray,suspension loratadine 10 mg tablet 10 mg PO QDAY 05/09/22 04/08/25 [id number] 8 mg-folic 400 1 tab PO DAILY 05/09/22 04/08/25 mcg-K 50 mcg-lutein 300 mcg tablet (Centrum Silver Women) nitroglycerin 0.4 mg sublingual 0.4 mg buccal 1XD PRN Chest Pain 05/09/22 04/08/25 tablet tizanidine 2 mg tablet 2 mg PO PRN PRN muscle spasticity 05/09/22 04/08/25 vitamin E 400 unit tablet 45 mg PO QDAY 05/09/22 04/08/25 mirabegron 25 mg tablet,extended 25 mg PO QDAY 03/02/23 04/08/25 release 24 hr (Myrbetriq) Previous Rx's ?Medication ?Instructions ?Recorded hydrocodone 5 mg-acetaminophen 325 1 tab PO Q4HR PRN Pain Scale 4-6 02/27/25 mg tablet (Moderate #1 tab amoxicillin 875 mg-potassium 1 tab PO Q12H #10 tabs 04/06/25 clavulanate 125 mg tablet Allergies Allergy/AdvReac Type Severity Reaction Status Date / Time No Known Allergies Allergy Verified 04/08/25 09:10 ED Exam General Limitations: Present no limitations General appearance: Present alert and in no apparent distress Head Head exam: Present atraumatic and normocephalic Eye Eye exam: Present normal appearance, PERRL and EOMI ENT ENT exam: Present normal exam and normal oropharynx Neck Neck exam: Present normal inspection and full ROM Chest Chest inspection: Present normal inspection and symmetric chest wall rise Respiratory Respiratory exam: Present normal lung sounds bilaterally; Absent respiratory distress Cardiovascular Cardiovascular exam: Present regular rate and normal rhythm Abdominal Exam Abdominal exam: Present soft; Absent distention, tenderness or guarding Extremities Exam Extremities exam: Present other (~7 cm laceration to left lower leg, superficial, no foreign body, not actively bleeding. 2+ dp pulse LLE. Intact ROM LLE. ambulating at her baseline with a walker) Back Exam Back exam: Present normal inspection Neurological Exam Neurological exam: Present alert, oriented X3, CN II-XII intact and normal gait; Absent motor sensory deficit Psychiatric Psychiatric exam: Present normal affect and normal mood Skin Skin exam: Present warm, dry and normal color Course Quality Measures none Orders Category Date Time Status Lidocaine 1% 20 ml [Xylocaine 1% 20 ML] Med 04/06/25 13:31 Discontinued 10 ml IM X1 ONE TET,DIP/PERT AC (Adult)-Tdap [Boostrix Adult (Tdap) Med 04/06/25 13:31 Discontinued Vacc] 0.5 ml IMI .ONCE ONE Vital Signs Vital signs: Vital Signs Temperature 98.6 F 04/06/25 13:20 Pulse Rate 70 04/06/25 13:20 Respiratory Rate 18 04/06/25 13:20 Blood Pressure 111/65 04/06/25 13:20 Pulse Oximetry (%) 97 04/06/25 13:20 Oxygen Delivery Method Room Air 04/06/25 13:20 Extremity Injury, Lower MDM Narrative MDM Narrative:: The patient presents with a laceration to the left lower leg. There is no evidence of muscle, tendon, bone, or neurovascular involvement, and no active bleeding. There is no evidence of foreign body in the wound. The patient is not in significant pain. Tetanus is up to date. The laceration was thoroughly irrigated and successfully closed. Patient and is satisfied with the results and was told to return to the ED as instructed for suture/ removal in ~10 days. They are to keep the wound clean and dry with antibiotic ointment and minimize sun exposure. Oral abx provided. They were instructed to return if they notice increasing redness, swelling, pain, fever, or pus drainage at the laceration site concerning for wound infection. Patient verbalized understanding, feels comfortable with proposed plan, and all questions were answered prior to discharge.? Laceration Repair Procedure Note: ?Correct patient, procedure, side, site were confirmed, time out was taken. Consent: Patient Location: intermediate repairs to scalp, axillae, trunk and/or extremities (excluding hands and feet) Anesthesia: 1% Lidocaine Laceration type: linear ?Laceration Length: 2.6-7.5 cm Details: contaminated Suture Type: ethilon? ? ? Suture Size: 4-0? Number of sutures: 8 Debridement: Minimal ? ? FB Removal: Complete Complexity: Single Layer ? ? ? Irrigation: Copious ? Layers: single The wound was cleansed with normal saline irrigation under pressure. Wound exploration reveals no muscle, tendon, nerve injury or foreign body. Wound was repaired under sterile technique. Sterile dressing was applied. Patient tolerated the procedure well. Patient is neurovascularly intact. 8 sutures placed 4-0 Ethilon Patient data External records reviewed:: [facility] previous records Clinical information provided by:: patient Social determinants that could affect healthcare access:: none (elderly patient w/ difficulty taking care of self) Patient has the following chronic illnesses:: see mdm How is presenting disease/condition affected by chronic disease/condition?: exacerbated by Evaluation data The following diagnostics were reviewed and interpreted by me:: other (specify) Lab and/or radiology exams considered but not ordered:: none Interpretation Summary: see mdm Medications / Prescriptions Medications or Prescriptions considered but not ordered:: none Medication administrations:: Medication Administration History Discontinued Medications Diphtheria/Tetanus/Acell Pertussis (Diphth,Pertuss(Acell),Tet Vac 0.5 Ml Syr- Adult) 0.5 ml IMi .ONCE ONE Stop: 04/06/25 13:32 Last Admin: 04/06/25 15:41 Dose: 0.5 ml Documented By: Lidocaine HCl (Lidocaine Hcl 1% 20 Ml Vial) 10 ml IM X1 ONE Stop: 04/06/25 13:32 Last Admin: 04/06/25 15:41 Dose: 10 ml Documented By: see above Consultations Consultation(s) initiated? (list below): No Diagnosis Extremity Injury, Lower Differential Diagnosis: other (laceration, puncture wound) Most likely diagnosis given after review of the tests above:: laceration. Admission Indicated Admission indicated?: not indicated Admission Request Was there a request for admission?: No Disposition Plan Disposition Plan: Discharge Discharge Attestation Discharge Attestation: The patient and all family members were given an opportunity to ask questions and understood the discharge instructions. Discharge instructions specifically effects, indications for sooner follow up or return to the emergency department, and the expected course of current diagnosis. Patient condition: Stable Discharge Plan Plan Patient Disposition: HOME (Self Care) Prescriptions/Referrals Prescriptions/Med Rec: New amoxicillin-pot clavulanate 875-125 mg tablet 1 tab PO Q12H Qty: 10 0RF No Action Myrbetriq 25 mg tablet extended release 24 hr 25 mg PO QDAY amiodarone 200 mg Tablet 200 mg PO QPM aspirin [Aspir-81] 81 mg Tablet,Delayed Release (Dr/Ec) 81 mg PO PRN timolol 0.5 % Drops 1 drp OPHTHALMIC (EYE) BID hydrocodone-acetaminophen 5-325 mg Tablet 1 tab PO Q4HR MDD 4 PRN (Reason: Pain Scale 4-6 (Moderate) Qty: 1 0RF nitroglycerin 0.4 mg Tablet, Sublingual 0.4 mg BUCCAL 1XD PRN (Reason: Chest Pain) fluticasone propionate 50 mcg/actuation [place],Suspension 1 spray INTRANASAL HS Rx Instructions: administer into each nostril ferrous sulfate 325 mg (65 mg iron) Capsule, Extended Release 325 mg PO DAILY tizanidine 2 mg Tablet 2 mg PO PRN PRN (Reason: muscle spasticity) Centrum Silver Women 8 mg iron-400 mcg-300 mcg Tablet 1 tab PO DAILY ferrous sulfate [iron] 325 mg (65 mg iron) Tablet 325 mg PO QDAY vitamin E 400 unit Tablet 45 mg PO QDAY albuterol 90 mcg/actuation Aerosol 90 mcg INHALATION PRN PRN (Reason: Shortness Of Breath Or Wheezing) loratadine 10 mg Tablet 10 mg PO QDAY Referrals: dAriana Knutson MD [Primary Care Provider] - In 1 week Problem List Clinical Impression: Laceration of leg Patient/Caregiver Discharge Instructions Education Materials: ED Laceration: All Closures Additional Instructions: Please return to the emergency department your primary care doctor's office within 7 to 10 days for suture removal. Please monitor for signs of infection Print Language: Divehi Stand Alone Forms: Kateryna Award Info., Patient Portal Info Letter
== END 2025-04-06 19:23 | disposition home or self-care (01) ==
PROVIDERS: Emergency Provider Emergency Medicine; PCP Internal Medicine
DX: S81.812A Laceration without foreign body, left lower leg, initial encounter (principal); W22.8XXA Striking against or struck by other objects, initial encounter; Z23 Encounter for immunization
CPT/HCPCS: 12002; 90471; 90715; 99282; J3490

== ENCOUNTER 2025-04-08 08:48 | Outpatient (AMB) | payer OTHER, SELFPAY ==
[2025-04-08 09:09] VITALS: BP 118/71; PULSE 67; RESP 18; TEMP 36.4; O2SAT 97; BMI 19.1
--- NOTE | 2025-04-08 09:09 | PD.ORTHCLVIS ---
Vital signs 04/08/25 09:09 Height 1.65 m Height Method Measured Weight 51.908 kg Weight Measurement Method Standing Scale BMI 19.1 BP 118/71 Blood Pressure Source Automatic Cuff Blood Pressure Location Left Upper Arm Position Sitting Respiration 18 Pulse 67 Pulse Source Monitor Temp 97.6 F Temp Source Temporal Artery Scan Pulse Oximetry (%) 97 Oxygen Delivery Method Room Air Med/Allergies Allergies & Medications Allergies No Known Allergies Allergy (Verified 04/08/25 09:10) Medication Reconciliation amiodarone 200 mg tablet 200 mg PO QPM 09/04/18 [History Confirmed 04/08/25] aspirin 81 mg tablet,delayed release (Aspir-) 81 mg PO PRN 05/20/19 [History Confirmed 04/08/25] timolol 0.5 % eye drops 1 drp ophthalmic (eye) BID 05/20/19 [History Confirmed 04/08/25] albuterol 90 mcg/actuation aerosol inhaler 90 mcg inhalation PRN PRN Shortness Of Breath Or Wheezing 05/09/22 [History Confirmed 04/08/25] ferrous sulfate 325 mg (65 mg iron) capsule,extended release 325 mg PO DAILY 05/09/22 [History Confirmed 04/08/25] ferrous sulfate 325 mg (65 mg iron) tablet (iron) 325 mg PO QDAY 05/09/22 [History Confirmed 04/08/25] fluticasone propionate 50 mcg/actuation nasal spray,suspension 1 spray intranasal HS 05/09/22 [History Confirmed 04/08/25] loratadine 10 mg tablet 10 mg PO QDAY 05/09/22 [History Confirmed 04/08/25] [id number]-[id number] 8 mg-folic 400 mcg-K 50 mcg-lutein 300 mcg tablet (Centrum Silver Women) 1 tab PO DAILY 05/09/22 [History Confirmed 04/08/25] nitroglycerin 0.4 mg sublingual tablet 0.4 mg buccal 1XD PRN Chest Pain 05/09/22 [History Confirmed 04/08/25] tizanidine 2 mg tablet 2 mg PO PRN PRN muscle spasticity 05/09/22 [History Confirmed 04/08/25] vitamin E 400 unit tablet 45 mg PO QDAY 05/09/22 [History Confirmed 04/08/25] mirabegron 25 mg tablet,extended release 24 hr (Myrbetriq) 25 mg PO QDAY 03/02/23 [History Confirmed 04/08/25] hydrocodone 5 mg-acetaminophen 325 mg tablet 1 tab PO Q4HR PRN Pain Scale 4-6 (Moderate #1 tab 02/27/25 [Rx Confirmed 04/08/25] amoxicillin 875 mg-potassium clavulanate 125 mg tablet 1 tab PO Q12H #10 tabs 04/06/25 [Rx Confirmed 04/08/25] Exam Exam Patient is in no acute distress and is cooperative with the examination today. Patient has a normal mood and affect. Breathing is nonlabored. In no respiratory distress. Bilateral extremities were evaluated and demonstrates sensation intact to light touch. Palpable pedal pulses are present. No significant edema is present. Right hip incision is clean dry intact Assessment and Plan Problem List (1) Closed fracture of lateral portion of tibial plateau: Status: Acute Plan: Patient is an 83-year-old female who is doing well with a right hip hemiarthroplasty. We will see her back in approximately 4 weeks. We need new x-rays. She is doing well status post right hip hemiarthroplasty (2) Closed displaced fracture of right femoral neck: Status: Acute Plan: Patient can should continue physical therapy Advanced Care Planning Discussion Advance care planning discussed with:: patient Office Procedures GNS Level of Care Nursing/Assessment Patient Status: Established Patient Nursing Assessment/Reassesment: Medication Reconciliation, Orthostatic Vitals, Update PMH in EMR and Vital Signs Coordination of Care: Complex Care and Chronic Disease 1-5, Education Complex Pt/Fam, Consent,records obtained, informed consent, Results/Orders obtained and Staff clarify orders Established Patient Charge Established Patient Point Assignment: 105 Established Patient Point Charge: EP Level 3 (80-115) MA Intake Visit Data Collection New Patient or Established: Established Patient (seen at [facility] within 3 years) Reason for Visit:: 6 WEEK LEFT LUIS Seen by Clinical Staff ONLY (RN/MA): No Steel Turner Required: No PCP or OBGYN visit in last 3 months: Yes Hx Now: No Do You Feel Safe at Home: Yes Authorities Contacted: N/A Questionairres Past Medical History Past Medical History Have you ever been diagnosed with any of the following: Neurological Problems Cerebrovascular Accident (CVA): No Transient Ischemic Attacks (TIA): No Dementia: No Alzheimer's Disease: No Parkinson's Disease: No Brain Tumor: No Meningitis: No Seizures: No Epilepsy: No Multiple Sclerosis: No Cerebral Palsy: No Amyotrophic Lateral Sclerosis (ALS/Sarah Gehrig's): No Guillain-[place] Syndrome: No Spina Bifida: No Paralysis: No Peripheral Neuropathy: No Perez's Palsy: No Subdural Hematoma: No Migraine: No Head Trauma: No Spinal Cord Injury: No Traumatic Brain Injury: No Cardiology Problems Myocardial Infarction: No Cardiac Arrhythmia: No Atrial Fibrillation: Yes Angina: Yes Heart Murmur: No Coronary Artery Disease: Yes Atherosclerotic Heart Disease: Yes Peripheral Vascular Disease: No Hypercholesterolemia: No Aneurysm: No Congestive Heart Failure: No Congenital Heart Disease: No Valvular Heart Disease: No Rheumatic Fever: No Cardiomyopathy: No Edema: Yes Pericarditis: No Cellulitis: No Deep Vein Thrombosis: No Hypertension: No Hypotension: No Varicose Veins: No Respiratory Problems Chronic Obstructive Pulmonary Disease (COPD): Yes Asthma: No Bronchitis: No Emphysema: No Pneumonia: No Pulmonary Fibrosis: No Tuberculosis: No Pulmonary Embolism: No Pulmonary Edema: No Sleep Apnea: No Stomache/Intestinal Problems Hepatitis: No Cirrhosis: No Pancreatitis: No Celiac Disease: No Gall Bladder Disease: Yes Gastrointestinal Bleed: No Esophageal Varices: No Munoz's Esophagus: No Colitis: No Ulcerative Colitis: No Diverticulitis: No Diverticulosis: No Ulcer: No Colorectal Cancer: No Irritable Bowel: No Crohn's Disease: No Obstructive Bowel: No Hiatal Hernia: No Hemorrhoids: No Gastroesophageal Reflux Disease: No Obesity: No Genital/Urinary Problems Renal Disease: No Kidney Stones: No Polycystic Kidney Disease: No Neurogenic Bladder: No Inguinal Hernia: No Dialysis: No Reproductive Problems Breast Cancer: No Endometriosis: No Genital Herpes: No Gonorrhea: No Pelvic Inflammatory Disease: No Previous Pregnancies: Yes Syphilis: No Uterine Prolapse: No Musculoskeletal Problems Muscular Dystrophy: No Myasthenia Gravis: No Marfan's Syndrome: No Bone Cancer: No Arthritis: Yes Rheumatoid Arthritis: No Osteoporosis: No Degenerative Disk Disease: No Gout: No Scoliosis: No Carpal Tunnel Syndrome: No Fibromyalgia: No Fractures: Yes Degenerative Joint Disease: No Osteomyelitis: No Poliovirus: No Head,Eye,Nose,Throat Problems Cataracts: No Glaucoma: Yes Blind: No Retinal Detachment: No Macular Degeneration: No Chronic Ear Infections: No Deafness: No Eye Prosthesis: No Endocrine Problems Diabetes Mellitus Type 1: No Diabetes Mellitus Type 2: No Hypoglycemia: No Rere's Syndrome: No [place]'s Disease: No Hyperthyroidism: No Hypothyroidism: No Parathyroid Disease: No Pituitary Disease: No Systemic Lupus Erythematosus: No Syndrome of Inappropriate Antidiuretic Hormone: No Adrenal Disease: No Graves' Disease: No Blood Problems Anemia: No Leukemia: No Hemophilia: No Thalassemia: No Sickle Cell Disease: No Psychologic Problems Schizophrenia: No Recreational Drug Use: No Bipolar Disorder: No Depression: No Anxiety: No Behavior Problems: No Self-Mutilation: No Attention Deficit Disorder: No Attention Deficit Hyperactivity Disorder: No Depression: No Post Traumatic Stress Disorder: No Eating Disorder: No Other Problems Hospitalization: Yes Down Syndrome: No Autism: No Developmental Delay: No Shingles: Yes Falls: Yes Blood Transfusions: No Blood Transfusion Reaction: No Anesthesia Reactions: No Organ Transplant: No Chemotherapy: No Radiation Therapy: No Hyperbaric Therapy: No MRSA: No Vancomycin-Resistant Enterococci: No Human Immunodeficiency Virus (HIV): No Chicken Pox: Yes Measles: Yes Mumps: No Rubella ([place] Measles): No Pertussis: No Clostridium Difficile: No Cancer: No Cervical Cancer: No Lung Cancer: No Ovarian Cancer: No Surgical History Carotid Endarterectomy: No Coronary Artery Bypass Graft: No Valve Replacement: No Hysterectomy: Yes Pacemaker: No Thyroidectomy: No Subjective Visit Visit for: follow up visit, post op #2 and hip Immunization / Flu Flu Vaccine in the Last 12 Months: Yes Flu Vaccine Exclusion Criteria: Already Received History of Present Illness Chief complaint: 6 WEEK LEFT LUIS Urinary patient is an 84-year-old female with right hip pain status post right hip hemiarthroplasty replacement. She is doing well. She had a laceration on her contralateral leg and went to the ER. This was stitched up 2 days ago and is doing well. Personal History Red flag PMH: none BMI Counceling provided: No Pain Pain level (0-10): 1 Pain location: buttock Pain quality: dull Ambulatory data Ambulatory device: other (specify) (WHEELCHAIR) Treatments Improvement with previous injections: No Improvement with PT: No Improvement with NSAIDS: no Review of Systems Review of Systems: All systems negative unless otherwise noted in HPI.
--- NOTE | 2025-04-08 09:25 | XR_ITS ---
Examination:Right hip AP, lateral, AP pelvis 3 views Technique: Hip AP lateral, AP pelvis, 3 views Exam date and time:April 08, 2025, 0931 hours, comparison February 26, 2025 INDICATIONS: Status post right hip replacement 2 months ago. FINDINGS: Right hip hemiarthroplasty. Satisfactory alignment. No fracture. No loosening of the prosthetic components. Mild to moderate narrowing left hip joint IMPRESSION: Right hip hemiarthroplasty with satisfactory alignment..
== END 2025-04-08 09:28 | disposition home or self-care (01) ==
LOC: HODSRG 08:48
PROVIDERS: PCP Family Medicine; Referring Provider Family Medicine; Supervising Provider Orthopaedic Surgery Adult Reconstructive Orthopaedic Surgery; Visit Provider Orthopaedic Surgery Adult Reconstructive Orthopaedic Surgery
DX: S82.141D Displaced bicondylar fracture of right tibia, subsequent encounter for closed fracture with routine healing (principal); S72.001D Fracture of unspecified part of neck of right femur, subsequent encounter for closed fracture with routine healing; X58.XXXD Exposure to other specified factors, subsequent encounter; I48.91 Unspecified atrial fibrillation; I25.10 Atherosclerotic heart disease of native coronary artery without angina pectoris; J44.9 Chronic obstructive pulmonary disease, unspecified
CPT/HCPCS: 73502; 99213; G0463

== ENCOUNTER → 2025-04-21 | Outpatient (CLI) | payer OTHER, SELFPAY ==
[2025-04-21 12:21] LABS: Collection Type, Urine Clean Catch
[2025-04-21 14:14] LABS: Bilirubin,Urine Negative (Negative); Blood,Urine Negative (Negative); Clarity,Urine Clear (Clear/Hazy); Color,Urine Lt-Yellow (Lt Yel-Yel); Culture Indicated,Urine Not Indicated; Glucose, Urine Negative (Negative); Hyaline Casts,Urine < 1 /hpf (0-1); Ketones,Urine Negative (Negative); Leukocyte Esterase,Urine Negative (Negative); Nitrite,Urine Negative (Negative); PH,Urine 6.5 (5.0-7.0); Protein,Urine Negative (Neg - Trace); RBC,Urine 1 /hpf (0-3); Specific Gravity,Urine 1.008 (1.001-1.035); Squamous Epithelial Cell,Urine 2 /hpf (0-5); Urobilinogen,Urine Negative mg/dL (0.0-1.0); WBC,Urine 2 /hpf (0-5)
== END | disposition home or self-care (01) ==
LOC: SLDO 12:04
PROVIDERS: PCP Internal Medicine; Referring Provider Internal Medicine; Visit Provider Internal Medicine
DX: R30.9 Painful micturition, unspecified (principal)
CPT/HCPCS: 81001

== ENCOUNTER → 2025-05-14 | Outpatient (CLI) | payer OTHER, SELFPAY ==
--- NOTE | 2025-05-14 14:30 | XR_ITS ---
Examination: CT abdomen without intravenous contrast. Coronal 2-D reconstructions. Sagittal 2-D reconstructions. Date and time of exam:September,, 1336 hours, comparison September 10, 2024 INDICATIONS: Epigastric pain beginning one week ago, diagnosis cirrhosis CTDI: vol (mGy): 4.65 DLP: (mGycm): 148 Technique: Axial images of the abdomen have been obtained, 3 mm slice thickness, without intravenous contrast 2-D sagittal coronal reconstructions Low dose protocols were performed. One or more of the following dose reduction techniques were used; automated exposure control, adjustment of the mA and/or KV according to patient size, use of iterative reconstruction technique. Findings: Mild enlargement cardiac contour Liver is irregular in contour with mild intrahepatic biliary tract dilatation Absent gallbladder Spleen is not enlarged Pancreatic duct is mildly dilated No hydronephrosis Aorta normal size Colonic diverticulosis Normal appendix Severe osteopenia, sclerosis involving the S1 vertebral body, sagittal image 113 IMPRESSION: Primary hepatocellular disease Mild intrahepatic biliary tract dilatation, mildly dilated pancreatic duct, recommend hepatobiliary sonography follow-up Normal appendix Abnormal sclerosis involving the S1 vertebral body, consider MRI lumbar spine follow-up pre and postcontrast to exclude early osseous metastatic disease
== END | disposition home or self-care (01) ==
PROVIDERS: Referring Provider Internal Medicine; Visit Provider Internal Medicine
DX: K76.9 Liver disease, unspecified (principal); K83.8 Other specified diseases of biliary tract; K86.89 Other specified diseases of pancreas; G95.89 Other specified diseases of spinal cord
CPT/HCPCS: 74150

== ENCOUNTER 2025-05-15 10:22 | Outpatient (AMB) | payer OTHER, SELFPAY ==
[2025-05-15 10:45] VITALS: BP 82/52; PULSE 54; RESP 18; TEMP 36.7; O2SAT 97; BMI 19.1
--- NOTE | 2025-05-15 10:45 | ORTHONT_ITS ---
Vital signs 05/15/25 10:45 Height 1.65 m Height Method Stated Weight 52.191 kg Weight Measurement Method Standing Scale BMI 19.1 BP 82/52 L Blood Pressure Source Automatic Cuff Blood Pressure Location Right Upper Arm Position Sitting Respiration 18 Pulse 54 L Pulse Source Monitor Temp 98.1 F Temp Source Temporal Artery Scan Pulse Oximetry (%) 97 Oxygen Delivery Method Room Air Med/Allergies Allergies & Medications Allergies No Known Allergies Allergy (Verified 05/15/25 10:46) Medication Reconciliation amiodarone 200 mg tablet 200 mg PO QPM 09/04/18 [History Confirmed 05/15/25] aspirin 81 mg tablet,delayed release (Aspir-) 81 mg PO PRN 05/20/19 [History Confirmed 05/15/25] timolol 0.5 % eye drops 1 drp ophthalmic (eye) BID 05/20/19 [History Confirmed 05/15/25] albuterol 90 mcg/actuation aerosol inhaler 90 mcg inhalation PRN PRN Shortness Of Breath Or Wheezing 05/09/22 [History Confirmed 05/15/25] ferrous sulfate 325 mg (65 mg iron) capsule,extended release 325 mg PO DAILY 0 05/09/22 [History Confirmed 05/15/25] ferrous sulfate 325 mg (65 mg iron) tablet (iron) 325 mg PO QDAY 05/09/22 [History Confirmed 05/15/25] fluticasone propionate 50 mcg/actuation nasal spray,suspension 1 spray intranasal HS 05/09/22 [History Confirmed 05/15/25] loratadine 10 mg tablet 10 mg PO QDAY 05/09/22 [History Confirmed 05/15/25] ejlstjfd-[id number]-[id number] 8 mg-folic 400 mcg-K 50 mcg-lutein 300 mcg tablet (Centrum Silver Women) 1 tab PO DAILY 05/09/22 [History Confirmed 05/15/25] nitroglycerin 0.4 mg sublingual tablet 0.4 mg buccal 1XD PRN Chest Pain 05/09/22 [History Confirmed 05/15/25] tizanidine 2 mg tablet 2 mg PO PRN PRN muscle spasticity 05/09/22 [History Confirmed 05/15/25] vitamin E 400 unit tablet 45 mg PO QDAY 05/09/22 [History Confirmed 05/15/25] mirabegron 25 mg tablet,extended release 24 hr (Myrbetriq) 25 mg PO QDAY 03/02/23 [History Confirmed 05/15/25] hydrocodone 5 mg-acetaminophen 325 mg tablet 1 tab PO Q4HR PRN Pain Scale 4-6 (Moderate #1 tab 02/27/25 [Rx Confirmed 05/15/25] amoxicillin 875 mg-potassium clavulanate 125 mg tablet 1 tab PO Q12H #10 tabs 04/06/25 [Rx Confirmed 05/15/25] Exam Exam Patient is in no acute distress and is cooperative with the examination today. Patient has a normal mood and affect. Breathing is nonlabored. In no respiratory distress. Bilateral extremities were evaluated and demonstrates sensation intact to light touch. Palpable pedal pulses are present. No significant edema is present. Right hip incision is clean dry intact. Leg lengths are equal Assessment and Plan Problem List (1) Closed fracture of lateral portion of tibial plateau: Status: Acute Plan: Patient is an 83-year-old female who is doing well with a right hip hemiarthroplasty. We will see her back in approximately 4 weeks. Her last knee x-rays are great. she is doing well status post right hip hemiarthroplasty (2) Closed displaced fracture of right femoral neck: Status: Acute Advanced Care Planning Discussion Advance care planning discussed with:: patient Office Procedures GNS Level of Care Nursing/Assessment Patient Status: Established Patient Nursing Assessment/Reassesment: Medication Reconciliation, Update PMH in EMR and Vital Signs Coordination of Care: Complex Care and Chronic Disease 1-5, Education Complex Pt/Fam, Consent,records obtained, informed consent, Results/Orders obtained and Staff clarify orders Established Patient Charge Established Patient Point Assignment: 95 MA Intake Visit Data Collection New Patient or Established: Established Patient (seen at [facility] within 3 years) Reason for Visit:: Xrays Seen by Clinical Staff ONLY (RN/MA): No Verbal consent obtained for Telemed visit?: No Questionairres Past Medical History Past Medical History Have you ever been diagnosed with any of the following: Neurological Problems Cerebrovascular Accident (CVA): No Transient Ischemic Attacks (TIA): No Dementia: No Alzheimer's Disease: No Parkinson's Disease: No Brain Tumor: No Meningitis: No Seizures: No Epilepsy: No Multiple Sclerosis: No Cerebral Palsy: No Amyotrophic Lateral Sclerosis (ALS/Sarah Gehrig's): No Guillain-[place] Syndrome: No Spina Bifida: No Paralysis: No Peripheral Neuropathy: No Perez's Palsy: No Subdural Hematoma: No Migraine: No Head Trauma: No Spinal Cord Injury: No Traumatic Brain Injury: No Cardiology Problems Myocardial Infarction: No Cardiac Arrhythmia: No Atrial Fibrillation: Yes Angina: Yes Heart Murmur: No Coronary Artery Disease: Yes Atherosclerotic Heart Disease: Yes Peripheral Vascular Disease: No Hypercholesterolemia: No Aneurysm: No Congestive Heart Failure: No Congenital Heart Disease: No Valvular Heart Disease: No Rheumatic Fever: No Cardiomyopathy: No Edema: Yes Pericarditis: No Cellulitis: No Deep Vein Thrombosis: No Hypertension: No Hypotension: No Varicose Veins: No Respiratory Problems Chronic Obstructive Pulmonary Disease (COPD): Yes Asthma: No Bronchitis: No Emphysema: No Pneumonia: No Pulmonary Fibrosis: No Tuberculosis: No Pulmonary Embolism: No Pulmonary Edema: No Sleep Apnea: No Stomache/Intestinal Problems Hepatitis: No Cirrhosis: No Pancreatitis: No Celiac Disease: No Gall Bladder Disease: Yes Gastrointestinal Bleed: No Esophageal Varices: No Munoz's Esophagus: No Colitis: No Ulcerative Colitis: No Diverticulitis: No Diverticulosis: No Ulcer: No Colorectal Cancer: No Irritable Bowel: No Crohn's Disease: No Obstructive Bowel: No Hiatal Hernia: No Hemorrhoids: No Gastroesophageal Reflux Disease: No Obesity: No Genital/Urinary Problems Renal Disease: No Kidney Stones: No Polycystic Kidney Disease: No Neurogenic Bladder: No Inguinal Hernia: No Dialysis: No Reproductive Problems Breast Cancer: No Endometriosis: No Genital Herpes: No Gonorrhea: No Pelvic Inflammatory Disease: No Previous Pregnancies: Yes Syphilis: No Uterine Prolapse: No Musculoskeletal Problems Muscular Dystrophy: No Myasthenia Gravis: No Marfan's Syndrome: No Bone Cancer: No Arthritis: Yes Rheumatoid Arthritis: No Osteoporosis: No Degenerative Disk Disease: No Gout: No Scoliosis: No Carpal Tunnel Syndrome: No Fibromyalgia: No Fractures: Yes Degenerative Joint Disease: No Osteomyelitis: No Poliovirus: No Head,Eye,Nose,Throat Problems Cataracts: No Glaucoma: Yes Blind: No Retinal Detachment: No Macular Degeneration: No Chronic Ear Infections: No Deafness: No Eye Prosthesis: No Endocrine Problems Diabetes Mellitus Type 1: No Diabetes Mellitus Type 2: No Hypoglycemia: No Rere's Syndrome: No [place]'s Disease: No Hyperthyroidism: No Hypothyroidism: No Parathyroid Disease: No Pituitary Disease: No Systemic Lupus Erythematosus: No Syndrome of Inappropriate Antidiuretic Hormone: No Adrenal Disease: No Graves' Disease: No Blood Problems Anemia: No Leukemia: No Hemophilia: No Thalassemia: No Sickle Cell Disease: No Psychologic Problems Schizophrenia: No Recreational Drug Use: No Bipolar Disorder: No Depression: No Anxiety: No Behavior Problems: No Self-Mutilation: No Attention Deficit Disorder: No Attention Deficit Hyperactivity Disorder: No Depression: No Post Traumatic Stress Disorder: No Eating Disorder: No Other Problems Hospitalization: Yes Down Syndrome: No Autism: No Developmental Delay: No Shingles: Yes Falls: Yes Blood Transfusions: No Blood Transfusion Reaction: No Anesthesia Reactions: No Organ Transplant: No Chemotherapy: No Radiation Therapy: No Hyperbaric Therapy: No MRSA: No Vancomycin-Resistant Enterococci: No Human Immunodeficiency Virus (HIV): No Chicken Pox: Yes Measles: Yes Mumps: No Rubella ([place] Measles): No Pertussis: No Clostridium Difficile: No Cancer: No Cervical Cancer: No Lung Cancer: No Ovarian Cancer: No Surgical History Carotid Endarterectomy: No Coronary Artery Bypass Graft: No Valve Replacement: No Hysterectomy: Yes Pacemaker: No Thyroidectomy: No Subjective Visit Visit for: follow up visit, hip and x-rays Immunization / Flu Flu Vaccine in the Last 12 Months: No Flu Vaccine Exclusion Criteria: No Exclusion Criteria History of Present Illness Chief complaint: HIP XRAYS Urinary patient is an 84-year-old female with right hip pain status post right hip hemiarthroplasty replacement. She is doing well. She is doing well and we will see her back in 6 months Personal History Occupation: RETIRED Red flag PMH: none BMI Counceling provided: No Pain Pain level (0-10): 0 Pain location: buttock Pain quality: dull Ambulatory data Ambulatory device: none Treatments Improvement with previous injections: No Improvement with PT: No Improvement with NSAIDS: no Review of Systems Review of Systems: All systems negative unless otherwise noted in HPI.
== END 2025-05-15 10:56 | disposition home or self-care (01) ==
LOC: HODSRG 10:22
PROVIDERS: PCP Family Medicine; Referring Provider Family Medicine; Supervising Provider Orthopaedic Surgery Adult Reconstructive Orthopaedic Surgery; Visit Provider Orthopaedic Surgery Adult Reconstructive Orthopaedic Surgery
DX: Z47.1 Aftercare following joint replacement surgery (principal); Z96.641 Presence of right artificial hip joint
CPT/HCPCS: 99213; G0463

== ENCOUNTER → 2025-07-15 | Outpatient (CLI) | payer OTHER, SELFPAY ==
[2025-07-15 10:04] LABS: Basophils # (Auto) 0.0 Thou/mm3 (0.0-0.2); Basophils % (Auto) 1 % (0-2.5); Eosinophils # (Auto) 0.1 Thou/mm3 (0.0-0.5); Eosinophils % (Auto) 1 % (0-10); Hematocrit 37.5 % (36.0-46.0); Hemoglobin 12.1 g/dL (12.0-16.0); Immature Granulocytes Auto 0.01 Thou/mm3 (0.00-0.00); Lymphocytes # (Auto) 1.9 Thou/mm3 (1.0-4.8); Lymphocytes % (Auto) 30 % (10-50); Mean Corpuscular HGB Conc 32.3 g/dl (31.0-37.0); Mean Corpuscular Hemoglobin 31.8 pg (25.0-35.0); Mean Corpuscular Volume 99 fL (80-100); Monocytes # (Auto) 0.5 Thou/mm3 (0.0-0.8); Monocytes % (Auto) 9 % (0-12); Neutrophils # (Auto) 3.7 Thou/mm3 (1.8-7.7); Neutrophils % (Auto) 59 % (37-80); Nucleated Red Blood Cell # 0.02 Thou/mm3 (0.00-0.00); Nucleated Red Blood Cell % 0 /100 WBC (0); Platelet Count 192 Thou/mm3 (140-440); RDW Standard Deviation 49.8 fL (36.4-46.3); Red Blood Count 3.80 Miln/mm3 (4.00-5.20); White Blood Count 6.2 Thou/mm3 (3.6-11.0)
[2025-07-15 10:27] LABS: Alanine Aminotransferase 14 U/L (10-49); Albumin, Serum 4.5 gm/dL (3.4-4.8); Alkaline Phosphatase 84 U/L (46-116); Anion Gap 9 (7-16); Aspartate Amino Transferase 24 U/L (0-34); BUN/Creatinine Ratio 11 Ratio (12-20); Blood Urea Nitrogen 11 mg/dL (9-23); Calcium 10.1 mg/dL (8.3-10.6); Calcium (Corrected) 10.1 mg/dL (8.5-10.1); Carbon Dioxide 31.2 mMol/L (20.0-31.0); Chloride 103 mMol/L (98-107); Creatinine (Component) 1.0 mg/dL (0.6-1.3); Glucose 111 mg/dL (74-106); Osmolality,Calculated 285 (275-295); Potassium 4.2 mMol/L (3.4-5.1); Sodium 143 mMol/L (136-145); Thyroid Stimulating Hormone 3.02 uIU/mL (0.55-4.78); Uric Acid 2.8 mg/dL (3.1-7.8); eGFR 55 See Note
[2025-07-15 11:59] LABS: Collection Type, Urine Catheter
[2025-07-15 12:44] LABS: Bilirubin,Urine Negative (Negative); Blood,Urine Negative (Negative); Clarity,Urine Hazy (Clear/Hazy); Color,Urine Yellow (Lt Yel-Yel); Culture Indicated,Urine Not Indicated; Glucose, Urine Negative (Negative); Ketones,Urine Negative (Negative); Leukocyte Esterase,Urine Negative (Negative); Nitrite,Urine Negative (Negative); PH,Urine 7.0 (5.0-7.0); Protein,Urine Trace (Neg - Trace); RBC,Urine 4 /hpf (0-3); Specific Gravity,Urine 1.021 (1.001-1.035); Squamous Epithelial Cell,Urine 8 /hpf (0-5); Urobilinogen,Urine 2.0 mg/dL (0.0-1.0); WBC,Urine 3 /hpf (0-5)
[2025-07-15 13:05] LABS: Albumin/Globulin Ratio 1.7 (1.2-2.2); Bilirubin,Total 0.7 mg/dL (0.3-1.2); Globulin 2.6 gm/dL (2.3-3.5); Total Protein 7.1 gm/dL (5.7-8.2)
[2025-07-15 13:27] LABS: Cardiac Risk Estimate 2.8 RATIO (3.7-5.6); Cholesterol 201 mg/dL (132-200); HDL Cholesterol 72 mg/dL (40-60); LDL Cholesterol,Calculated 115 mg/dL (0-130); Triglycerides 70 mg/dL (30-150)
[2025-07-15 13:43] LABS: Vitamin B12 419 pg/mL (211-911); Vitamin D 25 Hydroxy Total 97.0 ng/mL (7.3-40.2)
== END | disposition home or self-care (01) ==
PROVIDERS: PCP Internal Medicine; Referring Provider Internal Medicine; Visit Provider Internal Medicine
DX: Z00.00 Encounter for general adult medical examination without abnormal findings (principal); I49.1 Atrial premature depolarization; N39.0 Urinary tract infection, site not specified; D51.9 Vitamin B12 deficiency anemia, unspecified; E55.9 Vitamin D deficiency, unspecified
CPT/HCPCS: 36415; 80053; 80061; 81001; 82306; 82607; 84443; 84550; 85025

== ENCOUNTER → 2025-07-18 | Outpatient (CLI) | payer OTHER, SELFPAY ==
--- NOTE | 2025-07-18 10:59 | XR_ITS ---
EXAMINATION: PA lateral chest 2 views TECHNIQUE: Upright PA lateral chest 2 views Date and time: July 18, 2025, 11:28 a.m., comparison March 23, 2025 INDICATIONS: Shortness of breath chronic FINDINGS: COPD with significant hyperexpansion Normal heart size Ectatic thoracic aorta. No pneumonia or pulmonary edema Prominent osteopenia IMPRESSION: COPD with significant hyperexpansion
== END | disposition home or self-care (01) ==
LOC: CDIM 10:36
PROVIDERS: PCP Internal Medicine; Referring Provider Internal Medicine; Visit Provider Internal Medicine
DX: J44.9 Chronic obstructive pulmonary disease, unspecified (principal)
CPT/HCPCS: 71046